=== PATIENT | male | born 1945 | race Caucasian/White ===

== ENCOUNTER 2016-12-07 09:15 | Outpatient (CLI) | payer MEDICARE, OTHER ==
[2016-12-07] MEDS ORDERED: IOPAMIDOL-300 100 ML VIAL IVP ONE (11:10)
[2016-12-07] MEDS ORDERED: IOPAMIDOL-300 50 ML VIAL PO ONE (11:10)
== END 2016-12-07 09:16 | disposition home or self-care (01) ==
DX: R10.10 Upper abdominal pain, unspecified (principal); R10.30 Lower abdominal pain, unspecified; K40.20 Bilateral inguinal hernia, without obstruction or gangrene, not specified as recurrent
CPT/HCPCS: 36415; 74177; 82565; Q9967

== ENCOUNTER 2017-01-27 18:15 | Emergency (ER) | payer MEDICARE, OTHER | END 2017-01-27 19:21 | disposition home or self-care (01) | DX: H60.501 Unspecified acute noninfective otitis externa, right ear (principal) ==

== ENCOUNTER 2017-08-27 10:34 | Emergency (ER) | payer MEDICARE, OTHER ==
--- NOTE | 2017-08-27 12:14 | ED Physician Documentation ---
PD HANSEL HEENT - Stated complaint Stated Complaint: SORE THROAT,HEMORRHOIDS - Chief complaint Chief Complaint: Cardiac - History obtained from History obtained from: Patient, Family - History of Present Illness Timing - onset: How many months ago (2) Timing - duration: Months (2) Timing - details: Gradual onset, Still present, Waxing and waning Location: Throat Improves: Nothing Worsens: Swalllowing Associated symptoms: Congestion, Rhinorrhea, Cough Similar symptoms before: Has not had sx before Recently seen: Other - Additional information Additional information: 71-year-old male has had an issue with a sore throat for the past 2 months. He indicates he has a sensation that he has some phlegm that comes up and some pain associated with this. He also has some cough that is intermittent and he has some abdominal pain associated with this in the form of an inguinal hernia on the left side. He has been into see his doctor about the inguinal hernia he has not been in to see his doctor about this cough and congestion he has had. Earlier in the year he had some otitis externa on the right side is been using treatment for this and this appears to have improved. Review of Systems Constitutional: reports: Myalgias, Fatigue. denies: Fever Eyes: denies: Decreased vision Ears: reports: Ear pain Nose: reports: Rhinorrhea / runny nose, Congestion Throat: reports: Sore throat Cardiac: denies: Chest pain / pressure, Palpitations Respiratory: reports: Cough. denies: Dyspnea GI: reports: Abdominal Pain. denies: Nausea, Vomiting : denies: Dysuria, Frequency Skin: denies: Rash Musculoskeletal: denies: Neck pain, Back pain, Extremity pain PD PAST MEDICAL HISTORY - Past Surgical History Past Surgical History: Yes General: Appendectomy - Present Medications Home Medications: Ambulatory Orders Medication Instructions Recorded Confirmed Azithromycin [Zithromax] 250 mg PO DAILY #6 tablet 08/27/17 Phenylephrine HCl/[place] 08/27/17 [Hemorrhoidal Suppositories] - Allergies Allergies/Adverse Reactions: Allergies Allergy/AdvReac Type Severity Reaction Status Date / Time No Known Drug Allergies Allergy Verified 01/27/17 18:25 - Social History Does the pt smoke?: No Smoking Status: Never smoker Does the pt drink ETOH?: No Does the pt have substance abuse?: No PD ED PE NORMAL - Vitals Vital signs reviewed: Yes (hypertensive mild ) - General General: No acute distress, Well developed/nourished - HEENT HEENT: Atraumatic, PERRL, EOMI, Other (both TM's are inflamed over the umbo worse on the right than the left and the pharynx is with inflamaito over the tonsilar bed with exudate. ) - Neck Neck: Supple, no meningeal sign, No bony TTP - Cardiac Cardiac: RRR, No murmur - Respiratory Respiratory: No respiratory distress, Clear bilaterally - Abdomen Abdomen: Soft, Non tender - Back Back: No CVA TTP, No spinal TTP - Derm Derm: Normal color, Warm and dry, No rash - Extremities Extremities: No deformity, No edema - Neuro Neuro: No motor deficit, No sensory deficit Eye Opening: Spontaneous Motor: Obeys Commands Verbal: Oriented GCS Score: 15 - Psych Psych: Normal mood, Normal affect Results - Vitals Vitals: Vital Signs - 24 hr 08/27/17 10:38 Temperature 36.7 C Heart Rate 67 Respiratory 19 Rate Blood Pressure 143/69 H O2 Saturation 97 Oxygen O2 Source Room air - EKG (time done) 1041 Rate: Rate (enter#) (67) Rhythm: NSR Ischemia: ST depression (inferior mininmal ) Compare to prior EKG: Old EKG unavailable Computer interpretation: Agree with computer PD MEDICAL DECISION MAKING - ED course Complexity details: reviewed old records, reviewed results, re-evaluated patient , considered differential, d/w patient, d/w family ED course: 71-year-old male with a problem with postnasal drainage for the past 2 months has had some complications with this including some issue with his inguinal hernia and he continues to have symptoms which are waxing and waning. On examination he does have otitis media and this is different than what he has had earlier in the year with otitis externa. Here in the emergency department he is administered dexamethasone 10 mg and we will put him on some azithromycin and have him follow-up with Dr. Esposito. Departure - Departure Disposition: 01 Home, Self Care Clinical Impression: Otitis media Qualifiers: Otitis media type: suppurative Chronicity: acute Laterality: bilateral Recurrence: not specified as recurrent Spontaneous tympanic membrane rupture: without spontaneous rupture Qualified Code(s): H66.003 - Acute suppurative otitis media without spontaneous rupture of ear drum, bilateral Condition: Stable Instructions: ED Otitis Media Acute Adult Follow-Up: Florentin Esposito MD [Primary Care Provider] - Prescriptions: Azithromycin [Zithromax] 250 mg PO DAILY #6 tablet
[2017-08-27] MEDS ORDERED: DEXAMETHASONE 10 MG/ML VIAL PO STA (12:18)
[2017-08-27] MEDS ORDERED: DEXAMETHASONE 10 MG/ML VIAL ONE (12:31)
[2017-08-27] MEDS ORDERED: CHERRY SYRUP 10 ML UDC PO ONE (12:32)
[2017-08-27 13:05] VITALS: BP 128/75
== END 2017-08-27 13:08 | disposition home or self-care (01) ==
LOC: ED 10:34
DX: H66.003 Acute suppurative otitis media without spontaneous rupture of ear drum, bilateral (principal)
CPT/HCPCS: 93005; 99283; 99284; A9270

== ENCOUNTER 2018-08-07 09:41 | Outpatient (CLI) | payer MEDICARE, OTHER ==
[2018-08-07 19:47] LABS: BASOPHILS % (AUTO) 0.6 %; EOSINOPHILS % (AUTO) 0.7 %; HGB - HEMOGLOBIN 14.7 g/dL (14.0-18.0); LYMPHOCYTES % (AUTO) 17.4 %; MEAN CORPUSCULAR HEMOGLOBIN 26.8 pg (27.0-31.0); MEAN CORPUSCULAR HGB CONC 32.5 g/dL (32.0-36.0); MEAN CORPUSCULAR VOLUME 82.7 fL (80.0-94.0); MEAN PLATELET VOLUME 7.6 fL (7.4-11.4); MONOCYTES # (AUTO) 0.4 10^3/uL (0.0-1.0); MONOCYTES % (AUTO) 6.8 %; NEUTROPHILS # (AUTO) 4.5 10^3/uL (1.5-6.6); NEUTROPHILS % (AUTO) 74.5 %; PLT - PLATELET COUNT 243 10^3/uL (130-450); RED BLOOD COUNT 5.47 10^6/uL (4.70-6.10); RED CELL DISTRIBUTION WIDTH 13.8 % (12.0-15.0)
[2018-08-07 20:14] LABS: ALBUMIN 4.2 g/dL (3.2-5.5); ALBUMIN/GLOBULIN RATIO 1.6 (1.0-2.2); ALKALINE PHOSPHATASE 38 IU/L (42-121); ALT ALANINE AMINOTRANSFERASE 16 IU/L (10-60); AST ASPARTATE AMINOTRANSFERASE 21 IU/L (10-42); BILIRUBIN,TOTAL 1.1 mg/dL (0.2-1.0); BUN - BLOOD UREA NITROGEN 18 mg/dL (6-20); CALCIUM 9.1 mg/dL (8.5-10.3); CARBON DIOXIDE - CO2 26 mmol/L (21-32); CHLORIDE 101 mmol/L (101-111); CHOL/HDL RATIO 2.7 (<5.0); CHOLESTEROL 191 mg/dL; GFR - MDRD 73 (>89); GLUCOSE 95 mg/dL (70-100); HDL CHOLESTEROL 72 mg/dL; LDL CHOLESTEROL,CALCULATED 102 mg/dL; LDL/HDL RATIO 1.4 (<3.6); SODIUM 136 mmol/L (135-145); TOTAL PROTEIN 6.9 g/dL (6.7-8.2); VLDL CHOLESTEROL 17 mg/dL
== END 2018-08-07 09:42 | disposition home or self-care (01) ==
LOC: LAB.WCP 09:41
PROVIDERS: ATTEND Family Medicine
DX: R06.09 Other forms of dyspnea (principal); E78.5 Hyperlipidemia, unspecified; K21.9 Gastro-esophageal reflux disease without esophagitis; F32.9 Major depressive disorder, single episode, unspecified; Z12.5 Encounter for screening for malignant neoplasm of prostate
CPT/HCPCS: 36415; 80053; 80061; 84443; 85025; G0103; 83721; 84153

== ENCOUNTER 2019-02-09 08:00 | Outpatient (CLI) | payer MEDICARE, OTHER ==
[2019-02-09 13:38] LABS: BASOPHILS % (AUTO) 0.5 %; EOSINOPHILS # (AUTO) 0.1 10^3/uL (0.0-0.7); EOSINOPHILS % (AUTO) 1.4 %; HGB - HEMOGLOBIN 13.5 g/dL (14.0-18.0); LYMPHOCYTES # (AUTO) 1.1 10^3/uL (1.5-3.5); LYMPHOCYTES % (AUTO) 21.7 %; MEAN CORPUSCULAR HEMOGLOBIN 26.3 pg (27.0-31.0); MEAN CORPUSCULAR HGB CONC 32.2 g/dL (32.0-36.0); MEAN CORPUSCULAR VOLUME 81.8 fL (80.0-94.0); MEAN PLATELET VOLUME 7.8 fL (7.4-11.4); MONOCYTES # (AUTO) 0.4 10^3/uL (0.0-1.0); MONOCYTES % (AUTO) 8.5 %; NEUTROPHILS # (AUTO) 3.4 10^3/uL (1.5-6.6); NEUTROPHILS % (AUTO) 67.9 %; PLT - PLATELET COUNT 227 10^3/uL (130-450); RED BLOOD COUNT 5.14 10^6/uL (4.70-6.10); RED CELL DISTRIBUTION WIDTH 14.1 % (12.0-15.0)
[2019-02-09 13:49] LABS: ALBUMIN 3.7 g/dL (3.2-5.5); ALBUMIN/GLOBULIN RATIO 1.3 (1.0-2.2); BILIRUBIN,TOTAL 0.7 mg/dL (0.2-1.0); CALCIUM 8.8 mg/dL (8.5-10.3); TOTAL PROTEIN 6.6 g/dL (6.7-8.2)
[2019-02-09 14:12] LABS: FOLATE 21.61 ng/mL (5.90 - >24.8)
== END 2019-02-09 23:59 | disposition home or self-care (01) ==
LOC: LAB.N 08:00
PROVIDERS: ATTEND Nurse Practitioner
DX: E53.8 Deficiency of other specified B group vitamins (principal)
CPT/HCPCS: 36415; 80053; 82607; 82746; 85025

== ENCOUNTER 2021-02-02 09:30 | Outpatient (CLI) | payer MEDICARE, OTHER ==
--- NOTE | 2021-02-02 17:13 | CONSULTATION NOTE ---
Palliative Care Consultation - Referral Referring Provider: JANKI Martinez Time of Visit: [id number] Referral setting: Home Referral Reason: Dementia with behaviorial disturbances/Advanced Care Planning - Information Sources Records reviewed: Previous records reviewed History/Review of Systems obtained from: Patient, Family (, Duyen and daughter/MARILU Caceres) Exam limitations: Clinical condition (Advanced Dementia) - History of Present Illness Brief History of Present Illness: This is a teresa 75-year-old gentleman who was seen and evaluated in his home for initial palliative care consultation due to a head advancement of his Alzheimer's dementia with behavioral disturbances and advance care planning with his and daughter present. The patient was evaluated by a neurologist, Dr. Moore in 2017 and was diagnosed with Alzheimer's dementia. He had evaluation to evaluate for reversible causes such as hypothyroidism or vitamin B12 deficiency which were normal. He did have a cranial MRI that revealed normal age-related findings including mild small vessel ischemic change in February 2016 approximately. He was initiated on donzepril and titrated up to 10 mg daily. He has not had any recent follow-up with neurology as the patient states is difficult to get him out of the house. Wounds and daughter report that they have not noted any changes the patient being on the medication such as continued functional ability in recent years. The patient's daughter and report that they have noticed a significant cognitive decline over the last year. The patient used to be engaged with puzzle making. He has many puzzles that he is completed that have been mounted and framed. He no longer has an interest in that. He also used to be engaged with walking frequently But that to no longer interest him. He does not ambulate with any assistive devices. He has not had any recent falls. His family has also noticed that he is having increased behavioral disturbances indicative of sundowning. He becomes more irritable and agitated having his days and nights flipped in the early evening hours. He can become more agitated especially towards his . His daughter, Nicki is able to typically calm him down. He now will use cuss words when he never did prior. He has a history of anxiety however, it has been many months since he has taken any of his medications including sertraline, simvastatin, and donzepril. He has been demonstrating increased agitation and anxiety. He will also gather items within the home and then throw them away. This leads the to having to monitor the trash and get items such as clothing and shoes out of the trash. The patient also recently collected the kitchen knives and put it in his bedside table claiming that it was his. Discussed with the patient spouse would recommend Placing all sharp objects in a locked cabinet and she is amenable to this for her safety. He is also displaying hallucinations. He has been seeing people in the mirror. Several months ago he made a hole in the wall as he was trying to free one of the people that he sees. He does not appear to be distressed by these hallucinations and they are friendly. Today, he denies seeing them. There is a recent family get together and the patient did not recognize his sons. The patient's daughter and recognize that the patient is progressing in his Alzheimer's dementia and are looking for further assistance with management and guidance. The patient himself is well groomed and seen sitting in his recliner chair in the common area. 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 He is not able to follow directions of the conversation and has tangential thinking. Medical/Surgical History - Past Medical History Cardiovascular: reports: High cholesterol Respiratory: reports: Shortness of breath (on exertion, pulse ox 98% today with ambulation 02/02/2021) Neuro: reports: Alzhiemer's. denies: CVA, Head injury Endocrine/Autoimmune: reports: None GI: reports: GERD : reports: Incontinence HEENT: denies: Macular degeneration Psych: reports: Anxiety Musculoskeletal: reports: Chronic back pain Derm: reports: None Other Past Medical History: strabismus - Past Surgical History General: reports: Appendectomy HEENT: reports: Other (several strabismus surgeries as a child) Other past surgical history: inguinal herniorrhaphy - Substance History Use: Uses substance without health or social issues: NONE (Remote history of tobacco abuse from high school to his late 40s when he quit. 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 He obtained a DUI and then entered alcoholic annoymous and stopped with no further alochol consumption in decades.) Social History - Living Situation Living arrangement: At home Living Situation: With spouse/s.o. Support System: The patient and his present have been for 49 years. The patient was previously and has 1 daughter from that relationship who is estranged. He and his present have 1 son together. He has 1 stepdaughter and 2 stepsons from his . His stepdaughter, Nicki is very involved in assisting the patient and his with caregiving and is the patient's DPOA with contact number [phone]. The patient's has been his primary caregiver over the last several years with assistance from her daughter, Nicki. There is a family friend who comes and provide some assistance on a weekly and ever other week basis for showering and to be with the patient when the spouse needs to leave the home as he cannot be left and attended. 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 He grew up in [place], [place]. Family History - Family History Family History: Mother: , Father: Family History Comment/Other: The patient's father in in airplane crash in his 30s. His mother in her 60s from lung cancer and was an alcoholic. No family history of dementia. Medications/Allergies - Medications Home Medications: Ambulatory Orders Medication Instructions Recorded Confirmed Citalopram [CeleXA] 10 mg PO DAILY 02/03/21 02/03/21 QUEtiapine [SEROquel] 12.5 mg PO DAILY PRN 02/03/21 02/03/21 - Allergies Allergies/Adverse Reactions: Allergies Allergy/AdvReac Type Severity Reaction Status Date / Time No Known Drug Allergies Allergy Verified 02/03/21 08:01 Review of Systems - Constitutional Constitutional: reports: Weight stable (had a weight loss and then recovered his weight per family report). denies: Fever - Eyes Eyes: reports: Corrective lenses - Ears, Nose & Throat Ears, Nose & Throat: reports: Hearing loss, Dentures (will not provide good care for his dentures or oral care. Will not use mouthwash.). denies: Hearing aids - Cardiovascular Cardiovascular: denies: Chest pain, Edema - Respiratory Respiratory: reports: SOB with exertion (per family report with increased activity). denies: Cough - Gastrointestinal Gastrointestinal: reports: Other (Fair appetite. He has grilled jelly sandwiches three times a day with coffee, tea, limited water, cookies and fruit as his preferences.). denies: Constipation, Vomiting - Genitourinary Genitourinary: reports: Incontinence - Musculoskeletal Musculoskeletal: denies: Joint pain, Assistive devices - Integumentary Integumentary: denies: Rash - Neurological Neurological: reports: Memory problems - Psychiatric Psychiatric: reports: Anxiety, Hallucinations, Behavior disturbances - Endocrine Endocrine: denies: Diabetes type 2 - Hematologic/Lymphatic Hematologic/Lymph: denies: Recurrent infections - All Other Systems All Other Systems: reports: Reviewed and negative (Review of systems supplemented by the patient's daughter and as the patient is a poor historian due to dementia.) Physical Exam - Vital Signs Temperature: 36.9 C Pulse Rate: 61 O2 Saturation: 98 (on RA) Blood Pressure: 132/70 (left arm) - Physical Exam General Appearance: positive: No acute distress, Alert, Other (well groomed) Eyes Bilateral: positive: Normal inspection, Other (+corrective lenses) ENT: positive: No signs of dehydration, Other (+upper dentures; plaque build up to dentition) Neck: positive: Trachea midline. negative: Lymphadenopathy (R), Lymphadenopathy (L) Cardiovascular: positive: Regular rate & rhythm. negative: No murmur Respiratory: positive: No respiratory distress, Breath sounds nml. negative: Rales, Rhonchi Abdomen: positive: Non-tender, Soft, Nml bowel sounds Skin: positive: Dryness (generalized) Extremities: positive: No pedal edema Neurologic/Psychiatric: positive: Disoriented to place, Disoriented to time, Other (fluent in speech with tangential thinking; ambulates without an assistive device with no noted ataxia and decent arm swing) Comments/Other: Ambulated in the home with walking pulse ox 98% with no evidence of dyspnea. Palliative Care - POLST Patient has POLST: No Pain: No pain Performance Status: The patient is ambulatory without assistive devices. No history of falls. No dysphagia reported during meals. Demonstrating behavioral disturbances with hallucinations. Is is resistant to routine hygiene including bathing oral care. Incontinent of bladder. Remains continent of bowels. - Palliative Care Discussion: The patient has had a slow, progressive cognitive decline that has increased significantly over the last year per his family's report. He still maintains his functional abilities overall. He is demonstrating increased behavioral disturbances related to dementia such as lack of hygiene care, bathing, and sundowning behaviors. He is having increased agitation and anxiety most specifically in the evenings and would benefit from further stabilization of his mood with an SSRI that he has tolerated in the past. Given he is difficult to allow administration of medication advised the patient and daughter may crush his medications that are nonextended release for administration. The patient's spouse and daughter recognizes that the patient is changing and advancing in his dementia but have not fully dived into the particulars related to Alzheimer's dementia. Gently directed to the Alzheimer's Association online for further referencing. The patient's spouse is appropriately tearful and acknowledging the decline of the patient and the overall burden of caregiving that she has undertaken with impact to her health. The patient's spouse has had a stroke recently and both the patient's spouse and daughter are looking into additional caregiving options and advance care planning. We will make a referral to [facility] for additional caregiving assistance and plan for additional exploration for management as the patient progresses in his disease process. Provided an overview of the pathophysiology is Alzheimer's dementia across the continuum. Introduced the POLST today as the patient does not have one in place presently. The patient does have a designated healthcare power of commercial real estate attorney and his daughter, Nicki. Will review at an upcoming appointment. Impression and Recommendations - Palliative Care Impression: This is a teresa 75-year-old gentleman with progressing Alzheimer's dementia with hallucinations and behavioral disturbances and underlying anxiety and agitation. He would benefit from reintroduction of SSRI such as citalopram for stabilization of his anxiety and underlying agitation as well as quetiapine for use in acute agitation. The patient's spouse and daughter are looking towards advance care planning and will continue to build rapport and tease out goals of care moving forward. POLST introduced today and will follow up at a future appointment for completion. Palliative care will continue to provide support with pain and symptom management, care coordination and anticipatory guidance. Recommendations/Counseling Done: 1. Anxiety. Previously on sertraline and tolerated well per patient spouse and daughter report due. Due to patient's underlying anxiety in the setting of dementia will initiate citalopram 10 mg daily. Advised may crush medication for administration in pudding or applesauce for ease of administration as the patient has been resistant to taking medications. Advised may take 3 to 6 weeks to see full effect of medication with understanding verbalized. Reviewed side effects again with understanding verbalized. We will continue to monitor and adjust medication regimen as needed based on the patient's response. 2. Hallucinations in the setting of Alzheimer's dementia. Patient is not frightened by his hallucinations. He has demonstrated some behaviors that are concerning such as collecting the kitchen knives. Recommended to the patient's spouse and daughter collecting sharp objects and keeping them in a locked space as a precaution with agreement verbalized. Introduced the use of atypical antipsychotic, quetiapine to use as a low dose at this point in time as needed for hallucinations and sundowning behaviors at 12.5 mg once daily. And if needed, in the future may expect to have scheduled dosing up to 3 times daily. Reviewed the black box warning of quetiapine and potential side effects of drowsiness as well as orthostatic hypotension and weighing benefits versus burdens the patient's spouse and DPOA/daughter wish to proceed with quetiapine use. 3. Hyperlipidemia. No previous history of PA or CVA. Primary prevention of atherosclerosis with time to benefit vs life expectancy vs medication side effects discussed with family. Simvastatin discontinued due to length of time to see benefit of statin therapy and patient's aversion to medication administration with family in agreement. 4.Alzheimer's dementia with behavioral disturbances. Normalized the patient's family's feelings regarding a disease progression and reviewed pathophysiology of dementia. Supportive listening provided. Patient's spouse is having increased caregiving burden and will make a referral to [facility] for additional caregiving assistance. Reviewed that dementia is a progressive, chronic illness and potential expectations regarding disease progression moving forward. Discontinuing disease modifying agent, Aricept as there was no noted benefit in the patient's cognition with administration and he has been out without this medication for many months due to medication aversion. Fall precautions. Behavioral disturbances as noted above under diagnosis of hallucinations. Supportive listening provided. Given the patient's age a gradual decline is expected. 5. Advanced care planning. Patient does not have a POLST in the home and introduced the POLST today. Patient does have a designated healthcare power of commercial real estate attorney and his daughter, Nicki with obtainment of copies today. Discussed addition of caregiving services within the home and again will reach out to [facility] through interagency referral for request of what is available to this family. Also directed to Alzheimer's Association online for additional support and resources. Provided handout for local [place] agencies as a reference as well. In the continuum recommended looking at medicare.gov for memory care facilities as well as adult family homes for future reference and will continue to assist with and safety of the patient and family moving forward. We will continue to tease out goals of care as report is belt. Total time spent 95 minutes with greater than 50% of this spent in counseling and coordination of care with patient, spouse and daughter/DPOA; examination of patient; review of pathophysiology of dementia; supportive listening; introduction of palliative care; review of pain and symptom management and anticipatory guidance. Disclaimer: The chart note was formulated using voice recognition technology and unfortunately sound alike errors may occur.
== END 2021-02-02 09:31 | disposition home or self-care (01) ==
LOC: PC 09:30
PROVIDERS: ATTEND Nurse Practitioner Family
DX: Z51.5 Encounter for palliative care (principal); F41.9 Anxiety disorder, unspecified; G30.9 Alzheimer's disease, unspecified; F02.81 Dementia in other diseases classified elsewhere, unspecified severity, with behavioral disturbance; R44.1 Visual hallucinations; E78.5 Hyperlipidemia, unspecified; F10.21 Alcohol dependence, in remission; Z87.891 Personal history of nicotine dependence
CPT/HCPCS: 99345

== ENCOUNTER 2021-02-23 09:30 | Outpatient (CLI) | payer MEDICARE, OTHER ==
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
== END 2021-02-23 09:31 | disposition home or self-care (01) ==
LOC: PC 09:30
PROVIDERS: ATTEND Nurse Practitioner Family
DX: Z51.5 Encounter for palliative care (principal); G30.9 Alzheimer's disease, unspecified; F02.81 Dementia in other diseases classified elsewhere, unspecified severity, with behavioral disturbance; R44.1 Visual hallucinations; R39.89 Other symptoms and signs involving the genitourinary system; F41.9 Anxiety disorder, unspecified; Z66 Do not resuscitate
CPT/HCPCS: 99350

== ENCOUNTER 2021-04-05 15:00 | Outpatient (CLI) | payer MEDICARE, OTHER ==
--- NOTE | 2021-04-05 18:01 | CONSULTATION NOTE ---
Palliative Care Follow Up - Referral Referring Provider: JANKI Martinez Time of Visit: 4991-2861 Referral setting: Home Referral Reason: Dementia with behavioral disturbances - Information Sources Records reviewed: Previous records reviewed History/Review of Systems obtained from: Patient, Family (spouse Duyen and daughter/MARILU Caceres) Exam limitations: Clinical condition (Advanced Dementia) - History of Present Illness Update Brief HPI Update: This is a 75-year-old gentleman who was seen in follow-up today in his home for Alzheimer's dementia with behavioral disturbances and advance care planning with his and daughter present. Please see history dictated in HPI on 02/02/2021 for full details. The patient was diagnosed with Alzheimer's dementia in 2017. Reversible causes were evaluated and not found. The patient continues to have progression of his dementia with increased behavioral disturbances. 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 He was wandering on his way to [facility]. Since last evaluation he has been in cursing at his and stating "I hate you." He is also more prone to pushing people's hands away. There have not been any physical altercations. The patient's spouse has not locked up the k itchen knives as was previously suggested. The patient continues to take things scattered about the house and then throw them way. The patient's is constantly having to check the garbage for things that the patient has thrown away without her knowledge. 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 On last evaluation the patient had quetiapine 12.5 mg scheduled once daily. This was utilized for the patient's hallucination and sundowning behaviors. However, the patient's in the last few days has started giving the patient quetiapine 25 mg and has not noticed an improvement in the patient's behavior. She has not given an additional as needed dosing. Last evaluation the patient was initiated on tamsulosin 0.4 mg for possible LUTS symptoms as a trial. No evidence of this making a difference 1 way or the other with the patient's symptoms and may need to consider continued benefit in the future after a more prolonged trial for consistent continuation. In his recliner chair today in the common area. He is wearing 2 shirts including a sweatshirt. He is not able to follow directions and has tangential thinking. Past Medical History: Patient has a past medical history of hyperlipidemia, shortness of breath on exertion, Alzheimer's dementia, GERD, incontinence, macular degeneration, strabismus, anxiety, chronic back pain, remote h/o alcohol abuse. Social History - Living Situation Living arrangement: At home Living Situation: With spouse/s.o. Support System: The patient and his present have been for 49 years. The patient was previously and has 1 daughter from that relationship who is estranged. He and his present ,Duyen, have 1 son together. He has 1 stepdaughter and 2 stepsons from his . His stepdaughter, Nicki is very involved in assisting the patient and his with caregiving is the patient's DPOA with contact number [phone]. Palliative Care volunteer, Chandana,has been coming for respite to spend time with the patient and spouse,but Duyen has not yet utilized this time to leave the home and today was encouraged to do so when Chandana nexts visits. Nicki and Duyen have been in contact with [facility] and have completed paperwork for possible LTC placement and are schedueld to have a meeting with an RN for evaluation on 04/13. Medications/Allergies - Medications Home Medications: Ambulatory Orders Medication Instructions Recorded Confirmed Citalopram [CeleXA] 20 mg PO DAILY 02/03/21 04/05/21 QUEtiapine [SEROquel] 25 mg PO DAILY PRN 02/03/21 04/05/21 QUEtiapine [SEROquel] 25 mg PO .MORNING AND 1500 02/23/21 04/05/21 Tamsulosin [Flomax] 0.4 mg PO QPM 04/05/21 04/05/21 - Allergies Allergies/Adverse Reactions: Allergies Allergy/AdvReac Type Severity Reaction Status Date / Time No Known Drug Allergies Allergy Verified 04/05/21 18:06 Review of Systems - Constitutional Constitutional: reports: Weight stable. denies: Fever - Eyes Eyes: reports: Corrective lenses - Ears, Nose & Throat Ears, Nose & Throat: reports: Hearing loss, Dentures (will not provide good care for his dentures or oral care. Will not use mouthwash.). denies: Hearing aids, Dental pain - Cardiovascular Cardiovascular: denies: Chest pain - Respiratory Respiratory: denies: Cough, Wheezing - Gastrointestinal Gastrointestinal: reports: Other (Fair appetite. He has grilled jelly sandwiches three times.). denies: Constipation, Vomiting - Genitourinary Genitourinary: reports: Incontinence (intermittent with hesitancy possible) - Musculoskeletal Musculoskeletal: denies: Assistive devices - Integumentary Integumentary: reports: Dryness - Neurological Neurological: reports: Memory problems - Psychiatric Psychiatric: reports: Anxiety, Hallucinations, Behavior disturbances - Endocrine Endocrine: denies: Diabetes type 2 - All Other Systems All Other Systems: reports: Reviewed and negative (Review of systems sup plemented by the patient's daughter and as the patient is a poor historian due to dementia.) Physical Exam - Vital Signs Temperature: 36.7 C Pulse Rate: 68 O2 Saturation: 96 Blood Pressure: 125/75 (right wrist) - Physical Exam General Appearance: positive: No acute distress, Alert, Other (slightly dishelved as he is no longer shaving and has two shirts on (one a sweat shirt) and he prefers to stay in the same clothes andnot change) Eyes Bilateral: positive: Other (+corrective lenses ; +left exotropia) ENT: positive: No signs of dehydration, Other (+upper dentures) Neck: positive: Trachea midline Cardiovascular: positive: Regular rate & rhythm Respiratory: positive: No respiratory distress, Breath sounds nml. negative: Rales Abdomen: positive: Non-tender, Soft, Nml bowel sounds. negative: Distended Skin: positive: Dryness (generalized) Extremities: positive: No pedal edema Neurologic/Psychiatric: positive: Disoriented to place, Disoriented to time, Other (fluent in speech with tangential thinking; desires attention to be focused on him) Palliative Care - POLST Patient has POLST: Yes POLST Status: DNR, Comfort Measures Pain: No pain - Palliative Care Discussion: Patient continues to have behavioral disturbances related to his underlying dementia specifically related to his avoidance of bathing, lack of hygiene, sundowning behaviors, and increased agitation and outbursts. The patient's is displaying signs of caregiver fatigue and burden to a point that if things continue as they are is concerning for her own underlying health. She is frustrated by the slow process of trying to determine if the patient is eligible for facility placement and also has underlying worry in regards to her ability to maintain assets if the patient were to be placed into a facility. Ultimately, the patient's desires caregiving assistance within the home with facility placement as the next resort if needed. The patient continues to have episodes of increased wandering with recent police assistance with no harm to the patient. The patient's has also not locked up the kitchen knives and this was again emphasized today to the patient's and daughter. Due to the patient's continued behavioral disturbances, after lengthy discussion with spouse and daughter weighing benefits vs burdens, we will increase the patient's citalopram from 10 mg to 20 mg as well as his quetiapine from 25 mg daily to 25 mg twice daily with the expectation that we will need to continue to titrate up on the patient's quetiapine to manage his underlying behaviors and for safety. Impression and Recommendations - Palliative Care Impression: This is a 75-year-old gentleman with progressive Alzheimer's dementia with hallucinations and behavioral disturbances underlying anxiety and agitation. He continues to demonstrate wandering and outbursts and would benefit from dose increase of his quetiapine to 25 mg twice daily and utilization of quetiapine 25 mg once daily as needed for acute anxiety or agitation. For further stabilization will increase the patient's citalopram from 10 mg to 20 mg daily. The patient's is vulnerable with caregiver fatigue and there is a pending [facility] evaluation for her services the patient may qualify for for additional support to the patient and his spouse. Palliative care will continue to provide support for symptom management, care coordination and anticipatory guidance. Recommendations/Counseling Done: 1. Alzheimer's dementia with behavioral disturbances. Empathetic supportive listening provided today to the patient's spouse and daughter. He continues to have wandering behaviors. Again reiterated to the patient's spouse to lock up the knives for safety. No longer on disease modifying agents. Progressive. Chronic. Fall precautions. Due to the continued behaviors will increase quetiapine from 25 mg once daily to 25 mg twice daily in the morning and in the afternoon as the patient typically has sundowning behaviors around 1500. Would expect in the future may need to dose titrate up to 3 times daily dosing. Have quetiapine 25 mg once daily available as needed for acute anxiety or agitation. May titrate up to quetiapine 300 mg/day if needed. May need to consider further adjunct if the patient continues to have minimal response to dose titration of quetiapine and aggressive behavior. Continue to monitor. 2. Anxiety. Previously on sertraline. Has tolerated the introduction of citalopram in February 2021 with previous improvement of underlying anxiety. Increase trial of pram from 10 mg to 20 mg daily. New Rx for citalopram 25 mg sent to [facility] pharmacy for 90-day supply at the patient's spouse request. Advised that it may take 4 to 6 weeks to see full effect of medication adjustment. Continue to monitor and adjust medication regimen based on the patient's response. 3. L UTS. Likely due to BPH. Given the patient's underlying dementia it is difficult for him to articulate his symptoms but it is noted the length of time that the patient spends in the restroom per the patient's spouse and daughter. At the present time we will continue tamsulosin 0.4 mg in the evening for LUTS symptoms as a trial. If no noted benefit continues may have a discussion about increasing dosage to 0.8 mg versus discontinuation with the patient's family weighing benefits versus burdens. 4.Caregiver burden. The patient's spouse is the primary caregiver and despite having occasional caregiving assistance paid privately the patient's spouse is demonstrating signs and symptoms of burnout. Empathetic listening provided. Hope is for the patient to qualify for caregiving assistance through [facility] within the home environment versus long-term care placement. Strongly encouraged the patient spouse to utilize the volunteer from the palliative care and hospice program to provide extra support for respite without any impact on finds. Total time spent 55 minutes with greater than 50% of the spent in counseling coordination of care with the patient, spouse and daughter/Nicki MICHEL; review of caregiving options; supportive and empathetic listening; review of symptom management and anticipatory guidance. Disclaimer: The chart note was formulated using voice recognition technology and unfortunately sound alike errors may occur.
== END 2021-04-05 15:01 | disposition home or self-care (01) ==
LOC: PC 15:00
PROVIDERS: ATTEND Nurse Practitioner Family
DX: Z51.5 Encounter for palliative care (principal); G30.9 Alzheimer's disease, unspecified; F02.81 Dementia in other diseases classified elsewhere, unspecified severity, with behavioral disturbance; R44.3 Hallucinations, unspecified; Z91.83 Wandering in diseases classified elsewhere; F41.9 Anxiety disorder, unspecified; R39.9 Unspecified symptoms and signs involving the genitourinary system; Z66 Do not resuscitate
CPT/HCPCS: 99349

== ENCOUNTER 2021-04-25 11:30 | Outpatient (CLI) | payer MEDICARE, OTHER ==
--- NOTE | 2021-04-25 16:21 | CONSULTATION NOTE ---
Palliative Care Follow Up - Referral Referring Provider: JANKI Martinez Time of Visit: 5465-2591 Referral setting: Home Referral Reason: Dementia with behavioral disturbances - Information Sources Records reviewed: Previous records reviewed History/Review of Systems obtained from: Patient, Family (spouse Duyen and daughter/MARILU Caceres) Exam limitations: Clinical condition (Advanced Dementia) - History of Present Illness Update Brief HPI Update: This is a 75-year-old gentleman who was seen in follow-up today in his home for Alzheimer's dementia with behavioral disturbances with his and daughter present. Please see history dictated in HPI on 02/02/2021 for full details. The patient was diagnosed with Alzheimer's dementia in 2017. Reversible causes were evaluated not found. The patient continues to have progression of his dementia with increased behavioral disturbances. Patient continues to have increasing behaviors that are methodical at times. For example, he will open up crackers and leave them out on a pillow and then stay in the pillowcase much of the 's frustration. He is also pouring rupee or when plates that he lays out. He also at one point climbed below the kitchen table moving plates [id number]. He has had aggressive behavior in the past towards his spouse and there was an incidence with him obtaining a kitchen kitchen knife but this has not repeated. Unfortunately, the patient's spouse does not like not locked up the knives as previously requested. She does not report any fear from the patient. The patient's spouse has reported difficulty with the patient staying asleep overnight with noted insomnia. Trial of trazodone was ineffective and "did not touch him." Therefore, request that this be discontinued. Palliative care volunteers coming to the home regularly however, the patient's spouse has not utilized this is a way to leave the home and practice some self- care due to her being overwhelmed with the advancement and symptoms of the patient's underlying dementia. The patient is seen in the common area. He is wearing to but not shirts and a s weatshirt. He is not able to follow directions and has tangential thinking. Past Medical History: Patient has a past medical history of hyperlipidemia, shortness of breath on exertion, Alzheimer's dementia, GERD, incontinence, macular degeneration, strabismus, anxiety, chronic back pain, remote h/o alcohol abuse. Social History - Living Situation Living arrangement: At home Living Situation: With spouse/s.o. Support System: The patient and his present have been for 49 years. The patient was previously and has 1 daughter from that relationship who is estranged. He and his present ,Duyen, have 1 son together. He has 1 stepdaughter and 2 stepsons from his . His stepdaughter, Nicki is very involved in assisting the patient and his with caregiving is the patient's DPOA with contact number [phone]. Palliative Care volunteer, Chandana,has been coming for respite to spend time with the patient and spouse,but Duyen has not yet utilized this time to leave the home and today was encouraged to do so when Chandana nexts visits again next. More paperwork is needed to be completed as status post [facility] evaluation for long-term care placement. The patient's son has obtain paperwork for walking home as a potential option. Daughter Nicki has not heard back from [facility] and plans on following up in regards to status of application. Medications/Allergies - Medications Home Medications: Ambulatory Orders Medication Instructions Recorded Confirmed Citalopram [CeleXA] 20 mg PO DAILY 02/03/21 04/05/21 QUEtiapine [SEROquel] 25 mg PO DAILY PRN 02/03/21 04/05/21 QUEtiapine [SEROquel] 25 mg PO BID 02/23/21 04/12/21 Tamsulosin [Flomax] 0.4 mg PO QPM 04/05/21 04/05/21 QUEtiapine [SEROquel] 50 mg PO QPM 04/12/21 04/12/21 OLANZapine [Zyprexa] 2.5 mg PO QPM 04/25/21 04/25/21 - Allergies Allergies/Adverse Reactions: Allergies Allergy/AdvReac Type Severity Reaction Status Date / Time No Known Drug Allergies Allergy Verified 04/05/21 18:06 Review of Systems - Constitutional Constitutional: reports: Weight stable. denies: Fever - Eyes Eyes: reports: Corrective lenses (causing indention into bridge of nose) - Ears, Nose & Throat Ears, Nose & Throat: reports: Hearing loss, Dentures (will not provide good care for his dentures or oral care. Will not use mouthwash.). denies: Hearing aids - Cardiovascular Cardiovascular: denies: Edema - Respiratory Respiratory: denies: Cough - Gastrointestinal Gastrointestinal: reports: Other (Fair appetite. He has grilled jelly sandwiches three times a day.). denies: Constipation, Vomiting - Genitourinary Genitourinary: reports: Incontinence (intermittent with hesitancy) - Musculoskeletal Musculoskeletal: denies: Assistive devices - Integumentary Integumentary: reports: Dryness - Neurological Neurological: reports: Memory problems - Psychiatric Psychiatric: reports: Anxiety, Hallucinations, Behavior disturbances - Endocrine Endocrine: denies: Hypothyroidism - All Other Systems All Other Systems: reports: Reviewed and negative (Review of systems supplemented by the patient's daughter and as the patient is a poor historian due to dementia.) Physical Exam - Vital Signs Temperature: 36.2 C Pulse Rate: 64 O2 Saturation: 98 (on RA) Blood Pressure: 132/80 (right arm) - Physical Exam General Appearance: positive: No acute distress, Alert, Other (slightly dishelved as he is no longer shaving and has two shirts on (one a sweat shirt) and he prefers to stay in the same clothes and not change) Eyes Bilateral: positive: Other (+corrective lenses ; +left exotropia) ENT: positive: No signs of dehydration, Other (+upper dentures) Neck: positive: Trachea midline Cardiovascular: positive: Regular rate & rhythm Respiratory: positive: No respiratory distress, Breath sounds nml Abdomen: positive: Non-tender, Soft, Nml bowel sounds Skin: positive: Dryness (generalized) Extremities: positive: No pedal edema Neurologic/Psychiatric: positive: Disoriented to place, Disoriented to time, Oth er (fluent in speech with tangential thinking) Palliative Care - POLST Patient has POLST: Yes POLST Status: DNR, Comfort Measures Pain: No pain Constipation: No - Palliative Care Discussion: Patient continues to have behavioral disturbances related to his underlying dementia specifically rated to his avoidance of bathing, lack of hygiene, insomnia, agitation and outbursts. The patient can continues to display signs of caregiver fatigue and burden that is concerning for her own underlying health. The patient spouse continues to be frustrated regarding the slow process of trying to determine if the patient is eligible for facility placement in their status post [facility] evaluation which the daughter is to follow-up. Patient did not have a response to addition of trazodone to his regimen for behavioral disturbances as well as insomnia and therefore will discontinue. Will trial Zyprexa 2.5 mg nightly to assist with overnight behaviors in addition to quetiapine 25 mg in the morning, 25 mg in the afternoon, 50 mg in the evening. Reviewed purpose, dose and side effects of Zyprexa with the patient's spouse and daughter as well as risks with understanding verbalized in agreement to proceed. Impression and Recommendations - Palliative Care Impression: This is a 75-year-old gentleman with progressive Alzheimer's dementia with hallucinations and behavioral disturbances, underlying anxiety and agitation. He can demonstrate he continues to demonstrate periodic outbursts, insomnia as well as wandering. He did not have a response to trazodone and therefore will discontinue. Will trial an adjunct antipsychotic, Zyprexa 2.5 mg nightly in addition to scheduled quetiapine. To continue citalopram 20 mg daily. The patient's continues to be vulnerable for caregiver fatigue and is status post [facility] evaluation for additional services the patient may qualify for including placement. Palliative care will continue to provide support for symptom management, care coordination and anticipatory guidance. Recommendations/Counseling Done: 1. Alzheimer's dementia with behavioral disturbances and hallucinations. Empathetic supportive listening provided to the patient spouse and daughter today. Patient continues to have strong evidence of behavioral disturbances. No longer on disease modifying agents. Progressive periods chronic. Fall precautions. Discontinue trazodone. Initiate quetiapine 2.5 mg in the evening with purpose, dose and side effects reviewed with the patient's family and understanding verbalized in agreement to proceed. Continue quetiapine 25 mg in the morning, 25 mg in the afternoon, and 50 mg in the evening. May consider if benefit from Zyprexa to titrate off quetiapine in the future. Does have quetiapine 25 mg available to utilize once daily as needed for acute anxiety or agitation. We will need to continue to tease out the best regimen to manage the patient's symptoms and promote safety within the home and comfort for the patient. Did discuss with the patient's family that if at any point they feel any threat from the patient that they are to contact 911 with understanding verbalized. 2. Anxiety. Previously on sertraline. Has tolerated the introduction of citalopram in February 2021 demonstrating decreased overall anxiety. Continue citalopram 20 mg daily. Continue to monitor and adjust medication based on the patient's response. 3. Caregiver burden. The patient's spouse is the primary caregiver and despite having occasional caregiving assistance paid privately the patient spouse is demonstrating signs and symptoms of burnout. Empathetic listening provided. Status post [facility] evaluation and additional follow-up is pending by the patient's daughter. Presently being supported by palliative care volunteer and strongly encouraged the patient spouse to utilize the volunteer to be able to leave the home and provide some self-care. Total time spent 50 minutes with greater than 50% of the spent in counseling coronation of care with the patient, spouse and daughter/Nicki MICHEL; review of [facility] evaluation; discussion of medications support; review of symptom management anticipatory guidance. Disclaimer: The chart note was formulated using voice recognition technology and unfortunately sound alike errors may occur.
== END 2021-04-25 11:31 | disposition home or self-care (01) ==
LOC: PC 11:30
PROVIDERS: ATTEND Nurse Practitioner Family
DX: Z51.5 Encounter for palliative care (principal); G30.9 Alzheimer's disease, unspecified; F02.81 Dementia in other diseases classified elsewhere, unspecified severity, with behavioral disturbance; R44.3 Hallucinations, unspecified; F41.9 Anxiety disorder, unspecified; Z66 Do not resuscitate
CPT/HCPCS: 99349

== ENCOUNTER 2021-05-09 17:33 | Emergency (ER) | payer MEDICARE, OTHER ==
[2021-05-09 17:43] VITALS: BP 140/62
--- NOTE | 2021-05-09 17:56 | ED Physician Documentation ---
PD HPI ALTERED MENTAL STATUS - Stated complaint Stated Complaint: CONFUSION - Chief complaint Chief Complaint: Neuro - History obtained from History obtained from: Patient, Family - Additional information Additional information: 75-year-old gentleman with severe dementia presents accompanied by family. Recently wandering. Today walked into another person's house in his underpants. History is from the by phone and the granddaughter. Also reviewed previous palliative care notes. Review of Systems Unable to obtain: Dementia PD PAST MEDICAL HISTORY - Past Medical History Cardiovascular: High cholesterol Respiratory: Shortness of breath (on exertion, pulse ox 98% today with ambulation 02/02/2021) Endocrine/Autoimmune: None GI: GERD : Incontinence Psych: Anxiety Musculoskeletal: Chronic back pain Derm: None - Past Surgical History Past Surgical History: Yes General: Appendectomy HEENT: Other (several strabismus surgeries as a child) - Present Medications Home Medications: Ambulatory Orders Medication Instructions Recorded Confirmed Citalopram [CeleXA] 20 mg PO DAILY 02/03/21 04/05/21 QUEtiapine [SEROquel] 25 mg PO DAILY PRN 02/03/21 04/05/21 QUEtiapine [SEROquel] 25 mg PO BID 02/23/21 04/12/21 Tamsulosin [Flomax] 0.4 mg PO QPM 04/05/21 04/05/21 QUEtiapine [SEROquel] 50 mg PO QPM 04/12/21 04/12/21 OLANZapine [Zyprexa] 2.5 mg PO QPM 04/25/21 04/25/21 OLANZapine ODT [Zyprexa Odt] 1 tab TL TID PRN #60 tablet 05/09/21 - Allergies Allergies/Adverse Reactions: Allergies Allergy/AdvReac Type Severity Reaction Status Date / Time No Known Drug Allergies Allergy Verified 05/09/21 17:39 - Social History Does the pt smoke?: No Smoking Status: Never smoker Does the pt drink ETOH?: No Does the pt have substance abuse?: No - POLST Patient has POLST: Yes PD ED PE NORMAL - Vitals Vital signs reviewed: Yes - General General: Other (Completely disoriented.) - HEENT HEENT: PERRL, EOMI - Neck Neck: Supple, no meningeal sign, No bony TTP - Cardiac Cardiac: RRR, No murmur - Respiratory Respiratory: No respiratory distress, Clear bilaterally - Abdomen Abdomen: Normal bowel sounds, Soft, Non tender - Back Back: No CVA TTP, No spinal TTP - Derm Derm: Normal color, Warm and dry - Neuro Eye Opening: Spontaneous Motor: Obeys Commands Verbal: Confused GCS Score: 14 Results - Vitals Vitals: Vital Signs - 24 hr 05/09/21 17:39 Temperature 36.6 C Heart Rate 72 Respiratory 16 Rate Blood Pressure 140/62 H O2 Saturation 95 Oxygen O2 Source Room air PD MEDICAL DECISION MAKING - ED course ED course: 75-year-old gentleman presents to the emergency department with severe dementia but no emergency medical condition but they need help with behavior and sedation. He is administered IM Zyprexa here and a prescription for as needed Zyprexa pending palliative care follow-up. The following email was also written to the palliative care nurse practitioner whose been seeing him, Erma Hopson: Taking care of your patient Martín cueto. As you know this is a very demented 75-year-old gentleman who is reached the point of being unable to be cared for by family at home. I am going to start him on Zyprexa, he has been wandering and definitely needs more sedation. Outpatient search for long-term memory care/SNF should be expedited. Thank you Departure - Departure Disposition: 01 Home, Self Care Clinical Impression: Alzheimer's dementia Qualifiers: Alzheimer's disease onset: unspecified onset Dementia behavioral disturbance: with behavioral disturbance Qualified Code(s): G30.9 - Alzheimer's disease, unspecified; F02.81 - Dementia in other diseases classified elsewhere with behavioral disturbance Condition: Good Record reviewed to determine appropriate education?: Yes Instructions: ED Dementia Caregiver Support Prescriptions: OLANZapine ODT [Zyprexa Odt] 1 tab TL TID PRN #60 tablet PRN Reason: Agitation
[2021-05-09] MEDS ORDERED: OLANZapine 10 MG VIAL IM STA (17:57)
== END 2021-05-09 18:08 | disposition home or self-care (01) ==
LOC: ED 17:33
DX: G30.9 Alzheimer's disease, unspecified (principal); F02.81 Dementia in other diseases classified elsewhere, unspecified severity, with behavioral disturbance; Z91.83 Wandering in diseases classified elsewhere
CPT/HCPCS: 96372; 99281; 99283

== ENCOUNTER 2021-05-11 09:40 | Outpatient (CLI) | payer MEDICARE ==
--- NOTE | 2021-05-11 11:53 | CONSULTATION NOTE ---
Palliative Care Follow Up - Referral Referring Provider: JANKI Martinez Time of Visit: 9511-5373 Referral setting: Home Referral Reason: Dementia with behavior disturbance - Information Sources Records reviewed: Previous records reviewed History/Review of Systems obtained from: Patient, Family (spouse, Duyen; daughter/DPOA Nicki; granddaughter Ally; son) Exam limitations: Clinical condition (Advanced Dementia) - History of Present Illness Update Brief HPI Update: This is a 75-year-old gentleman who was seen in follow-up today in his home for Alzheimer's dementia with behavioral disturbances with his , daughter, son, and granddaughter present. Please see history dictated in HPI on 02/02/2021 for full details. Patient has was diagnosed with Alzheimer's dementia in 2017. Reversible causes were evaluated and not found. The patient continues to have progression of dementia with behavioral disturbances. He continues to have increasing behaviors that are Cannon thought to call at times. Recently, on 05/09 the patient ambulated out of the home in his underpants and went into a neighbor's home. This resulted in an emergency department visit where he was seen and evaluated and given an IM injection of Zyprexa and discharged with ice Zyprexa ODT 5 mg 3 times daily as needed. The patient's spouse prior to this hospital that will visit had not slept in approximately 2 days. With palliative care CHIEF SCIENTIST have been titrating his antipsychotic medication and last initiated Zyprexa 2.5 mg approximately 1.5 weeks ago. Would benefit from further increase of Zyprexa as well as quetiapine. Patient spouse has been hesitant in appropriately administering quetiapine dosage however, the patient's daughter has been giving quetiapine 50 mg in the morning, 50 mg in the afternoon, 75 mg at bedtime. Given concerns for the patient's safety as well as the patient's primary caregiver and significant other the patient ultimately needs further sedation and ideally a facility placement however, this is likely to be difficult as [facility] has declined the patient's application due to a piece of property that he no longer has. He typically is able to take his medications well for his daughter and sometimes for his . He does count his pills that are being administered and he is aware regarding how many he is being provided. The patient initially came out to greet this CHIEF SCIENTIST in the driveway. He is wearing for button-down shirts. He ambulates without an assistive device with a slightly shuffling gait. No recent falls. Past Medical History: Patient has a past medical history of hyperlipidemia, shortness of breath on exertion, Alzheimer's dementia, GERD, incontinence, macular degeneration, strabismus, anxiety, chronic back pain, remote h/o alcohol abuse. Social History - Living Situation Living arrangement: At home Living Situation: With spouse/s.o. Support System: The patient and his present have been for 49 years. The patient was previously and has 1 daughter from that relationship who is estranged. He and his present ,Duyen, have 1 son together. He has 1 stepdaughter and 2 stepsons from his . His stepdaughter, Nicki is very involved in assisting the patient and his with caregiving is the patient's DPOA with contact number [phone]. Palliative Care volunteer, Chandana,has been coming for respite to spend time with the patient and spouse. On Chandana's last visit Duyen did leave the home and is encouraged to continue to do so for respite. Family reports they received word that they were declined by [facility] for watermelon inspector care placement. The patient's son is working on completing paperwork for [facility] and the family coming together to assist with funds for a short time. Medications/Allergies - Medications Home Medications: Ambulatory Orders Medication Instructions Recorded Confirmed Citalopram [CeleXA] 20 mg PO DAILY 02/03/21 04/05/21 QUEtiapine [SEROquel] 75 mg PO TID 02/23/21 04/12/21 Tamsulosin [Flomax] 0.4 mg PO QPM 04/05/21 04/05/21 QUEtiapine [SEROquel] 50 mg PO QPM 04/12/21 04/12/21 OLANZapine [Zyprexa] 5 mg PO QPM 04/25/21 04/25/21 OLANZapine ODT [Zyprexa Odt] 1 tab TL TID PRN #60 tablet 05/09/21 - Allergies Allergies/Adverse Reactions: Allergies Allergy/AdvReac Type Severity Reaction Status Date / Time No Known Drug Allergies Allergy Verified 05/09/21 17:39 Review of Systems - Constitutional Constitutional: reports: Weight stable. denies: Fever - Eyes Eyes: reports: Corrective lenses - Ears, Nose & Throat Ears, Nose & Throat: reports: Hearing loss, Dentures. denies: Hearing aids - Cardiovascular Cardiovascular: reports: Edema (trace). denies: Chest pain - Respiratory Respiratory: denies: Cough - Gastrointestinal Gastrointestinal: reports: Other (Fair appetite. He has grilled jelly sandwiches three times a day.). denies: Constipation, Vomiting - Genitourinary Genitourinary: reports: Incontinence (intermittent with hesitancy) - Musculoskeletal Musculoskeletal: denies: Assistive devices - Integumentary Integumentary: reports: Dryness - Neurological Neurological: reports: Memory problems - Psychiatric Psychiatric: reports: Anxiety, Hallucinations, Behavior disturbances - All Other Systems All Other Systems: reports: Reviewed and negative (Review of systems supplemented by the patient's daughter, , son and granddaughter as the patient is a poor historian due to dementia.) Physical Exam - Vital Signs Temperature: 36.6 C Pulse Rate: 86 O2 Saturation: 96 (on RA) Blood Pressure: 152/78 - Physical Exam General Appearance: positive: No acute distress, Alert, Other (slightly dishelved -daughter was able to assist with shaving---and he prefers to stay in the same clothes and not change) Eyes Bilateral: positive: Other (+corrective lenses ; +left exotropia) ENT: positive: No signs of dehydration, Other (+upper dentures) Neck: positive: Trachea midline Cardiovascular: positive: Regular rate & rhythm Respiratory: positive: No respiratory distress, Breath sounds nml Abdomen: positive: Non-tender, Soft, Nml bowel sounds Skin: positive: Dryness (generalized due to lack of bathing) Extremities: positive: Pedal edema (trace BLE edema) Neurologic/Psychiatric: positive: Disoriented to place, Disoriented to time, Other (fluent in speech with tangential thinking) Palliative Care - POLST Patient has POLST: Yes POLST Status: DNR, Comfort Measures Pain: No pain Sleep: Variable sleep pattern - Palliative Care Discussion: Patient continues to have behavioral disturbances related to his underlying dementia specifically related to avoidance of bathing, lack of hygiene, insomnia, agitation, outbursts and wandering. The patient's continues to display signs of caregiver fatigue and burden that is concerning for her own underlying health. Unfortunately, [facility] was denied for financial assistance for long-term care placement. The patient's family is working on coming together to provide [facility] monetary funds for the patient to potentially placed at [facility]. Discussion regarding benefits versus burdens of titrating up antipsychotic medications had today with all family members present. Given the risk of the patient having an adverse event due to his wandering and his safety outweigh the burdens of sedation. Therefore, family in agreement to titrate up Zyprexa from 2.5 mg nightly to 5 mg as well as quetiapine to a total of 75 mg 3 times daily. Strongly encouraged the patient spouse the need for consistent administration of the medications in order to dose titrate appropriately with understanding verbalized. All family members are in agreement with the plan of care and understand the potential side effects of the medication. Family members wish to focus on comfort measures and recognize the patient's behaviors as a progression of dementia. Impression and Recommendations - Palliative Care Impression: This is a 75-year-old gentleman with progressive Alzheimer's dementia with hallucinations and behavioral disturbances, underlying anxiety and agitation when wandering. The patient continues to demonstrate behaviors that are not well managed and risk for adverse event. Will increase Zyprexa and quetiapine for further sedation with family's permission in agreement weighing benefits versus burdens and recognizing the burdens wish to optimize the patient's comfort and provide safety. The patient's continues to be vulnerable with fair caregiver fatigue and continue to encourage volunteer services from the palliative care program. Palliative care will continue to provide support for symptom management, care coordination and anticipatory guidance. Recommendations/Counseling Done: 1. Alzheimer's Dementia with behavior disturbances and hallucinations. Empathetic and supportive listening provided to all family members today and normalization of feelings regarding losing the patient's former self due to progression of his dementia. The patient continues to have strong evidence of behavioral disturbances and is status post emergency department visit. No longer on disease modifying agents. Fall precautions. Discontinue quetiapine 25 mg daily as needed for agitation or anxiety. Increase quetiapine to 75 mg in the morning, 75 mg in the afternoon, and 75 mg in the evening. Patient's daughter had already been administering during quetiapine 50 mg in the morning, 50 mg in the afternoon and 75 mg in the evening. Will increase Zyprexa to 5 mg in the evening and new Rx sent to [facility] pharmacy per family request. Continue Zyprexa ODT 5 mg 3 times daily as needed for escalating behaviors or acute anxiety which was reviewed with the patient's family today. Discussed may not give any additional Zyprexa as the max daily dose is 20 mg/day with family verbalizing understanding. Discussed benefits versus burdens of titrating up antipsychotics to achieve increased sedation and risk of potential falls and subsequent sequela leg however, the patient feels that the benefits outweigh the burden and wish to move forward with titration of the antipsychotics to improve management of the patient's symptoms and promote safety within the home and comfort for the patient as well as the patient's spouse. Discussed that at any point that the family felt that there was a threat from the patient they are to contact EMS and when in the hospital to request for social work assistance with understanding verbalized. 2. Anxiety. Previously on sertraline. Has tolerated introduction of citalopram in February 2021. Continue citalopram 20 mg daily. Continue to monitor and adjust medication based on the patient's response. 3. Caregiver burden. The patient's spouse is the primary caregiver and despite having occasional caregiving assistance paid privately the patient's spouse is demonstrating continued signs and symptoms of burnout. Empathetic listening provided to both the patient spouse and family. Status post [facility] evaluation. Followed and supported by palliative care volunteer and continue to strongly encourage the patient spouse to utilize the volunteer to be able to leave the home and provide self-care and have respite. Encourage the patient's spouse to spend time with her friend Janice. 4. Advanced care planning. Patient with progressive dementia with behavioral disturbances. Patient's family recognizes the signs and symptoms of progression of dementia and wish to focus on comfort measures and patient is DN AR with comfort measures however, was denied financial support from [facility]. Family to work on placement privately if at all possible and are presently working with [facility] in [place]. Total time spent 60 minutes with greater than 50% of the spent in counseling coronation of care with the patient, spouse, daughter/DPOA, son and granddaughter; review of medication management with review of risks versus burdens and side effects; review of symptom management and anticipatory guidance. Disclaimer: The chart note was formulated using voice recognition technology and unfortunately sound alike errors may occur.
== END 2021-05-11 09:41 | disposition home or self-care (01) ==
LOC: PC 09:40
PROVIDERS: ATTEND Nurse Practitioner Family
DX: Z51.5 Encounter for palliative care (principal); G30.9 Alzheimer's disease, unspecified; F02.81 Dementia in other diseases classified elsewhere, unspecified severity, with behavioral disturbance; Z91.83 Wandering in diseases classified elsewhere; F41.9 Anxiety disorder, unspecified; Z66 Do not resuscitate
CPT/HCPCS: 99350

== ENCOUNTER 2021-05-16 17:25 | Outpatient (CLI) | payer MEDICARE ==
--- NOTE | 2021-05-16 18:26 | CONSULTATION NOTE ---
Palliative Care Follow Up - Referral Referring Provider: Dr. Rc Garduno Time of Visit: 1106-2164 Referral setting: Home Referral Reason: Dementia with behavioral disturbances - Information Sources Records reviewed: Previous records reviewed History/Review of Systems obtained from: Patient, Family (spouse, Duyen and granddaughter, Ally) Exam limitations: Clinical condition (Advanced Dementia) - History of Present Illness Update Brief HPI Update: This is a 75-year-old gentleman who was seen in follow-up today in his home for Alzheimer's dementia with behavioral disturbances with his , Duyen and granddaughter, Luna present at the request of the patient's due to persistent behavioral disturbances with interventions that have not been effective. Please see history dictated in HPI on 02/02/2021 for full details The patient was diagnosed with Alzheimer's dementia in 2017. Reversible causes were evaluated and not found. The patient continues to have progression of dementia with behavioral disturbances. He continues to have increasing behaviors that are not controlled at home. He was seen on 05/09 in the Emergency Department due to esclating behaviors and wandering that required an IM injection of Zyprexa and was discharged on Zyprexa OD 5mg TID as needed for anxiety. The patient's spouse had not slept in 2 days prior to the event due to increasing behaviors. On 05/11 his evening zyprexa was increased to 5mg nightly and his seroquel was increased to 75mg TID. The patient's spouse reports the doses increases of zyprexa and quetiapine have not been effective. The patient continues to be restless, fidget, pull out all the kitchen items and percervate with pacing and trying to leave the home. He did however, sleep last evening but the last few days has been going to bed later at 10pm and rising at 5AM. His spouse has given PRN doses of zyprexa ODT that has not led to sedation or reduction of agitated behaviors. The patient's family is looking for facility placement but cannot afford independently and are continually contacting [facility] regarding assistance after they have submitted an application. The patient's reports that to the best of her knowledge he continues to have routine defecation, however, he will not allow her in the restroom and has displayed suspicion to his spouse vs other members of the family, not untypical with dementia. The patient is seen in his recliner chair mumbling repetively and then displaying tangential thinking. He is wearing a flannel shirt over button up shirts. Past Medical History: Patient has a past medical history of hyperlipidemia, shortness of breath on exertion, Alzheimer's dementia, GERD, incontinence, macular degeneration, strabismus, anxiety, chronic back pain, remote h/o alcohol abuse. Social History - Living Situation Living arrangement: At home Living Situation: With spouse/s.o. Support System: The patient and his present have been for 49 years. The patient was previously and has 1 daughter from that relationship who is estranged. He and his present ,Duyen, have 1 son together. He has 1 stepdaughter and 2 stepsons from his . His stepdaughter, Nicki is very involved in assisting the patient and his with caregiving is the patient's DPOA with contact number [phone]. Palliative Care volunteer Chandana is providing support. Medications/Allergies - Medications Home Medications: Ambulatory Orders Medication Instructions Recorded Confirmed Citalopram [CeleXA] 20 mg PO DAILY 02/03/21 04/05/21 QUEtiapine [SEROquel] 75 mg PO TID 02/23/21 04/12/21 Tamsulosin [Flomax] 0.4 mg PO QPM 04/05/21 04/05/21 Haloperidol Oral Soln [Haldol Oral 1 mg PO DAILY PRN 05/16/21 05/16/21 Soln] Haloperidol Oral Soln [Haldol Oral 1 mg PO TID 05/16/21 05/16/21 Soln] - Allergies Allergies/Adverse Reactions: Allergies Allergy/AdvReac Type Severity Reaction Status Date / Time No Known Drug Allergies Allergy Verified 05/09/21 17:39 Review of Systems - Constitutional Constitutional: reports: Weight stable. denies: Fever - Eyes Eyes: reports: Corrective lenses - Ears, Nose & Throat Ears, Nose & Throat: reports: Hearing loss. denies: Hearing aids - Cardiovascular Cardiovascular: reports: Edema (trace). denies: Chest pain - Gastrointestinal Gastrointestinal: reports: Other (Fair appetite. He has grilled jelly sandwiches three times a day.). denies: Constipation (see HPI), Vomiting - Genitourinary Genitourinary: reports: Incontinence (intermittent with hesitancy) - Musculoskeletal Musculoskeletal: denies: Assistive devices - Neurological Neurological: reports: Memory problems - Psychiatric Psychiatric: reports: Anxiety, Hallucinations, Aggitation, Behavior disturbances - Endocrine Endocrine: denies: Diabetes type 2 - All Other Systems All Other Systems: reports: Reviewed and negative (Review of systems supplemented by the patient's , and granddaughter as the patient is a poor historian due to dementia.) Physical Exam - Physical Exam General Appearance: positive: No acute distress, Alert, Other (slightly dishelved -- he prefers to stay in the same clothes and not change) Eyes Bilateral: positive: Other (+corrective lenses ; +left exotropia) ENT: positive: No signs of dehydration Neck: positive: Trachea midline Cardiovascular: positive: Regular rate & rhythm Respiratory: positive: No respiratory distress, Breath sounds nml Abdomen: positive: Non-tender, Soft, Nml bowel sounds. negative: Guarding, Distended, Other (+bladder nondistended) Skin: positive: Dryness (generalized due to lack of bathing) Extremities: positive: Pedal edema (trace BLE edema) Neurologic/Psychiatric: positive: Disoriented to place, Disoriented to time, Other (fluent in speech with tangential thinking, initial mumbling) Palliative Care - POLST Patient has POLST: Yes POLST Status: DNR, Comfort Measures - Palliative Care Discussion: The patient continues to have behavioral disturbances related to his underlying dementia specifically related to insomnia, agitation, outbursts perseverating, and wandering that places him at increased risk when regards to his safety as well as that of his spouse. The patient spouse is currently displaying high degree of caregiver fatigue and burnout with concerns for her own underlying health. The family is attempting long-term care placement but are struggling with finances and DSHS. Unfortunately with addition of Zyprexa even with dose titration has not been effective in managing the patient's behaviors and adding another layer of safety and instead is leading to a possible paradoxical response. Recommend discontinuation of all forms of Zyprexa and will trial Haldol 2 mg / 1 mL formulation initially administered At 1 mg 3 times daily to reduce the patient's agitation, hallucination, perseverating behaviors recognizing that this can place the patient at increased risk of sedation, fall, and cardiac event however, the risks outweigh the benefits at the present time to keep the patient safely within his home requiring NC increased sedation due to escalating behaviors. Patient's family, spouse and granddaughter in agreement and recogni ze the risks and wish to move forward with this trial. Family wishes to remain focused on comfort measures and recognize the patient's behaviors are progression of his dementia. Impression and Recommendations - Palliative Care Impression: This is a 75-year-old gentleman with progressive Alzheimer's dementia with hallucinations and behavioral disturbances, underlying anxiety and agitation with wandering. The patient continues to demonstrate behaviors that are not well managed and risk for adverse event. He has not responded to zyprexa dose titration with possible parodoxical response with request to discontinue. Will trial haldol 2mg/ml on scheduled dosing of 1mg TID and hold if sedated. Family' is in agreement to trial haldol after weighing benefits versus burdens and recognizing the benefits of moving forward with the trial optimize the patient's comfort and provide safety. The patient's continues to be v ulnerable with fair caregiver fatigue and continue to encourage volunteer services from the palliative care program. Palliative care will continue to provide support for symptom management, care coordination and anticipatory guidance. Recommendations/Counseling Done: 1. Alzheimer's dementia with behavioral disturbances and hallucinations. Empathetic listening provided to patient's spouse and granddaughter today. The patient continues to have strong evidence of behavioral disturbances and Zyprexa escalation in dose has not been effective in managing the patient's behaviors and risk for safety. Recommend discontinuation of all Zyprexa, Zyprexa 5 mg in the evening and Zyprexa ODT 5 mg 3 times daily with granddaughter and spouse verbalizing understanding. We will continue quetiapine 75 mg 3 times daily. Reviewed initiation of Haldol with blackbox warning and potential side effects of drowsiness as well as potential for cardiac arrhythmia and orthostatic hyp otension with understanding verbalized in agreement to proceed. Will initiate Haldol 2 mg/mL begin 1 mg 3 times daily initially to get ahead of the patient's behaviors and if too sedated will hold the Haldol with understanding verbalized by both the spouse and granddaughterLuna. Provided 1 mL syringe and reviewed demonstration with administration to spouse and granddaughter of 0.5 mL which equates to 1 mg with return demonstration. Room to continue to titrate if needed with ultimate goal of the patient safety as well as the safety of the spouse in order for the patient to remain safely within his home environment. All family recognize that with increased antipsychotic medications increases the risk of patient's sedation but at the present time the benefits of increased sedation outweigh the risk given the patient's present behaviors within the home environment. All parties in agreement with plan of care with questions answered and addressed. 2. Caregiver burden. The patient's spouse is the primary caregiver and despite having occasional caregiving assistance with paid caregivers privately, the patient's spouse is demonstrating continued signs and symptoms of burnout. Park pportive listening provided. Encouraged spouse and her sons' to continue to reach out to [facility] regarding re-review of application and assistance. Followed and supported by palliative care volunteer. Total time spent 25 minutes with greater than 50% of the spent in counseling and coordination of care with the patient's spouse and granddaughter, Luna; review of medication management of behavioral disturbances weighing benefits versus burdens and addressing questions associated with this; examination of patient; symptom management and anticipatory guidance. Disclaimer: The chart note was formulated using voice recognition technology and unfortunately sound alike errors may occur.
== END 2021-05-16 17:26 | disposition home or self-care (01) ==
LOC: PC 17:25
PROVIDERS: ATTEND Nurse Practitioner Family
DX: Z51.5 Encounter for palliative care (principal); G30.9 Alzheimer's disease, unspecified; F02.81 Dementia in other diseases classified elsewhere, unspecified severity, with behavioral disturbance; Z91.83 Wandering in diseases classified elsewhere; Z66 Do not resuscitate
CPT/HCPCS: 99348

== ENCOUNTER 2021-05-18 09:00 | Outpatient (CLI) | payer MEDICARE ==
--- NOTE | 2021-05-18 13:37 | PROVIDER PROGRESS NOTE ---
HPI/Interval History - HPI/Interval History This is a 75-year-old gentleman who is having a follow-up today due to his Alzheimer's dementia with behavioral disturbances with his , Duyen on the phone. Please see history dictated in HPI on 02/02/2021 for full details. The patient was diagnosed with Alzheimer's dementia in 2017. No reversible causes were identified and routine work-up. The patient has had progression of his dementia with behavioral disturbances that have been difficult to control. He had been having increasing behaviors within the home that even resulted in an emergency department visit on 05/09 that required an IM injection of Zyprexa. Patient was last seen 2 days ago on 05/16 at the request of the patient's spouse as the patient was not responding to initiation of Zyprexa ODT as well as evening dose of Zyprexa 5 mg with continued ambulation, wandering, and restlessness. On 05/16 the Zyprexa was discontinued all forms at the request of this TRAFFIC CHECKER. The patient was then initiated on Haldol 2 mg/mL solution to administer 1 mg 3 times a day for agitation and may administer an additional dose of Haldol at 1 mg once daily. The patient's granddaughter, Luna created a medication flow chart that the patient spouse has been following and this has provided assistance with monitoring. The patient also continues on quetiapine 75 mg 3 times daily. The patient's son, Jac Marcum contacted the hospice line last evening indicating that the patient was displaying signs of increased sedation. However, in follow-up with patient's spouse she reports that he is sleeping a little bit more in the chair after administration of Haldol for approximately 30 to 45 minutes but does not appear to be increased Horacio sedated. She also reports he continues to have max trickle thinking with mumbling that remains at baseline. She is not initiated though stool softener and stimulant however, the patient did wander earlier this week into a neighbor's home where he locked himself in the bathroom. This required the patient's granddaughter to assist with collecting the patient from that home. There were no falls or injuries. The patient spouse does report that he did sleep well overnight from approximately 10:30 PM to 6:30 AM. The patient spouse however, continues to have disruptive sleep as she sleeps lightly for fear of what the patient may be doing in the home as she typically wakes up and finds things scattered about the home or things thrown away in the garbage. During this phone call the patient is attempting to disassemble his recliner chair. Review of Systems - Constitutional Constitutional: denies: Fever - Eyes Eyes: reports: Corrective lenses - Ears, Nose & Throat Ears, Nose & Throat: reports: Hearing loss. denies: Hearing aids - Cardiovascular Cardiovascular: denies: Chest pain - Respiratory Respiratory: denies: Cough - Gastrointestinal Gastrointestinal: denies: Constipation (see HPI) - Genitourinary Genitourinary: reports: Incontinence (intermittent with hesitancy) - Musculoskeletal Musculoskeletal: denies: Assistive devices - Integumentary Integumentary: reports: Dryness - Neurological Neurological: reports: Memory problems - Psychiatric Psychiatric: reports: Anxiety, Hallucinations, Aggitation, Behavior disturbances - All Other Systems All Other Systems: reports: Reviewed and negative (Review of systems supplemented by the patient's as patient a poor historian due to dementia.) Medications/Allergies - Medications Home Medications: Ambulatory Orders Medication Instructions Recorded Confirmed Citalopram [CeleXA] 20 mg PO DAILY 02/03/21 04/05/21 QUEtiapine [SEROquel] 75 mg PO TID 02/23/21 04/12/21 Tamsulosin [Flomax] 0.4 mg PO QPM 04/05/21 04/05/21 Haloperidol Oral Soln [Haldol Oral 1 mg PO DAILY PRN 05/16/21 05/16/21 Soln] Haloperidol Oral Soln [Haldol Oral 1 mg PO TID 05/16/21 05/16/21 Soln] Sennosides/Docusate Sodium [Senna 1 tab PO Q48H 05/18/21 05/18/21 Plus 8.6-50 mg Tablet] - Allergies Allergies/Adverse Reactions: Allergies Allergy/AdvReac Type Severity Reaction Status Date / Time No Known Drug Allergies Allergy Verified 05/09/21 17:39 Physical Exam - Physical Exam This was an audio visit and unable to visualize the patient and due to his dementia is unable to participate. Palliative Care - POLST Patient has POLST: Yes POLST Status: DNR, Comfort Measures Pain: No pain - Palliative Care Discussion: The patient has been having behavioral disturbances related to his underlying dementia specifically related to insomnia, agitation outbursts, perseverating wandering that places him at increased risk with regards to his safety as well as the safety of his spouse. Since introduction of Haldol The patient has slept through the night allowing the patient's spouse to have increased rest as well as some reduction in the patient's overall activity during the day. With lengthy discussion with the patient's spouse she does not wish to make any adjustments to the regimen at this time to see where the patient lands and then move forward with adjustment if needed. Find that this is likely a feasible plan at the present time understands to contact palliative care if any concerns. Impression and Recommendations - Palliative Care Impression: This is a 75-year-old gentleman with progressive Alzheimer's dementia with hallucinations and behavioral disturbances, underlying anxiety and agitation with wandering. The patient has had some improvement with his underlying behaviors with initiation of Haldol 1 mg 3 times daily discontinuation of Zyprexa. The patient spouse reports that he has not been too sedated with initiation of Haldol. The ultimate goal is to optimize the patient's comfort and to provide safety. The patient's continues to be vulnerable with caregiver fatigue and burnout. Palliative care will continue to provide support for symptom management, care coordination and anticipatory guidance. Recommendations/Counseling Done: 1. Alzheimer's dementia with behavioral disturbances and hallucinations. Zyprexa was not an effective intervention with introduction. Zyprexa was discontinued on 05/16 and Haldol 2 mg/mL was begun at 1 mg 3 times daily. Patient has been tolerating Haldol 1 mg 3 times daily and this has provided some decrease in behaviors and most especially allowing the patient's spouse to have additional sleep in the evening as the patient is sleeping through the night. Would recommend continuation of Haldol 1 mg 3 times daily as well as quetiapine 75 mg 3 times daily staggered between Haldol dosing. Patient spouse has found having a chart with the medications helpful. At the present time, both the patient's spouse as well as daughter/Nicki MICHEL do not wish to make changes to the medication regimen and will reassess where the patient lands at next visit to determine any further dose adjustments of his medications. Continue to monitor and adjust medications to optimize the patient's comfort. 2. Constipation. Unclear if patient is having any signs or symptoms of constipation and is he remains mobile and is not verbal towards the patient's spouse regarding defecation. Recommended to the patient's spouse to initiate Colace 50 mg/senna 8.6 mg 1 tablet this evening and to do so every other day as a trial if any underlying constipation may be contributing factor to the patient's behavior with understanding verbalized in agreement. Total time spent 15 minutes with greater than 50% of the spent in counseling and coordination of care with the patient's spouse and daughter/DPOA Nicki; review of medication management for behavioral disturbances; supportive listening and anticipatory guidance. Telehealth Visit - TeleMedicine Visit Referring Provider: JANKI Martinez Visit Type:: TeleHealth Phone Call Patient agrees and consents to this telehealth visit type: Yes Patient agrees to have their insurance billed: Yes Video Type: audio only Participants:: Spouse/Significant Other (Duyen), Child (Nicki) Location of provider:: Office Location of patient:: Home Time spent:: 15 minutes Provider Statement: I spent 100% on the TeleHealth Phone Call with the patient with greater than 50% spent counseling the patient and coordination of care.
== END 2021-05-18 09:01 | disposition home or self-care (01) ==
LOC: PC 09:00
PROVIDERS: ATTEND Nurse Practitioner Family
DX: Z51.5 Encounter for palliative care (principal); G30.9 Alzheimer's disease, unspecified; F02.81 Dementia in other diseases classified elsewhere, unspecified severity, with behavioral disturbance; Z91.83 Wandering in diseases classified elsewhere; K59.00 Constipation, unspecified; Z66 Do not resuscitate

== ENCOUNTER 2021-05-22 14:55 | Outpatient (CLI) | payer MEDICARE ==
--- NOTE | 2021-05-22 17:01 | CONSULTATION NOTE ---
Palliative Care Follow Up - Referral Referring Provider: JANKI Martinez Time of Visit: 4432-4143 Referral setting: Home Referral Reason: Dementia with behavior/Wandering - Information Sources Records reviewed: Previous records reviewed History/Review of Systems obtained from: Patient, Family (spouse, Duyen, daughter/DPOA Nicki, granddaughter Ally) Exam limitations: Clinical condition (Advanced Dementia) - History of Present Illness Update Brief HPI Update: This is a 75-year-old gentleman who is seen in follow-up today due to Alzheimer's dementia with behavioral disturbances that continues to be uncontrolled with his spouse, Duyen, daughter/DPRALPH Caceres, granddaughter, Luna present. Please see history dictated in HPI on 02/02/2021 for full details. The patient was diagnosed with Alzheimer's dementia in 2017. No reversible causes were identified with routine work-up. The patient has had progressive dementia with behavioral disturbances that have been difficult to control. The increasing behaviors within the home resulted in an emergency department visit on 05/09 that required an IM injection of Zyprexa. Unfortunately, the patient was then discharged back home with continued behaviors. The patient will have verbal outbursts with his spouse. He will frequently refuse medications from his spouse which then require the patient's granddaughter or daughter to come to the home to assist with medication administration. He will wander out of the home and has gone into neighbors homes. Over the weekend, the patient eloped and less and left the home and would refuse to get back in the car. He has walked all the way to [facility] independently. He will appropriately walk on the sidewalk and look both ways before crossing the street but will not follow street lights. Has the patient was not responding to Zyprexa it was discontinued on 05/16. He continues on quetiapine 75 mg 3 times daily. He was initiated on Haldol 2 mg/mL solution 1 05/16 and this has gradually been titrated to 2 mg in the morning/1 mg in the afternoon, and 1 mg in the evening. Despite these dose titrations the patient continues to lash out and have behavioral disturbances. None of the dose titrations have led to increased sedation. He was initiated on a stool softener and supplement however, he has not been eff ective in taking this. He chewed the medication yesterday and spit it out. He continues to look for facility placement and has been in contact with [facility] for assistance but has not had return phone calls. On initial presentation at the home this afternoon, the patient was not at home having left the premises about 30 to 40 minutes prior and neither the spouse, granddaughter, or daughter were able to track down the patient at his usual prefer places. Police Department was notified. During the course of the home visit the patient was found by the police department and fire department and ret urn back home safely. The patient has surprisingly changed his pants as that he had become wet earlier in the day. He was only wearing 3 shirts as opposed to 4. It has been sometime since he has allowed any bathing. Past Medical History: Patient has a past medical history of hyperlipidemia, shortness of breath on exertion, Alzheimer's dementia, GERD, incontinence, macular degeneration, strabismus, anxiety, chronic back pain, remote h/o alcohol abuse. Social History - Living Situation Living arrangement: At home Living Situation: With spouse/s.o. Support System: The patient and his present have been for 49 years. The patient w as previously and has 1 daughter from that relationship who is estranged. He and his present , Duyen, have 1 son together. He has 1 stepdaughter and 2 stepsons from his . His stepdaughter, Nicki is very involved in assisting the patient and his with caregiving is the patient's DPOA with contact number [phone] as well as his granddaughter, Ally. Palliative Care volunteer Chandana is providing support. They have applied for [facility] support and have not received return calls per report. Given the patient's elopement from the home today with continued concern for the patient's and spouse's well-beings and safety a call was place to APS regarding self neglect for the patient who are going to look into the matter further and this CLAIMS ADJUSTOR made intake physician primary care sports medicine aware that the patient is in a loving home and additional needs are required to support the behavior disturbances due to dementia. Case Report Number [id number]. Medications/Allergies - Medications Home Medications: Ambulatory Orders Medication Instructions Recorded Confirmed Citalopram [CeleXA] 20 mg PO DAILY 02/03/21 04/05/21 QUEtiapine [SEROquel] 75 mg PO TID 02/23/21 04/12/21 Haloperidol Oral Soln [Haldol Oral 1 mg PO .AT 1600 AND 2200 05/16/21 05/16/21 Soln] Haloperidol Oral Soln [Haldol Oral 1 mg PO DAILY PRN 05/16/21 05/16/21 Soln] Sennosides/Docusate Sodium [Senna 1 tab PO Q48H 05/18/21 05/18/21 Plus 8.6-50 mg Tablet] Divalproex Dr [Depakote Dr] 125 mg 05/22/21 Haloperidol Oral Soln [Haldol Oral 2 mg PO DAILY 05/22/21 05/22/21 Soln] - Allergies Allergies/Adverse Reactions: Allergies Allergy/AdvReac Type Severity Reaction Status Date / Time No Known Drug Allergies Allergy Verified 05/09/21 17:39 Review of Systems - Constitutional Constitutional: denies: Fever - Eyes Eyes: reports: Corrective lenses - Ears, Nose & Throat Ears, Nose & Throat: reports: Hearing loss. denies: Hearing aids - Cardiovascular Cardiovascular: denies: Chest pain - Respiratory Respiratory: denies: Cough - Gastrointestinal Gastrointestinal: reports: Other ( reports decrease in oral intake from baseline). denies: Abdominal pain, Constipation (see HPI, has not been effectively taking oral medication), Vomiting - Genitourinary Genitourinary: reports: Incontinence (intermittent with hesitancy) - Musculoskeletal Musculoskeletal: denies: Assistive devices - Integumentary Integumentary: reports: Dryness - Neurological Neurological: reports: Memory problems - Psychiatric Psychiatric: reports: Anxiety, Hallucinations, Aggitation, Behavior disturbances - All Other Systems All Other Systems: reports: Reviewed and negative (Review of systems supplemented by the patient's , daughter and granddaughter as patient a poor historian due to dementia.) Physical Exam - Vital Signs Temperature: 36.7 C - Physical Exam General Appearance: positive: No acute distress, Alert, Other (slightly dishelved and has not shaven) Eyes Bilateral: positive: Other (+corrective lenses ; +left exotropia) ENT: positive: No signs of dehydration Neck: positive: Trachea midline Cardiovascular: positive: Regular rate & rhythm Respiratory: positive: No respiratory distress, Breath sounds nml Abdomen: positive: Non-tender, Soft, Nml bowel sounds, Other (+round) Skin: positive: Dryness (generalized due to lack of bathing) Extremities: positive: Pedal edema (trace BLE edema) Neurologic/Psychiatric: positive: Disoriented to place, Disoriented to time, Other (fluent in speech with tangential thinking, slightly agitated with request of haldol and quetipaine be administered during visit) Comments/Other: Agitated and refused vital signs Palliative Care - POLST Patient has POLST: Yes POLST Status: DNR, Comfort Measures Sleep: Variable sleep pattern - Palliative Care Discussion: The patient continues to have behavioral disturbances relating to his underlying Alzheimer's dementia specifically insomnia, outbursts verbally to his spouse, agitation and wandering at places him at increased risk with regards to safety as well as the safety of his spouse. The patient spouse continues to display a high degree of caregiver fatigue and burnout despite the support of therapy were very supportive family. The patient's family has been attempting long-term care placement but are struggling with finances and DSHS. Unfortunately, the patient did not tolerate Zyprexa. This was discontinued and dosages of Haldol have been titrated upward with to no avail. The patient also continues not only on Haldol but on quetiapine. Given increasing agitation and wandering made recommendation for trial of Depakote 125 mg in the evening for 3 nights and then if tolerating increase to twice daily dosing with purpose, dose, and side effects reviewed with patient's DPOA and family with understanding verbalized and in agreement to move forward. Impression and Recommendations - Palliative Care Impression: This is a 75-year-old gentleman with progressive Alzheimer's dementia with hallucinations and behavioral disturbances, underlying anxiety and agitation with wandering not presently controlled. The patient had wandered out of the home prior to this [facility] arrival and was able to return to the home with assistance of local Police Department and fire department. With initiation of Zyprexa the patient had a possible paradoxical response and was discontinued. He continues on Haldol and quetiapine. Given his increased outburst will initiate Depakote trialing at 125 mg in the evening x3 nights and if tolerating increase to 125 mg twice daily. The ultimate goal is to optimize the patient's comfort and provide safety not only for himself but his spouse as well. The patient spouse continues to be vulnerable to caregiver fatigue. Palliative care will continue provide support for symptom management, care coordination and anticipatory guidance. Recommendations/Counseling Done: 1. Alzheimer's dementia with behavioral disturbances. Chronic. Progressive. Fall precautions. Patient continues to have wandering behaviors and concerns for safety. Evidence of self-neglect. No longer on disease modifying agents. Initiate Depakote 125 mg nightly x3 nights and if tolerating increase to 125 mg twice daily with purpose, dose, and side effects reviewed with the patient's spouse, daughter/DPOA and granddaughter with understanding verbalized in agreement to proceed for management of agitation. Continue quetiapine 75 mg 3 times daily. Continue Haldol 2 mg in the morning, 1 mg in the afternoon, and 1 mg in the evening. Has as needed Haldol 1 mg as needed to be administered. Typically, the patient is reluctant to take any medications from his spouse and requires assistance from family members that are not residing in the home to administer the medications. May titrate up to quetiapine 300 mg/day if needed. If the patient displays continued signs and symptoms of agitation, verbal aggression or there are concerns for safety advised to the patient's family they are to contact 911 with understanding verbalized. If 911 has to be contacted request that they make a plea for a geriatric psychiatric evaluation and assistance for facility placement through the emergency department. 2. Self-neglect. Patient does not have self-awareness given his history of advancing dementia. He is not providing routine self-care and is reluctant to allow any assistance in this department and refuses medications at times more specifically from his spouse. Contacted APS with a report provided with family and acknowledgment and agreement. 3. Caregiver burden. The patient spouse is the primary caregiver and despite having occasional caregiving assistance with paid caregivers privately as well as his once week palliative care volunteer the patient spouse is demonstrating continued signs and symptoms of burnout. Concerns for the patient's spouses health as well as her safety. Supportive listening provided. Encouraged the patient spouse and family to continue to reach out to [facility] regarding review of application and assistance for long-term care placement. 4. LUTS. Patient has been refusing flomax and therefore request that this be discontinued. 5. Bowel regimen. Unclear if patient is having routine bowel movements given his self neglect and resistance to others to monitor. Continue encouragement of senna/colace administration. Total time spent 75 minutes with greater than 50% of the spent in counseling and coordination of care with the patient's spouse, daughter/DPOA, and granddaughter, Luna; review of medication management of behavioral disturbances weighing benefits versus burdens and addressing questions related to this; interaction with police department officer; examination of the patient; symptom management and anticipatory guidance. Disclaimer: The chart note was formulated using voice recognition technology and unfortunately sound alike errors may occur.
== END 2021-05-22 14:56 | disposition home or self-care (01) ==
LOC: PC 14:55
PROVIDERS: ATTEND Nurse Practitioner Family
DX: Z51.5 Encounter for palliative care (principal); G30.9 Alzheimer's disease, unspecified; F02.81 Dementia in other diseases classified elsewhere, unspecified severity, with behavioral disturbance; Z91.83 Wandering in diseases classified elsewhere; Z66 Do not resuscitate
CPT/HCPCS: 99350

== ENCOUNTER 2021-05-27 09:25 | Emergency (ER) | payer MEDICARE ==
[2021-05-27] MEDS ORDERED: HALOPERIDOL 5 MG/ML VIAL IM STA (12:20)
--- NOTE | 2021-05-27 12:22 | ED Physician Documentation ---
PD HPI MHE - Stated complaint Stated Complaint: FAILURE TO THRIVE - Chief complaint Chief Complaint: MHE - History obtained from History obtained from: Family - Additional information Additional information: 75-year-old gentleman with dementia with behavioral disturbances brought in by daughter. They have been out of their meds for the last 3 days or so. His medications include: Haldol 2 mg/mL solution, 1 mL in the morning and then 0.5 mL in the afternoon and evening, Seroquel 75 mg 3 times daily, and Depakote 125 mg twice a day. Daughter brings him in, there is no medical complaints except that he is more agitated being out of his meds and she is feeling burned out. Review of Systems Unable to obtain: Confused PD PAST MEDICAL HISTORY - Past Medical History Cardiovascular: High cholesterol Respiratory: Shortness of breath (on exertion, pulse ox 98% today with ambulation 02/02/2021) Endocrine/Autoimmune: None GI: GERD : Incontinence Psych: Anxiety Musculoskeletal: Chronic back pain Derm: None - Past Surgical History Past Surgical History: Yes General: Appendectomy HEENT: Other (several strabismus surgeries as a child) - Present Medications Home Medications: Ambulatory Orders Medication Instructions Recorded Confirmed Citalopram [CeleXA] 20 mg PO DAILY 02/03/21 04/05/21 QUEtiapine [SEROquel] 75 mg PO TID 02/23/21 04/12/21 Haloperidol Oral Soln [Haldol Oral 1 mg PO .AT 1600 AND 2200 05/16/21 05/16/21 Soln] Haloperidol Oral Soln [Haldol Oral 1 mg PO DAILY PRN 05/16/21 05/16/21 Soln] Sennosides/Docusate Sodium [Senna 1 tab PO Q48H 05/18/21 05/18/21 Plus 8.6-50 mg Tablet] Divalproex [Kobe Mckenzie] 125 mg 05/22/21 Haloperidol Oral Soln [Haldol Oral 2 mg PO DAILY 05/22/21 05/22/21 Soln] Divalproex [Kobe Mckenzie] 125 mg PO BID #60 tablet 05/27/21 Haloperidol Oral Soln [Haldol Oral 1 ml PO TID 30 Days #90 ml 05/27/21 Soln] QUEtiapine [SEROquel] 3 tab PO TID #270 tablet 05/27/21 - Allergies Allergies/Adverse Reactions: Allergies Allergy/AdvReac Type Severity Reaction Status Date / Time No Known Drug Allergies Allergy Verified 05/27/21 10:12 - Social History Does the pt smoke?: No Smoking Status: Never smoker Does the pt drink ETOH?: No Does the pt have substance abuse?: No - POLST Patient has POLST: Yes PD ED PE NORMAL - Vitals Vital signs reviewed: Yes - General General: Other (Alert and oriented to person only, he is wandering and moderately difficult to redirect.) - Derm Derm: Normal color, Warm and dry - Extremities Extremities: No deformity, No tenderness to palpate, Normal ROM s pain, No edema, No calf tenderness / cord - Neuro Verbal: Confused Results - Vitals Vitals: Vital Signs - 24 hr 05/27/21 05/27/21 10:05 12:47 Temperature 36.1 C L Heart Rate 66 66 Respiratory 16 16 Rate Blood Pressure 133/67 H 150/71 H O2 Saturation 100 100 Oxygen O2 Source Room air PD MEDICAL DECISION MAKING - ED course ED course: 75-year-old gentleman with dementia presents with agitation due to being out of his medications. He was administered 5 mg of IM Haldol here. Seen by the social work and resources given. Daughter comfortable taking him home albeit she is burned out. Departure - Departure Disposition: 01 Home, Self Care Clinical Impression: Alzheimer's dementia Condition: Stable Record reviewed to determine appropriate education?: Yes Instructions: ED Dementia Caregiver Support Follow-Up: Erma Hopson ARNP, GEOPH[employer]ICAL LABORATORY DIRECTOR-BC [Provider Admit Priv/Credential] - Prescriptions: Divalproex Dr [Depakochance Mckenzie] 125 mg PO BID #60 tablet Haloperidol Oral Soln [Haldol Oral Soln] 1 ml PO TID 30 Days #90 ml QUEtiapine [SEROquel] 3 tab PO TID #270 tablet Comments: Prescriptions were sent electronically to [facility] in [place]. Return anytime if worsening or if new medical issues develop. Otherwise follow- up with the palliative care nurse practitioner and follow the resources given by our transition social worker.
[2021-05-27 12:47] VITALS: BP 150/71
== END 2021-05-27 13:03 | disposition home or self-care (01) ==
LOC: ED 09:25
DX: Z76.0 Encounter for issue of repeat prescription (principal); G30.9 Alzheimer's disease, unspecified; F02.81 Dementia in other diseases classified elsewhere, unspecified severity, with behavioral disturbance; R32 Unspecified urinary incontinence; F41.9 Anxiety disorder, unspecified; Z79.899 Other long term (current) drug therapy
CPT/HCPCS: 96372; 99281; 99283

== ENCOUNTER 2021-05-30 15:40 | Outpatient (CLI) | payer MEDICARE ==
--- NOTE | 2021-05-30 18:17 | CONSULTATION NOTE ---
Palliative Care Follow Up - Referral Referring Provider: JANKI Martinez Time of Visit: 1156-4163 Referral setting: Home Referral Reason: Dementia with behavior - Information Sources Records reviewed: Previous records reviewed History/Review of Systems obtained from: Family (spouse, jose and daughter/MARILU Caceres) Exam limitations: Clinical condition (Advanced Dementia) - History of Present Illness Update Brief HPI Update: This is a 75-year-old gentleman who was seen in follow-up today due to Alzheimer's dementia with behavioral disturbances that continues to be presenting with uncontrolled behaviors per her spouse, Jose and daughter/MARILU Caceres who are both present. Please see history dictated in HPI on 02/02/2021 for full details. The patient was diagnosed with Alzheimer's dementia in 2017. No reversible causes were identified with routine work-up. The patient has had progressive dementia with behavioral disturbances that has been difficult to control. The patient had increasing behaviors within the home that resulted in an emergency department visit on 05/09 that required IM injection of Zyprexa and unfortunately, the patient was then discharged back home with continued behaviors. When 05/27 the patient ran medication and again presented to the emergency department. When they presented to the emergency department the patient was having significant agitation and lashing out at his daughter stating I am going to kill you" and having significant behaviors that resulted in IM injection of Haldol. The family made a plea that they are unable to have the patient return home with these continued behaviors however, and they have felt that they have been abandoned by the system and are significantly worn out with caring for the patient with his continued behaviors. And the patient's family has been working with [facility] regarding long-term care placement. Given the significant strain physically and emotionally caring for the patient has done for the patient spouse, Jose the family is looking to pull together to help the patient participate in a respite stay at a memory care unit [place] and they are presently on a waiting list. The patient had run out of his quetiapine due to the pharmacy not being able to dispense the medication per the daughter's report. Therefore, the patient and spouse were able to appreciate that the quetiapine is assisting with his behaviors. He was initiated on Depakote last week however, the patient is spitting out these medications. Presently, the patient typically takes his Haldol with ease and it is hit or miss if he gets all of his doses of quetiapine. Today, the family reports that it has been "a few weeks" since the patient has been receiving his citalopram as he was not consistent with allowing administration. Pleasantly, the patient's appetite has taken a significant shift and he is no longer on a diet of grilled jelly sandwiches but is eating and consuming more variety of foods. He is now presenting with urinary incontinence. He will not wear depends. His spouse is noting that he will increase lower edema more specifically to his feet. The patient perseverates on all his attire and typically will not remove his clothing. The patient initially presented outside greeting this [facility] with a shuffling gait wearing a short sleeve button up shirt over a longsleeve button up shirt and appears disheveled. Past Medical History: Patient has a past medical history of hyperlipidemia, shortness of breath on exertion, Alzheimer's dementia, GERD, incontinence, macular degeneration, strabismus, anxiety, chronic back pain, remote h/o alcohol abuse. Social History - Living Situation Living arrangement: At home Living Situation: With spouse/s.o. Support System: The patient and his present have been for 49 years. The patient was previously and has 1 daughter from that relationship who is estranged. He and his present , Jose, have 1 son together. He has 1 stepdaughter and 2 stepsons from his . His stepdaughter, Nicki is very involved in assisting the patient and his with caregiving is the patient's DPOA with contact number [phone] as well as his granddaughter, Ally. the patient's granddaughter is going to be relocating out of state. Palliative Care volunteer Chandana is providing support. They have applied for [facility] support. Medications/Allergies - Medications Home Medications: Ambulatory Orders Medication Instructions Recorded Confirmed QUEtiapine [SEROquel] 75 mg PO TID 02/23/21 05/30/21 Haloperidol Oral Soln [Haldol Oral 1 mg PO DAILY PRN 05/16/21 05/30/21 Soln] Haloperidol Oral Soln [Haldol Oral 2 mg PO TID 05/22/21 05/30/21 Soln] polyethylene glycoL 3350 [Miralax] 0.5 cap PO DAILY 05/30/21 05/30/21 traZODone [Desyrel] 1 tab PO QPM PRN 05/30/21 05/30/21 - Allergies Allergies/Adverse Reactions: Allergies Allergy/AdvReac Type Severity Reaction Status Date / Time No Known Drug Allergies Allergy Verified 05/27/21 10:12 Review of Systems - Constitutional Constitutional: denies: Fever - Eyes Eyes: reports: Corrective lenses - Ears, Nose & Throat Ears, Nose & Throat: reports: Hearing loss. denies: Hearing aids - Cardiovascular Cardiovascular: reports: Edema (noted to feet). denies: Chest pain - Respiratory Respiratory: denies: Cough - Gastrointestinal Gastrointestinal: reports: Other (recent increase in food variety and appetite). denies: Abdominal pain, Constipation (see HPI, has not been effectively taking oral medication), Vomiting - Genitourinary Genitourinary: reports: Incontinence (increased). denies: Dysuria - Musculoskeletal Musculoskeletal: denies: Assistive devices - Integumentary Integumentary: reports: Dryness - Neurological Neurological: reports: Memory problems - Psychiatric Psychiatric: reports: Anxiety, Hallucinations, Aggitation, Behavior disturbances - All Other Systems All Other Systems: reports: Reviewed and negative (Review of systems supplemented by the patient's and daughter as patient a poor historian due to dementia.) Physical Exam - Vital Signs Temperature: 36.6 C Pulse Rate: 60 O2 Saturation: 95 (on RA) Blood Pressure: 148/88 - Physical Exam General Appearance: positive: No acute distress, Alert, Other (Dishelved) Eyes Bilateral: positive: Other (+corrective lenses ; +left exotropia) ENT: positive: No signs of dehydration, Other (poor oral hygeine as declines oral care) Neck: positive: Trachea midline Cardiovascular: positive: Regular rate & rhythm, Other (distal hands cool to touch) Respiratory: positive: No respiratory distress, Breath sounds nml Abdomen: positive: Non-tender, Soft, Nml bowel sounds, Other (+round) Skin: positive: Dryness (generalized due to lack of bathing), Other (Dried skin between all toes and thickened, elongated toenails) Extremities: positive: Pedal edema (trace BLE edema) Neurologic/Psychiatric: positive: Disoriented to place, Disoriented to time, Other (fluent in speech with tangential thinking; haldol was administered prior to visit and patient was calm to allow this [employer] and daughter to provide foot care with a foot bath that has not occurred in months calmly.) Palliative Care - POLST Patient has POLST: Yes POLST Status: DNR, Comfort Measures Pain: No pain Sleep: Variable sleep pattern Performance Status: Patient is ambulatory without an assistive device. No recent falls. Poor self- care and hygiene. Incontinent of bladder. Able to self feed. F AST 6D - Palliative Care Discussion: The patient continues to have behavioral disturbances related to his underlying Alzheimer's dementia specifically verbal outbursts, agitation, wandering and insomnia. Unfortunately, the patient has not been consistent with taking the Depakote that was initiated for his outbursts and agitation. Given he ran out of his quetiapine his family reports that it is effective in leveling some of his behaviors as there was quite a shift in his mood when he was out of this medication as he continued to have his Haldol available. Will increase the patient's Haldol to 2 mg 3 times a day. In an attempt to further control the patient's behaviors. The patient's family is demonstrating significant and fatigue related to the caregiver burden management of the patient's symptoms. Patient spouse would benefit from respite stay when and if that becomes available as well as continued assistance from [facility] for long-term care placement in a memory care facility. Being in a memory care facility would also allow more consistency with medication administration as the patient himself does not always take medications from his spouse to determine appropriate dosing and titration. Impression and Recommendations - Palliative Care Impression: This is a 75-year-old gentleman with progressive Alzheimer's dementia with hallucinations behavioral disturbances with agitation and wandering behaviors not presently controlled. He continues on Haldol and quetiapine and would benefit from a increase of his Haldol to 2 mg 3 times daily for ease of administration. The patient is not always consistent with taking his quetiapine. We will discontinue Depakote as the patient would spit this medication out. He has not been taking citalopram and we will have him remain off of this. The ultimate goal is to optimize the patient's comfort and provide safety mentally for himself but his spouse as well. Palliative care will continue to provide support for symptom management, care coordination and anticipatory guidance. Recommendations/Counseling Done: 1. Alzheimer's dementia with behavioral disturbances. Chronic. Progressive. Fall precautions. Patient continues to have outbursts of agitation and wandering behaviors. Zyprexa had a paradoxical response and was discontinued. Patient would not adhere to administration of Depakote and therefore will discontinue this. Was not consistent in administration of citalopram and will remain off of this. Continue quetiapine 75 mg 3 times daily (quetiapine 50 mg and quetiapine 25 mg tablets. Increase Haldol to 2 mg 3 times daily. Continue Haldol 1 mg daily as needed for acute anxiety and agitation. Titrated off Haldol as this is easier for the family to administer given its liquid formation. Would benefit from long-term care placement and encourage the patient's family to continue to work with [facility] for placement. 2.Constipation. Unclear if the patient is having routine bowel movements given his resistance to others to monitor as well as his self-neglect. Bowel sounds are positive x4 quadrants and abdomen is soft and nondistended. Recommend initiation of MiraLAX half a cap daily in the afternoon dissolved in 6 ounces of liquid for prevention of constipation. 3. Elongated toenails and poor skin hygiene. Patient demonstrates self neglect. Able to provide a foot care today for the patient by washing his feet which not has not been performed in months. Made recommendation to [facility] hog ringer, Dr. Iglesias for to follow-up for toenail trimming if she has the desire to do so, however, set expectations that this may not be achievable with the patient's behaviors and there is no in home service available. 4.Advance care planning. Patient has POLST in place as DN AR with comfort measures. Patient's family wishes to focus more and comfort and for the patient to be safe within his home environment. Patient would benefit from a memory care facility and encouraged the family to continue to work with [facility] regarding placement. Supportive and empathetic listening provided to the patient's family. Total time spent 60 minutes with greater than 50% of the spent in counseling and coordination of care with the patient daughter/DPOA and the spouse; review of medication management with questions answered and addressed; creation of medication administration log and grid; examination of the patient and foot care; symptom management and anticipatory guidance. Disclaimer: The chart note was formulated using voice recognition technology and unfortunately sound alike errors may occur.
== END 2021-05-30 15:41 | disposition home or self-care (01) ==
LOC: PC 15:40
PROVIDERS: ATTEND Nurse Practitioner Family
DX: Z51.5 Encounter for palliative care (principal); G30.9 Alzheimer's disease, unspecified; F02.81 Dementia in other diseases classified elsewhere, unspecified severity, with behavioral disturbance; Z91.83 Wandering in diseases classified elsewhere; R32 Unspecified urinary incontinence; L60.8 Other nail disorders; Z79.899 Other long term (current) drug therapy; Z66 Do not resuscitate
CPT/HCPCS: 99350

== ENCOUNTER 2021-06-08 09:45 | Outpatient (CLI) | payer MEDICARE ==
--- NOTE | 2021-06-08 10:58 | CONSULTATION NOTE ---
Palliative Care Follow Up - Referral Referring Provider: JANKI Martinez Time of Visit: [id number] Referral setting: Home Referral Reason: Dementia with behavior - Information Sources Records reviewed: Previous records reviewed History/Review of Systems obtained from: Patient, Family (daughter, Nicki; spouse Duyen; granddaughter, Ally) Exam limitations: Clinical condition (Advanced Dementia) - History of Present Illness Update Brief HPI Update: This is a 75-year-old gentleman who was seen in follow-up today due to Alzheimer's dementia with behavioral disturbances that continues to be presenting with uncontrolled behaviors per her spouse, Duyen, daughter/DPOA Nicki and granddaughter, Ally who are present. Please see history dictated in HPI on 02/02/2021 for full details. The patient was diagnosed with Alzheimer's dementia in 2017. No reversible causes were identified with routine work-up. The patient has had progressive dementia with behavioral disturbances that has been difficult to control. The patient had increasing behaviors within the home that resulted in an emergency department visit on 05/09 that required IM injection of Zyprexa and unfortunately, the patient was then discharged back home with continued behaviors. When 05/27 the patient ran medication and again [facility] with significant behaviors that resulted in IM injection of Haldol. He continues to remain difficult regarding dose titration given the patient's ability to take medications as well as the patient spouse says accuracy with dosage administration. It is hit or miss if the patient has been receiving the requested dose of Haldol and this is supported by the patient's daughter who reports the spouse present giving a reduction in Haldol inadvertently and has required reeducation. They have been crushing the patient's quetiapine and putting it in his images and monitoring consumption. He was unable to tolerate Depakote as he was spitting out the capsules and would not swallow. He continues to wander. This morning, the local company hazmat driver were called twice for locating the patient's. At 1 point this morning, the patient was trying to get into a another neighbor's car that belonged to someone else that was unoccupied. He is sleeping more during the day and is up at night. Have trialed tasks such as folding towels in the past that have not been effective. He does have blocks that he will fill with but then often puts food in it resulting in increased cleanup for the patient's spouse. He will have approximately 2 days at a time will he work he will be up and barely rest resulting in him sleeping after these events for significant amount of time. He did sustain approximately 3 falls after 1 such event where he stayed up for approximately 2 days without reported injury. 1 of those falls resulted in the patient's daughter coming to the home to assist with getting the patient up and back into bed. He is having increased urinary incontinence saturating his close. It is difficult for the patient to allow hygiene care. He is refusing to wear depends. Initially presents sleeping in his recliner chair with no evidence of acute distress. When awoken presents with tangential thinking. Past Medical History: Patient has a past medical history of hyperlipidemia, shortness of breath on exertion, Alzheimer's dementia, GERD, incontinence, macular degeneration, strabismus, anxiety, chronic back pain, remote h/o alcohol abuse. Social History - Living Situation Living arrangement: At home Living Situation: With spouse/s.o. Support System: The patient and his present have been for 49 years. The patient was previously and has 1 daughter from that relationship who is est ranged. He and his present , Duyen, have 1 son together. He has 1 stepdaughter and 2 stepsons from his . His stepdaughter, Nicki is very involved in assisting the patient and his with caregiving is the patient's DPOA with contact number [phone] as well as his granddaughter, Ally. the patient's granddaughter is going to be relocating out of state. Palliative Care volunteer Chandana is providing support. They have applied for [facility] support however were "rejected" due to a prior property per daughter's report. The patient's son will be present over the weekend and spouse wishes to attempt a shower. Daughter, Nicki will be out of town next month for vacation and so spouse will have decreased support in the home. Medications/Allergies - Medications Home Medications: Ambulatory Orders Medication Instructions Recorded Confirmed QUEtiapine [SEROquel] 75 mg PO TID 02/23/21 06/08/21 Haloperidol Oral Soln [Haldol Oral 1 mg PO DAILY PRN 05/16/21 06/08/21 Soln] Haloperidol Oral Soln [Haldol Oral 2 mg PO TID 05/22/21 06/08/21 Soln] polyethylene glycoL 3350 [Miralax] 0.5 cap PO DAILY 05/30/21 06/08/21 traZODone [Desyrel] 1 tab PO QPM PRN 05/30/21 06/08/21 Valproic Acid (As Sodium Salt) 125 mg PO QPM 06/08/21 06/08/21 [Valproic Acid] - Allergies Allergies/Adverse Reactions: Allergies Allergy/AdvReac Type Severity Reaction Status Date / Time No Known Drug Allergies Allergy Verified 05/27/21 10:12 Review of Systems - Constitutional Constitutional: denies: Fever, Poor appetite (has improved with more diversified foods) - Eyes Eyes: reports: Corrective lenses - Ears, Nose & Throat Ears, Nose & Throat: reports: Hearing loss, Other (does not preform or allow dental hygeine). denies: Hearing aids - Cardiovascular Cardiovascular: reports: Edema (noted to feet). denies: Chest pain - Respiratory Respiratory: denies: Cough - Gastrointestinal Gastrointestinal: reports: Good appetite. denies: Constipation (see HPI, has not been effectively taking oral medication), Vomiting - Genitourinary Genitourinary: reports: Incontinence. denies: Dysuria - Musculoskeletal Musculoskeletal: reports: Other (recent history of falls). denies: Assistive devices - Integumentary Integumentary: reports: Dryness, Other (Long toenails) - Neurological Neurological: reports: Memory problems - Psychiatric Psychiatric: reports: Anxiety, Hallucinations (increased hallucinations and delusions reported by family), Aggitation, Behavior disturbances - Endocrine Endocrine: denies: Hypothyroidism - All Other Systems All Other Systems: reports: Reviewed and negative (Review of systems supplemented by the patient's , daughter and granddaughter as patient a poor historian due to dementia.) Physical Exam - Vital Signs Temperature: 36.9 C Pulse Rate: 71 O2 Saturation: 97 (on RA) Blood Pressure: 137/86 (left wrist) - Physical Exam General Appearance: positive: No acute distress, Alert, Other (Dishelved, wearing long m[place]o and three shirts) Eyes Bilateral: positive: Other (+corrective lenses ; +left exotropia) ENT: positive: No signs of dehydration Neck: positive: Trachea midline Cardiovascular: positive: Regular rate & rhythm Respiratory: positive: No respiratory distress, Breath sounds nml. negative: Rales Abdomen: positive: Non-tender, Soft, Nml bowel sounds, Other (+round). negative: Guarding Skin: positive: Dryness (generalized due to lack of bathing), Other (+elongated toenails) Extremities: positive: Pedal edema (trace BLE edema) Neurologic/Psychiatric: positive: Disoriented to place, Disoriented to time, Other (fluent in speech with tangential thinking) Palliative Care - POLST Patient has POLST: Yes POLST Status: DNR, Comfort Measures Pain: No pain - Palliative Care Discussion: Patient continues to have behavioral disturbances related to his underlying Alzheimer's dementia specifically verbal outbursts, agitation, delusions, wandering and insomnia. He has failed with Depakote as well as Zyprexa. He is had been hit or miss with his quetiapine and his spouse was giving a reduced dose of Haldol during the day. Today, reviewed with the patient's spouse prescribed dosage of Haldol and had the perform teach back with drawling of the liquid Haldol x3 with appropriate and level. Given the patient has continued displays of outbursts will trial follow-up uric acid and liquid formation 125 mg in the evening for agitation. The patient's spouse continues to present with significant caregiver fatigue. Unfortunately, the patient's granddaughter, Luna will be relocating out of state which is going to be further reduction in support for the patient's spouse and caregiving duties. As the patient has been rejected by [facility] for long-term care placement for a memory care facility unclear additional measures that may be used provided outside of medical interventions. The patient is slow in further signs of progression of his Alzheimer's dementia specifically with increased urinary incontinence. Impression and Recommendations - Palliative Care Impression: This is a 75-year-old gentleman with progressive Alzheimer's dementia with hallucinations, delusions, behavioral disturbances with agitation and wandering behaviors continue Horacio not controlled. Will initiate Valporic acid 125 mg liquid in the evening for agitation as the patient would not allow for administration of Depakote. Demonstrating increased progression of Alzheimer's dementia at F AST 6D and increased falls. The ultimate goal is to optimize the patient's comfort and provide safety for himself as well as his spouse. Palliative care will continue to provide support for symptom management, care coordination and anticipatory guidance. Recommendations/Counseling Done: 1. Alzheimer's dementia with behavioral disturbances. Chronic. Progressive. Fall precautions. Patient continues to have outbursts of agitation and wandering behaviors. Police were called this morning. Zyprexa had a paradoxical response and was discontinued. Patient would not adhere to administration of Depakote and therefore will discontinue this. Remains off citalopram. Continue quetiapine 75 mg 3 times daily (quetiapine 50 mg and quetiapine 25 mg tablets. Continue Haldol to 2 mg 3 times daily. Continue Haldol 1 mg daily as needed for acute anxiety and agitation. Initiate valproic acid (250mg/5mL) administer 125mg (2.5mL) nightly for outbursts and agitation with mood stabilization. Rx sent to [facility] per family request. Would benefit from snf care placement. Family has applied for [facility] and was denied and unclear next steps for support. Supportive listening provided. 2. Insomnia. Wake/sleep cycle altered. Discussed activities to have the patient preform during the day to encourage alertness to then sleep at night. see Dx. Alzheimer's dementia for further details. 3.Constipation. Unclear if the patient is having routine bowel movements given his resistance to others to monitor as well as his self-neglect. Bowel sounds are positive x4 quadrants and abdomen is soft and nondistended. Recommend initiation of MiraLAX half a cap daily in the afternoon dissolved in 6 ounces of liquid for prevention of constipation and this was re-reviewed today. 4. Elongated toenails. Patient demonstrates self neglect. Made recom mendation to [facility] lamination operator, Dr. Iglesias for to follow-up for toenail trimming as no available, in home service on the [place]. 5. Caregiver burden. The patient spouse is the primary caregiver despite having occasional caregiving assistance with paid caregivers privately she continues to demonstrate continued signs and symptoms of burnout. The patient's daughter and granddaughter provide additional support and assistance to the patient's spouse. Supportive listening provided. Continue to be followed and supported by the palliative care volunteer. 5.Advance care planning. Patient has POLST in place as DN AR with comfort measures. Patient's family wishes to focus more and comfort and for the patient to be safe within his home environment. Patient would benefit from a memory care facility and encouraged the family to continue to work with [facility] regarding placement. Supportive and empathetic listening provided to the patient's family. Total time spent 40 minutes with greater than 50% of this spent in counseling and coordination of care with spouse, daughter and granddaughter; review of medication administration and teach back; examination of patient; review of symptom management and anticipatory guidance. Disclaimer: The chart note was formulated using voice recognition technology and unfortunately sound alike errors may occur.
== END 2021-06-08 09:46 | disposition home or self-care (01) ==
LOC: PC 09:45
PROVIDERS: ATTEND Nurse Practitioner Family
DX: Z51.5 Encounter for palliative care (principal); G30.9 Alzheimer's disease, unspecified; F02.81 Dementia in other diseases classified elsewhere, unspecified severity, with behavioral disturbance; Z91.83 Wandering in diseases classified elsewhere; G47.01 Insomnia due to medical condition; K59.00 Constipation, unspecified; Z74.1 Need for assistance with personal care; Z66 Do not resuscitate
CPT/HCPCS: 99349

== ENCOUNTER 2021-06-22 16:55 | Outpatient (CLI) | payer MEDICARE ==
--- NOTE | 2021-06-22 17:28 | CONSULTATION NOTE ---
Palliative Care Follow Up - Referral Referring Provider: JANKI Martinez Time of Visit: Intiated 1655 Referral setting: Assisted living Referral Reason: Dementia with behavior disturbances - Information Sources Records reviewed: Previous records reviewed History/Review of Systems obtained from: Caregiver, Nursing Exam limitations: Clinical condition (Advanced Dementia) - History of Present Illness Update Brief HPI Update: This is a 75-year-old gentleman who was seen in follow-up today due to Alzheimer's dementia with behavioral disturbances presently at a [facility]ite [facility] assisted living. The patient was diagnosed with Alzheimer's dementia in 2016. No reversible causes were identified with routine work-up. The patient has had progressive dementia with behavioral disturbances that has been difficult to control. The patient had increasing behaviors within the home that resulted in an emergency department visit on 05/09 that required IM injection of Zyprexa and unfortunately, the patient was then discharged back home with continued behaviors. When 05/27 the patient ran medication and again presented to the emergency department with significant behaviors that resulted in IM injection of Haldol. The patient has had difficulty with medication administration specifically when his spouse has been administering medication and has been unclear at times home much he had been receiving resulting in failed attempts per patient to reduce behavioral disturbances and make the patient more comfortable and safe in his home environment. The patient is presently on a 2-week respite stay at [facility] memory care and came to the facility on the evening of June 17. Discussion with nursing staff initially the first night the patient did not sleep and then the second day after admission began to calm down. He has been sleeping well at night. There has been no issues with the patient taking his medications and daily has not been disruptive towards other residents nor acting out with any signs or symptoms of aggression to facility staff. He is on meal monitoring and overall has done well with most meals consuming 50 to 100% of his meals. Unfortunately, he has refused to be weighed on multiple attempts. There had been 1 episode of increased urinary incontinence that resulted in the patient having his first shower in approximately 6 months and change of his entire attire. Overall, the patient appears to have adjusted well to his new environment for this interim stay. He is seen ambulatory in the [facility] area with a shape Horacio shuffling gait and no evidence of acute distress. Past Medical History: Patient has a past medical history of hyperlipidemia, shortness of breath on exertion, Alzheimer's dementia, GERD, incontinence, macular degeneration, strabismus, anxiety, chronic back pain, remote h/o alcohol abuse. Social History - Living Situation Living arrangement: At home Living Situation: With spouse/s.o. Support System: The patient and his present have been for 49 years. The patient was previously and has 1 daughter from that relationship who is estranged. He and his present , Duyen, have 1 son together. He has 1 stepdaughter and 2 stepsons from his . His stepdaughter, Nicki is very involved in assisting the patient and his with caregiving is the patient's DPOA with contact number [phone] as well as his granddaughter, Ally. the patient's granddaughter is going to be relocating out of state. Palliative Care volunteer Chandana is providing support. They have applied for [facility] support however were "rejected" due to a prior property per daughter's report. The patient's family pulled funds together for the patient to have a two week resp[facility] stay at [facility] for the patient's spouse while their daughter is out of town. Medications/Allergies - Medications Home Medications: Ambulatory Orders Medication Instructions Recorded Confirmed QUEtiapine [SEROquel] 75 mg PO TID 02/23/21 06/08/21 Haloperidol Oral Soln [Haldol Oral 1 mg PO DAILY PRN 05/16/21 06/08/21 Soln] Haloperidol Oral Soln [Haldol Oral 2 mg PO TID 05/22/21 06/08/21 Soln] polyethylene glycoL 3350 [Miralax] 0.5 cap PO DAILY 05/30/21 06/08/21 traZODone [Desyrel] 1 tab PO QPM PRN 05/30/21 06/08/21 Valproic Acid (As Sodium Salt) 125 mg PO QPM 06/08/21 06/08/21 [Valproic Acid] - Allergies Allergies/Adverse Reactions: Allergies Allergy/AdvReac Type Severity Reaction Status Date / Time No Known Drug Allergies Allergy Verified 05/27/21 10:12 Review of Systems - Constitutional Constitutional: denies: Fever, Poor appetite (has improved with more diversified foods) - Eyes Eyes: reports: Corrective lenses - Ears, Nose & Throat Ears, Nose & Throat: reports: Hearing loss. denies: Hearing aids - Cardiovascular Cardiovascular: reports: Edema (intermittent noted to feet). denies: Chest pain - Respiratory Respiratory: denies: Cough - Gastrointestinal Gastrointestinal: reports: Good appetite (on meal monitoring). denies: Constipation (has been taking miralax with defecation 06/21 and 06/22 noted), Vomiting - Genitourinary Genitourinary: reports: Incontinence. denies: Dysuria - Musculoskeletal Musculoskeletal: denies: Assistive devices - Integumentary Integumentary: reports: Dryness, Other (Long toenails) - Neurological Neurological: reports: Memory problems - Psychiatric Psychiatric: reports: Anxiety, Hallucinations (increased hallucinations and delusions reported by family), Aggitation, Behavior disturbances - Endocrine Endocrine: denies: Diabetes type 2 - All Other Systems All Other Systems: reports: Reviewed and negative (Review of systems supplemented by the caregivers and JAIL KEEPER Ila rincon is a poor historian due to dementia.) Physical Exam - Vital Signs Temperature: 36.4 C Pulse Rate: 72 O2 Saturation: 72 Blood Pressure: 135/79 - Physical Exam General Appearance: positive: No acute distress, Alert, Other (in appropriate attire and clothes this REHABILITATION PROGRAM COORDINATOR has not seen before as the patient frequently will not change) Eyes Bilateral: positive: Other (not wearing his glasses today; +left exotropia) ENT: positive: No signs of dehydration Neck: positive: Trachea midline Cardiovascular: positive: Regular rate & rhythm Respiratory: positive: No respiratory distress, Breath sounds nml Abdomen: positive: Non-tender, Soft, Nml bowel sounds, Other (+round) Skin: negative: Dryness (improved to lower extremities with recent bathing) Extremities: positive: No pedal edema Neurologic/Psychiatric: positive: Disoriented to place, Disoriented to time, Other (fluent in speech with tangential thinking) Palliative Care - POLST Patient has POLST: Yes POLST Status: DNR, Comfort Measures Pain: No pain Performance Status: FAST 6D - Palliative Care Discussion: Patient has had difficult to control behavioral disturbances related to his underlying Alzheimer's dementia specifically verbal outbursts, agitation, delusions, wandering and insomnia. He is presently on a 2-week respite stay at home [facility] memory care and has done remarkably well. There have not been any altercations between other residents or staff. The patient has overall been cooperative. He has been taking his medications routinely with out resistance and this is allowing for monitoring for future dose titration and symptom management to optimize the patient's comfort level. He has been tolerating introduction of valve. Acid 125 mg in the evening. The patient's spouse is benefiting from this respite stay as she has been experiencing significant caregiver fatigue and burden. Ultimately, this respite is highlighting the patient is most appropriate to remain in a memory care setting however, without the financial assistance which is not being supported through [facility] due to complications it is unlikely the patient will be able to stay in this environment. Impression and Recommendations - Palliative Care Impression: This is a 75-year-old gentleman with progressive Alzheimer's dementia with hallucinations, delusions, behavioral disturbances with agitation and wandering behaviors with improved control in facility setting. He has tolerated initiation of valproic acid in the evening. The ultimate goal remains to optimi ze the patient's comfort and provide safety for himself and his spouse. Palliative care will continue to provide support for symptom management, care coordination and anticipatory guidance. Recommendations/Counseling Done: 1. Alzheimer's dementia with behavioral disturbances. Chronic. Progressive. Fall precautions. Patient had a paradoxical response to Zyprexa and was discontinued. Patient would not hear to administration of Depakote and therefore this was also discontinued. No longer on citalopram. In facility environment he has been in amicable to taking his medications without any resistance and symptoms appear to be well controlled. Continue quetiapine 75 mg 3 times daily. Continue Haldol 2 mg 3 times daily. Continue valproic acid suspension 125 mg nightly. Ultimately, this respite stay is demonstrating that the patient would ultimately benefit from a memory care placement. However, family has applied for [facility] and was denied and unclear what next steps would be available financially. Supportive provided. 2. Insomnia. Presently sleeping well at the facility with no concerns reported by facility staff. This is likely as the patient is adhering to medication administration and improved symptom management. 3. Constipation. Now the patient is in a more controlled environment staff are able to monitor bowel movements. He has had 2 bowel movements since admission. Continue MiraLAX 8.5 g daily and hold for loose stools. 4. Caregiver burden. Continue to rate main concern regarding the patient's spouse who is the patient's primary caregiver who is occasionally receiving assistance from paid caregivers as well as from the patient's daughter. Supportive listening provided to the patient spouse today and encouraged to take this respite time to focus on self-care. The patient's spouse's sister is presently visiting and encouraged to enjoy at this time with family and to allow the patient to be well cared for at the facility environment. Supportive listening provided to the patient's spouse. CPT 67763 Contacted the patient's spouse, Duyen and updated regarding findings at facility and most appreciative of update. No changes in plan of care at the present time with questions answered and addressed. Discussed plan of care with the facility JAIL KEEPER with questions answered and addressed regarding patient's demeanor and behavior in the home environment. Disclaimer: The chart note was formulated using voice recognition technology and unfortunately sound alike errors may occur.
== END 2021-06-22 16:56 | disposition home or self-care (01) ==
LOC: PC 16:55
PROVIDERS: ATTEND Nurse Practitioner Family
DX: Z51.5 Encounter for palliative care (principal); G30.9 Alzheimer's disease, unspecified; F02.81 Dementia in other diseases classified elsewhere, unspecified severity, with behavioral disturbance; E78.5 Hyperlipidemia, unspecified; R06.02 Shortness of breath; K21.9 Gastro-esophageal reflux disease without esophagitis; H35.30 Unspecified macular degeneration; H50.9 Unspecified strabismus; F41.9 Anxiety disorder, unspecified; G89.29 Other chronic pain; M54.9 Dorsalgia, unspecified; F10.11 Alcohol abuse, in remission; H91.90 Unspecified hearing loss, unspecified ear; R32 Unspecified urinary incontinence; E11.9 Type 2 diabetes mellitus without complications; Z66 Do not resuscitate; G47.00 Insomnia, unspecified; K59.00 Constipation, unspecified

== ENCOUNTER 2021-07-24 16:00 | Outpatient (CLI) | payer MEDICARE ==
--- NOTE | 2021-07-24 19:23 | CONSULTATION NOTE ---
Palliative Care Follow Up - Referral Referring Provider: JANKI Martinez Time of Visit: [id number] Referral setting: Home Referral Reason: Dementia with behavior - Information Sources Records reviewed: Previous records reviewed History/Review of Systems obtained from: Family (daughter/DPOA Nicki, Duyen, sister in law) Exam limitations: Clinical condition (Advanced Dementia) - History of Present Illness Update Brief HPI Update: This is a 75-year-old gentleman who was seen in follow-up today due to Alzheimer 's dementia with behavioral disturbances within his home environment with daughter Nicki, Duyen and [id number]-[id number]-hab present Provider wearing N95 mask. Patient was diagnosed with Alzheimer's dementia in 2017. No reversible causes were identified with routine work-up. The patient has had progressive dementia with behavioral disturbances that has been difficult to control. The patient has had increasing behaviors within the home that resulted in an emergency department visit on 05/09 with IM injection of Zyprexa and unfortunately the patient was just back home with continued behaviors. Different is in medications have been trialed for management of behaviors including Zyprexa, Depakote, and patient is presently on quetiapine, Haldol, and Velp uric acid. When previously trialed on Depakote there was no noted effect on the patient's and difficulty with administration within the home and therefore was discontinued. However, inadvertently the patient was given a dose of Depakote 125 mg on Saturday per daughter's report and resulted in increased sedation for approximately 24 hours. And patient subsequently has returned to baseline. Also, the family has run out of Haldol and the patient has been without this "for several days" and have noted increased outbursts and escalations of behavior. It has been difficult for medication administration as the patient spouse is typically administering the medication and the patient tolerates administration from his daughter more at ease. The patient had a 2-week respite stay at [facility] in June 2021 to provide the spouse some reprieve. During this time the spouse's sister was visiting and has subsequently returned. In that time. She has noticed further decline in the patient's over all health and demeanor. Increased outbursts, decreased oral intake and he is now incontinent of bladder and increasing incontinence with stool. With his urinary incontinence it is difficult to have him a lateral his depends to be changed. He has had approximately 3 showers since returning home and previously it was months before he would allow any bathing due to resistance. He does have a podiatry appointment pending this month. The patient was initially seen at the dining room table of lining up a tree and set that his [id number] provided him. Then he was ambulatory in the home with a shuffling gait without assistive device and displaying tangential thinking. Past Medical History: Patient has a past medical history of hyperlipidemia, shortness of breath on exertion, Alzheimer's dementia, GERD, incontinence, macular degeneration, strabismus, anxiety, chronic back pain, remote h/o alcohol abuse. Social History - Living Situation Living arrangement: At home Living Situation: With spouse/s.o. Support System: The patient and his present have been for 49 years. The patient was previously and has 1 daughter from that relationship who is estranged. He and his present , Duyen, have 1 son together. He has 1 stepdaughter and 2 stepsons from his . His stepdaughter, Nicki is very involved in assisting the patient and his with caregiving is the patient's DPOA with contact number [phone] as well as his granddaughter, Ally. the patient's granddaughter is going to be relocating out of state. Palliative Care volunteer Chandana is providing support. They have applied for [facility] support however were "rejected" due to a prior property per daughter's report. APS has requested locks for cabinets and are pending. The patient's family pulled funds together for the patient to have a two week respite stay at Home [facility] for the patient's spouse while their daughter is out of town in June 2021. Family is looking at gathering funds to pay for present caregiver to come for 4 hours two days a week. Patient is a and was denied options per spouse. Medications/Allergies - Medications Home Medications: Ambulatory Orders Medication Instructions Recorded Confirmed QUEtiapine [SEROquel] 75 mg PO TID 02/23/21 06/08/21 Haloperidol Oral Soln [Haldol Oral 1 mg PO DAILY PRN 05/16/21 06/08/21 Soln] Haloperidol Oral Soln [Haldol Oral 2 mg PO TID 05/22/21 06/08/21 Soln] polyethylene glycoL 3350 [Miralax] 0.5 cap PO DAILY 05/30/21 06/08/21 traZODone [Desyrel] 1 tab PO QPM PRN 05/30/21 06/08/21 Valproic Acid (As Sodium Salt) 125 mg PO BID 06/08/21 06/08/21 [Valproic Acid] - Allergies Allergies/Adverse Reactions: Allergies Allergy/AdvReac Type Severity Reaction Status Date / Time No Known Drug Allergies Allergy Verified 05/27/21 10:12 Review of Systems - Constitutional Constitutional: reports: Weight loss (visible). denies: Fever, Poor appetite (is consuming his meals and no longr with a diet that consists of grilled jelly sandwiches) - Eyes Eyes: reports: Corrective lenses - Ears, Nose & Throat Ears, Nose & Throat: reports: Hearing loss, Dentures (not putting one of his dentures in). denies: Hearing aids - Cardiovascular Cardiovascular: reports: Edema (intermittent noted to feet). denies: Chest pain - Respiratory Respiratory: denies: Cough, Other (No dysphagia noted during meals) - Gastrointestinal Gastrointestinal: denies: Constipation (improved with miralx), Vomiting - Genitourinary Genitourinary: reports: Incontinence. denies: Dysuria - Musculoskeletal Musculoskeletal: denies: Assistive devices - Integumentary Integumentary: reports: Dryness, Other (Long toenails) - Neurological Neurological: reports: Memory problems - Psychiatric Psychiatric: reports: Anxiety, Hallucinations (will see people in the rodriguez), Aggitation, Behavior disturbances - All Other Systems All Other Systems: reports: Reviewed and negative (Review of systems supplemented by daughter, and JERRY as patient is a poor historian due to dem entia.) Physical Exam - Vital Signs Temperature: 36.5 C Pulse Rate: 92 Blood Pressure: 136/84 - Physical Exam General Appearance: positive: No acute distress, Alert, Other (appears he has visibly lost weight in face since last evaluation noted visibly) Eyes Bilateral: positive: Other (not wearing his glasses as he broke his glasses; +left exotropia) ENT: positive: No signs of dehydration Neck: positive: Trachea midline Cardiovascular: positive: Regular rate & rhythm Respiratory: positive: No respiratory distress, Breath sounds nml. negative: Rales Abdomen: positive: Non-tender, Soft, Nml bowel sounds, Other (+round). negative: Guarding Skin: positive: Dryness (generalized) Extremities: positive: No pedal edema Neurologic/Psychiatric: positive: Disoriented to place, Disoriented to time, Other (fluent in speech with tangential thinking) Palliative Care - POLST Patient has POLST: Yes POLST Status: DNR, Comfort Measures Pain: No pain Performance Status: Remains ambulatory but slowing down. Now with urinary incontinence. Intermittent bowel incontinence. F AST 6D - Palliative Care Discussion: Patient continues to have difficult to control behavioral disturbances since he is returned back to his home environment after a 2-week respite stay at [facility] assisted living. Since returning home, he has no longer had wandering leaving the home and this is likely due to his recent respite stay.He has been without his Haldol for several days and new Rx sent to [facility] to resume 2 mg 3 times daily to improve behavioral response and for comfort. Given the patient's continued outbursts specifically now that he has returned home we will increase valproic acid to 125 mg twice daily. Continues to be difficult with medication administration within the home as he is and not always cooperative with taking his medications routinely with his spouse. The patient spouse continues to present with caregiver fatigue and burden. Unfortunately, circumstances are not allowing for additional assistance from [facility] per the family report. Given continued concerns regarding caregiving will make a request for palliative care oncology social worker to intervene for any additional support that may be provided. However, patient's family has been in contact with [facility] [place] [facility] in spring 2020 and relayed options at that time. Impression and Recommendations - Palliative Care Impression: This is a 75-year-old gentleman with progressive Alzheimer's dementia with hallucinations, delusions, behavioral disturbances with agitation that would benefit from further dose increase of that uric acid to twice daily dosing. The ultimate goal remains to optimize the patient's comfort and provide safety for himself and his spouse within the home environment. He is now presenting with urinary incontinence and resistant to pericare for the spouse but tolerates for the daughter. Spouse continues to present with high caregiver burden and at risk for burnout. Palliative care will continue provide support for symptom management, care coordination and anticipatory guidance with transition to hospice when medically appropriate. Recommendations/Counseling Done: 1. Alzheimer's dementia with behavioral disturbances. Chronic. Progressive. Fall precautions. Patient had a paradoxical response to diet proximal and was discontinued. Patient could not tolerate administration of Depakote and this was discontinued. No longer on citalopram. Continue quetiapine 75 mg 3 times daily. Resume Haldol 2 mg 3 times daily with new Rx sent to [facility]. Increase valproic acid suspension to 125 mg twice daily. Patient recently had a 2-week respite stay in June 2021 in a memory care unit. Patient would also ultimately benefit from a memory care placement however, family has applied for [facility] and this was denied. Support of listening provided. 2. Urinary incontinence. Due to progression of Alzheimer's dementia. Given difficulty in patient allowance of pericare recommendation made to use poise pads overnight on top of depends to limit frequency of changing due to resistance of care. Advised incontinent supplies available from [facility] and to follow-up with [facility] recommended. 3. Caregiver burden. Patient spouse continues to remain main as primary caregiver receiving assistance from the patient's daughter as well as an intermittent paid caregiver. Patient's [id number] to follow-up with [facility] again asking in regards to programs that the patient would qualify for. Has had reevaluation by [facility] however, due to recent exchange of property in the last 5 years this is resulted in denial poor family report for assistance. Patient spouse remains high risk for caregiver burnout. Continue to encourage allowance of leaving the home when palliative care volunteer is present. Supportive listening provided. 4.Advance care planning. Patient has POLST in place as DN AR with comfort measures. Patient's family wishes to focus on comfort ultimately with transitioning to a facility if at all possible for caregiving assistance please see caregiver burden diagnosis for further details. Although patient prevent this with continued decline due to Alzheimer's dementia he does not presently meet criteria for hospice admission and hospice criteria was removed reviewed with all parties today with questions answered and addressed. Total time spent 55 minutes with greater than 50% of the spent in counseling and coordination of care with the daughter, [id number], and spouse; examination of the patient; review of pain and symptom management; review of hospice criteria; review of resources; and anticipatory guidance. Disclaimer: The chart note was formulated using voice recognition technology and unfortunately sound alike errors may occur.
== END 2021-07-24 16:01 | disposition home or self-care (01) ==
LOC: PC 16:00
PROVIDERS: ATTEND Nurse Practitioner Family
DX: Z51.5 Encounter for palliative care (principal); G30.9 Alzheimer's disease, unspecified; F02.81 Dementia in other diseases classified elsewhere, unspecified severity, with behavioral disturbance; F05 Delirium due to known physiological condition; R32 Unspecified urinary incontinence; R15.9 Full incontinence of feces; H35.30 Unspecified macular degeneration; H50.9 Unspecified strabismus; F41.9 Anxiety disorder, unspecified; G89.29 Other chronic pain; M54.9 Dorsalgia, unspecified; F10.11 Alcohol abuse, in remission; H91.90 Unspecified hearing loss, unspecified ear; Z66 Do not resuscitate; Z91.81 History of falling
CPT/HCPCS: 99349

== ENCOUNTER 2021-08-03 05:31 | Outpatient (CLI) | payer MEDICARE | END 2021-08-03 05:32 | disposition EMS.NT | LOC: EMS 05:31 | DX: Z03.89 Encounter for observation for other suspected diseases and conditions ruled out (principal) ==

== ENCOUNTER 2021-08-03 09:39 | Outpatient (CLI) | payer MEDICARE | END 2021-08-03 09:40 | disposition critical access hospital (66) | LOC: EMS 09:39 | DX: R50.9 Fever, unspecified (principal); R53.1 Weakness; R40.4 Transient alteration of awareness | CPT/HCPCS: A0425; A0429 ==

== ENCOUNTER 2021-08-03 10:04 | Inpatient (IN) | payer MEDICARE ==
--- NOTE | 2021-08-03 10:52 | ED Physician Documentation ---
PD HPI ALTERED MENTAL STATUS - Stated complaint Stated Complaint: FEVER/AMS - Chief complaint Chief Complaint: General - History obtained from History obtained from: Patient - History of Present Illness Timing - onset: How many days ago (2-3) Timing - duration: Days (2-3) Timing - details: Gradual onset, Still present Quality / character: Less responsive, Other (general weakness) Associated symptoms: Fever, Other (some abd pains at times.). No: Headache, Cough Contributing factors: No: Anticoagulated Basline status: Ambulatory, Disoriented Similar symptoms before: Has not had sx before Recently seen: Not recently seen Review of Systems Constitutional: reports: Fever Nose: denies: Rhinorrhea / runny nose, Congestion Throat: denies: Sore throat Cardiac: denies: Chest pain / pressure Respiratory: denies: Cough GI: reports: Abdominal Pain, Constipation. denies: Vomiting, Diarrhea : reports: Incontinent. denies: Dysuria Skin: denies: Rash Neurologic: reports: Generalized weakness (for 2-3 days). denies: Focal weakness, Numbness, Headache Endocrine: denies: Weight loss Immunocompromised: denies: Immunocompromised PD PAST MEDICAL HISTORY - Past Medical History Cardiovascular: High cholesterol Respiratory: Shortness of breath (on exertion, pulse ox 98% today with ambulation 02/02/2021) Endocrine/Autoimmune: None GI: GERD : Incontinence Psych: Anxiety Musculoskeletal: Chronic back pain Derm: None - Past Surgical History Past Surgical History: Yes General: Appendectomy HEENT: Other (several strabismus surgeries as a child) - Present Medications Home Medications: Ambulatory Orders Medication Instructions Recorded Confirmed QUEtiapine [SEROquel] 75 mg PO TID 02/23/21 08/03/21 Haloperidol Oral Soln [Haldol Oral 1 mg PO DAILY PRN 05/16/21 08/03/21 Soln] Haloperidol Oral Soln [Haldol Oral 2 mg PO TID 05/22/21 08/03/21 Soln] polyethylene glycoL 3350 [Miralax] 0.5 cap PO DAILY 05/30/21 08/03/21 Valproic Acid (As Sodium Salt) 125 mg PO BID 06/08/21 08/03/21 [Valproic Acid] - Allergies Allergies/Adverse Reactions: Allergies Allergy/AdvReac Type Severity Reaction Status Date / Time No Known Drug Allergies Allergy Verified 05/27/21 10:12 - Social History Does the pt smoke?: No Smoking Status: Never smoker Does the pt drink ETOH?: No Does the pt have substance abuse?: No - POLST Patient has POLST: Yes PD ED PE NORMAL - Vitals Vital signs reviewed: Yes - General General: No acute distress, Well developed/nourished. No: Alert and oriented X 3 (rouses to verbal or tactile; able to answer questions.) - HEENT HEENT: Pharynx benign - Neck Neck: Supple, no meningeal sign, No adenopathy - Cardiac Cardiac: RRR, No murmur - Respiratory Respiratory: Clear bilaterally - Abdomen Abdomen: Normal bowel sounds, Soft, Non distended, No organomegaly, Other (some tenderness mid to lower abd without guarding nor percussion tenderness. ) - Male Male : Other (normal genitalia.) - Rectal Rectal: Other (soft stool in vault, brown and does not appear melanotic. ) - Back Back: No CVA TTP - Derm Derm: Normal color, Warm and dry, No rash, Other (perirectal area without redness nor rash. ) - Neuro Neuro: No motor deficit, Normal speech. No: Alert and oriented X 3 (to person and place. ) Eye Opening: To Voice Motor: Obeys Commands Verbal: Confused GCS Score: 13 Results - Vitals Vitals: Vital Signs - 24 hr 08/03/21 08/03/21 08/03/21 10:06 12:42 13:56 Temperature 38.3 C H Heart Rate 90 88 85 Respiratory 18 19 17 Rate Blood Pressure 117/85 H 128/71 121/69 O2 Saturation 97 99 97 Oxygen O2 Source Room air - Labs Labs: Laboratory Tests 08/03/21 08/03/21 08/03/21 11:30 11:30 11:41 WBC 12.1 H RBC 5.43 Hgb 14.3 Hct 45.4 MCV 83.6 MCH 26.3 L MCHC 31.5 L RDW 13.9 Plt Count 252 MPV 9.6 Neut # (Auto) 10.0 H Lymph # (Auto) 1.1 L K[place] # (Auto) 1.0 Eos # (Auto) 0.0 Baso # (Auto) 0.0 Absolute Nucleated RBC 0.00 Nucleated RBC % 0.0 Sodium Potassium Chloride Carbon Dioxide Anion Gap BUN Creatinine Estimated GFR (MDRD) Glucose Lactic Acid Calcium Total Bilirubin AST ALT Alkaline Phosphatase B-Natriuretic Peptide Total Protein Albumin Globulin Albumin/Globulin Ratio Urine Color YELLOW Urine Clarity CLEAR Urine pH 6.5 Ur Specific [place] 1.015 Urine Protein NEGATIVE Urine Glucose (UA) NEGATIVE Urine Ketones 40 H Urine Occult Blood SMALL H Urine Nitrite NEGATIVE Urine Bilirubin NEGATIVE Urine Urobilinogen 0.2 (NORMAL) Ur Leukocyte Esterase TRACE H Urine RBC 6-10 H Urine WBC 6-10 H Ur Squamous Epith Cells FEW Squamous Urine Bacteria Few Urine Mucus Few Strands Urine Culture Comments INDICATED Nasal Adenovirus (PCR) NOT DETECTED Nasal B. parapertussis DNA (PCR) NOT DETECTED Nasal Coronavir 229E PCR NOT DETECTED Nasal Coronavir HKU1 PCR NOT DETECTED Nasal Coronavir NL63 PCR NOT DETECTED Nasal Coronavir OC43 PCR NOT DETECTED Nasal Enterovir/Rhinovir PCR NOT DETECTED Nasal Influenza B PCR NOT DETECTED Nasal Influenza A PCR NOT DETECTED Nasal Parainfluen 1 PCR NOT DETECTED Nasal Parainfluen 2 PCR NOT DETECTED Nasal Parainfluen 3 PCR NOT DETECTED Nasal Parainfluen 4 PCR NOT DETECTED Nasal RSV (PCR) NOT DETECTED Nasal B.pertussis DNA PCR NOT DETECTED Nasal C.pneumoniae (PCR) NOT DETECTED Steve Human Metapneumo PCR NOT DETECTED Nasal M.pneumoniae (PCR) NOT DETECTED Nasal SARS-CoV-2 (PCR) NOT DETECTED 08/03/21 08/03/21 08/03/21 11:41 11:41 11:41 WBC RBC Hgb Hct MCV MCH MCHC RDW Plt Count MPV Neut # (Auto) Lymph # (Auto) [place] # (Auto) Eos # (Auto) Baso # (Auto) Absolute Nucleated RBC Nucleated RBC % Sodium 140 Potassium 4.0 Chloride 100 L Carbon Dioxide 29 Anion Gap 11.0 BUN 19 Creatinine 0.9 Estimated GFR (MDRD) 82 L Glucose 113 H Lactic Acid 1.3 Calcium 9.4 Total Bilirubin 1.5 H AST 40 ALT 24 Alkaline Phosphatase 60 B-Natriuretic Peptide 91 Total Protein 7.7 Albumin 4.0 Globulin 3.7 Albumin/Globulin Ratio 1.1 Urine Color Urine Clarity Urine pH Ur Specific [place] Urine Protein Urine Glucose (UA) Urine Ketones Urine Occult Blood Urine Nitrite Urine Bilirubin Urine Urobilinogen Ur Leukocyte Esterase Urine RBC Urine WBC Ur Squamous Epith Cells Urine Bacteria Urine Mucus Urine Culture Comments Nasal Adenovirus (PCR) Nasal B. parapertussis DNA (PCR) Nasal Coronavir 229E PCR Nasal Coronavir HKU1 PCR Nasal Coronavir NL63 PCR Nasal Coronavir OC43 PCR Nasal Enterovir/Rhinovir PCR Nasal Influenza B PCR Nasal Influenza A PCR Nasal Parainfluen 1 PCR Nasal Parainfluen 2 PCR Nasal Parainfluen 3 PCR Nasal Parainfluen 4 PCR Nasal RSV (PCR) Nasal B.pertussis DNA PCR Nasal C.pneumoniae (PCR) Steve Human Metapneumo PCR Nasal M.pneumoniae (PCR) Nasal SARS-CoV-2 (PCR) - Rads (name of study) chest xray Radiology: Prelim report reviewed (no infiltrates), See rad report abd/pelvic CT Radiology: Prelim report reviewed (copious stool; no acute infectious process. ), See rad report PD MEDICAL DECISION MAKING - ED course Complexity details: reviewed results (The patient does not appear septic per se. He did have a fever here and general weakness. Only findings of apparent are urinary tract infection. He is unable to get up on his own and required help even rolling in bed.), considered differential (Fever for the last couple of days and general weakness. Usually ambulatory but unable to get out of bed the last 2 days. No focal weakness. Some incontinence of urine.), d/w patient, d/w family (I talked with his by phone. ), other (Due to the degree of weakness from the current process, feel the patient needs hospitalization and will talk with the hospitalist service.) Departure - Departure Disposition: 66 [facility] DC/Xfer Clinical Impression: Generalized weakness UTI (urinary tract infection) Qualifiers: Urinary tract infection type: acute cystitis Hematuria presence: without hematuria Qualified Code(s): N30.00 - Acute cystitis without hematuria Fever Qualifiers: Fever type: unspecified Qualified Code(s): R50.9 - Fever, unspecified Constipation Qualifiers: Constipation type: unspecified constipation type Qualified Code(s): K59.00 - Constipation, unspecified Condition: Stable Record reviewed to determine appropriate education?: Yes
[2021-08-03] MEDS ORDERED: ACETAMINOPHEN 325 MG TABLET PO STA (11:11)
--- NOTE | 2021-08-03 11:33 | XRAY Report ---
PROCEDURE: Chest 1 View X-Ray INDICATIONS: chest pain TECHNIQUE: One view of the chest was acquired. COMPARISON: None FINDINGS: Surgical changes and devices: None. Lungs and pleura: No pleural effusions or pneumothorax. Lungs are clear. Mediastinum: Mediastinal contours appear normal. Heart size is normal. Bones and chest wall: No suspicious bony lesions. Overlying soft tissues appear unremarkable. IMPRESSION: No acute cardiopulmonary pathology. Reviewed by: River Austin MD on 08/03/2021 11:32 AM PDT Approved by: River Austin MD on 08/03/2021 11:32 AM PDT Station ID: [id number]
[2021-08-03 11:53] LABS: BASOPHILS % (AUTO) 0.2 %; EOSINOPHILS % (AUTO) 0.2 %; HCT - HEMATOCRIT 45.4 % (42.0-52.0); HGB - HEMOGLOBIN 14.3 g/dL (14.0-18.0); LYMPHOCYTES # (AUTO) 1.1 10^3/uL (1.5-3.5); LYMPHOCYTES % (AUTO) 8.7 %; MEAN CORPUSCULAR HEMOGLOBIN 26.3 pg (27.0-31.0); MEAN CORPUSCULAR HGB CONC 31.5 g/dL (32.0-36.0); MEAN CORPUSCULAR VOLUME 83.6 fL (80.0-94.0); MEAN PLATELET VOLUME 9.6 fL (7.4-11.4); NEUTROPHILS % (AUTO) 82.6 %; PLT - PLATELET COUNT 252 10^3/uL (130-450); RED BLOOD COUNT 5.43 10^6/uL (4.70-6.10); RED CELL DISTRIBUTION WIDTH 13.9 % (12.0-15.0); WHITE BLOOD COUNT 12.1 x10^3/uL (4.8-10.8)
[2021-08-03 11:55] LABS: BILIRUBIN,URINE NEGATIVE (NEGATIVE); GLUCOSE, URINE (UA) NEGATIVE (NEGATIVE); KETONES,URINE (UA) 40 mg/dL (NEGATIVE); LEUKOCYTE ESTERASE, URINE TRACE (NEGATIVE); NITRITE,URINE NEGATIVE (NEGATIVE); OCCULT BLOOD,URINE SMALL (NEGATIVE); PH,URINE 6.5 PH (5.0-7.5); PROTEIN,URINE NEGATIVE (NEGATIVE); UROBILINOGEN,URINE 0.2 (NORMAL) E.U./dL (NORMAL)
[2021-08-03 12:01] LABS: ALBUMIN/GLOBULIN RATIO 1.1 (1.0-2.2); BILIRUBIN,TOTAL 1.5 mg/dL (0.2-1.0); CALCIUM 9.4 mg/dL (8.5-10.3); CREATININE 0.9 mg/dL (0.6-1.2); TOTAL PROTEIN 7.7 g/dL (6.7-8.2)
[2021-08-03 12:05] LABS: BACTERIA,URINE Few /HPF (None Seen); CLARITY,URINE CLEAR (CLEAR); MUCUS,URINE Few Strands; SQUAMOUS EPITHELIAL CELL,UR FEW Squamous (<= Few)
[2021-08-03] MEDS ORDERED: IOVERSOL 320 100 ML VIAL IVP ONE ×2 (12:21→13:25)
--- NOTE | 2021-08-03 12:51 | CT Report ---
PROCEDURE: Abdomen/Pelvis W INDICATIONS: fever, mid abd pain CONTRAST: IV CONTRAST: Optiray 320 ml: 100 PO CONTRAST: *NO PO CONTRAST TECHNIQUE: After the administration of intravenous contrast, 5 mm thick sections acquired from the diaphragms to the symphysis. 5 mm thick coronal and sagittal reformats were acquired. For radiation dose reducti on, the following was used: automated exposure control, adjustment of mA and/or kV according to ky ent size. COMPARISON: 12/07/2016 FINDINGS: Image quality: Excellent. ABDOMEN: Lung bases: Lung bases are clear. Heart size is normal. Solid organs: Liver and spleen are normal in size and enhancement. Multiple left lobe liver cysts a nd small right lobe liver cysts are again noted. Gallbladder is unremarkable. Biliary system is non dilated. Pancreas enhances normally. No adrenal nodules. Kidneys demonstrate normal size and enhan cement, without hydronephrosis. Peritoneum and bowel: Very large diffuse colonic fecal burden including large rectal fecal impaction. No free fluid or air. Mild diverticulosis without evidence of diverticulitis. Nodes and vessels: No retroperitoneal or mesenteric adenopathy by size criteria. Aorta and inferior vena cava are normal in size. Miscellaneous: No ventral hernias. PELVIS: Genitourinary: Bladder wall thickness is normal. Miscellaneous: Bilateral fat-containing inguinal hernias. No inguinal adenopathy. Bones: No suspicious bony lesions. No vertebral body compression fractures. IMPRESSION: Large rectal fecal impaction with very large diffuse fecal load. Reviewed by: Mike Talavera MD on 08/03/2021 12:49 PM PDT Approved by: Mike Talavera MD on 08/03/2021 12:49 PM PDT Station ID: [id number]
[2021-08-03 13:01] LABS: CORONAVIRUS 229E-RESP PCR NOT DETECTED; CORONAVIRUS HKU1-RESP PCR NOT DETECTED; CORONAVIRUS NL63-RESP PCR NOT DETECTED; CORONAVIRUS OC43-RESP PCR NOT DETECTED; HUMAN METAPNEUMOVIRUS NOT DETECTED; INFLUENZA A- RESP PCR PANEL NOT DETECTED; INFLUENZA B - RESP PCR PANEL NOT DETECTED; PARAINFLUENZA VIRUS 1 NOT DETECTED; PARAINFLUENZA VIRUS 2 NOT DETECTED; PARAINFLUENZA VIRUS 3 NOT DETECTED; PARAINFLUENZA VIRUS 4 NOT DETECTED; RHINOVIRUS/ENTEROVIRUS NOT DETECTED; SARS-CoV-2 -RESP PCR PANEL NOT DETECTED
[2021-08-03 13:02] LABS: B. PARAPERTUSSIS- RESP PCR PAN NOT DETECTED; B. PERTUSSIS- RESP PCR PANEL NOT DETECTED; C. PNEUMONIAE- RESP PCR PANEL NOT DETECTED; M. PNEUMONIAE- RESP PCR PANEL NOT DETECTED; RSV- RESP PCR PANEL NOT DETECTED
[2021-08-03] MEDS ORDERED: cefTRIAXone 1 GM VIAL IVP STA (13:22)
[2021-08-03] MEDS ORDERED: SODIUM CHLORIDE FLUSH 0.9% 10 ML SYRINGE IVP PRN (14:08)
[2021-08-03] MEDS ORDERED: ACETAMINOPHEN 325 MG TABLET PO PRN (14:08)
[2021-08-03] MEDS ORDERED: ONDANSETRON 4 MG/2 ML VIAL IVP PRN (14:08)
[2021-08-03] MEDS ORDERED: MAGNESIUM CITRATE 296 ML BOTTLE PO STA (14:18)
--- NOTE | 2021-08-03 14:19 | HISTORY & PHYSICAL EXAMINATION ---
Chief Complaint - Chief Complaint Chief Complaint: AMS History of Present Illness - Admitted From Admitted From:: medical floor - History Obtained From Records Reviewed: [facility] History obtained from: ER report, [facility] records Exam Limitations: Patient's confusion - History of Present Illness HPI Comment/Other: This is a teresa 75-year-old gentleman A past medical history Significantly with progressing severe Alzheimer's dementia with hallucinations and behavioral disturbances and underlying anxiety and agitation, urinary incontinence, Who present to ER for evaluation of decreased responsiveness. Pt is alert and con fused. He report "I know nothing." Per ER report, pt is Usually ambulatory but he was unable to get out of bed in the last 2 days. pt was reported to have fever at home. Chest x-ray show unremarkable. CT of the abdomen/pelvis show large fecal impaction with very large diffuse fecal load. CT of the head show no evidence of acute stroke, hemorrhage, or mass. Routine laboratory tests that show patient had elevated WBC 12.1. Urinalysis show pyuria indicated UTI. Patient is febrile with a temperature 38.3 at the ER, Otherwise patient is hemodynamic stable. ER provider talked with the patient , patient was already given Rocephin antibiotics in the ER. Patient had a recent PLOST Which state patient is DNR with focus on comfortable measure. History - Past Medical History Cardiovascular: reports: High cholesterol Respiratory: reports: Shortness of breath (on exertion, pulse ox 98% today with ambulation 02/02/2021) Neuro: reports: Alzhiemer's Endocrine/Autoimmune: reports: None GI: reports: GERD : reports: Incontinence Psych: reports: Anxiety Musculoskeletal: reports: Chronic back pain Derm: reports: None - Past Surgical History General: reports: Appendectomy HEENT: reports: Other (several strabismus surgeries as a child) - Family & Social History Family History: Mother: , Father: Family History Comment/Other: Patient is confused, he cannot provide his family history Living Situation: With spouse/s.o. Social History Notes: Patient is confused, he cannot provide his social history - Substance History Use: Uses substance without health or social issues: NONE (Remote history of tobacco abuse from high school to his late 40s when he quit. 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 He obtained a DUI and then entered alcoholic annoymous and stopped with no further alochol consumption in decades.) - POLST Patient has POLST: Yes Meds/Allgy - Home Medications Home Medications: Ambulatory Orders Medication Instructions Recorded Confirmed QUEtiapine [SEROquel] 75 mg PO TID 02/23/21 08/03/21 Haloperidol Oral Soln [Haldol Oral 1 mg PO Q6H PRN 05/16/21 08/03/21 Soln] Haloperidol Oral Soln [Haldol Oral 2 mg PO TID 05/22/21 08/03/21 Soln] polyethylene glycoL 3350 [Miralax] 0.5 cap PO DAILY 05/30/21 08/03/21 Valproic Acid (As Sodium Salt) 125 mg PO BID 06/08/21 08/03/21 [Valproic Acid] Tamsulosin [Flomax] 08/03/21 - Allergies Allergies/Adverse Reactions: Allergies Allergy/AdvReac Type Severity Reaction Status Date / Time No Known Drug Allergies Allergy Verified 05/27/21 10:12 Review of Systems - All Other Systems All Other Systems: reports: Other (Patient is confused, he could not answer ROS questions) Exam - Vital Signs Vital Signs: Vital Signs x48h Temp Pulse Resp BP Pulse Ox 08/03/21 13:56 85 17 121/69 97 08/03/21 12:42 88 19 128/71 99 08/03/21 10:06 38.3 C H 90 18 117/85 H 97 - Physical Exam General Appearance: positive: No acute distress, Alert. negative: Lethargic Eyes Bilateral: positive: Normal inspection, No lid inflammation ENT: positive: ENT inspection nml, No signs of dehydration. negative: Purulent nasal drainage Neck: positive: Nml inspection, Trachea midline. negative: Thyromegaly, Tracheal deviation Respiratory: positive: Chest non-tender, No respiratory distress, Breath sounds nml. negative: Wheezes, Rales Cardiovascular: positive: Regular rate & rhythm, No murmur. negative: Tachycardia, Bradycardia, Systolic murmur, Diastolic murmur Peripheral Pulses: positive: 2+ Abdomen: positive: Non-tender, Nml bowel sounds, No distention. negative: Tenderness Back: positive: Nml inspection Skin: positive: Color nml, Warm, Dry. negative: Cyanosis Extremities: positive: Non-tender, Nml appearance. negative: Calf tenderness Neurologic/Psychiatric: positive: Sensation nml. negative: Weakness, Sensory loss, Facial droop, Slurred/abnml speech Sepsis Event Note (H) - Evaluation Current Stage of Sepsis: Sepsis Possible source of Sepsis: positive: Genitourinary - Sepsis Criteria Sepsis Criteria: Recorded Temperature greater than 38.3C or Less than 36C, WBC count greater than 12,000 or less than 4000 Conclusion/Plan - Problem List (1) Sepsis Conclusion/Plan: Patient had fever, elevated WBC, Patient seems more weakness and confused. the patient's lactic acid is in normal range, patient is hemodynamic stable. CT of head and abdomen, chest x-ray are unremarkable. ER already started with Rocephin, we will continue Rocephin, intravenous IV fluids, blood cultures are pending and urine culture is pending (2) UTI (urinary tract infection) Conclusion/Plan: Urinalysis show pyuria. We will continue Rocephin, Urine culture is pending. Qualifiers: Urinary tract infection type: acute cystitis Hematuria presence: without hematuria Qualified Code(s): N30.00 - Acute cystitis without hematuria (3) Alzheimer's dementia Conclusion/Plan: Patient has history of Alzheimer's dementia with Behavioral disturbance. We will resume patient home medications, Seroquel, and Valproic acid now. (4) Generalized weakness Conclusion/Plan: Patient usually walk, Now who present Generalized weakness. Patient had fever and urinary tract infection. We will treat underlying infection. We will consult with PT and OT (5) Constipation Conclusion/Plan: CT of the abdomen show large stool Impacted. Nurse just report patient had a large bowel movement. We will resume bowel protocol as needed Qualifiers: Constipation type: unspecified constipation type Qualified Code(s): K59.00 - Constipation, unspecified - Lab Results Fish Bones: 08/03/21 11:41 08/03/21 11:41 Core Measures - Anticipated LOS I expect patient to be DC'd or transferred within 96 hours.: Yes - DVT/VTE - Prophylaxis VTE/DVT Device ordered at admit?: Yes VTE/DVT Prophylaxis med ordered at admit?: Yes
[2021-08-03 14:50] LABS: VALPROIC ACID (DEPAKOTE) 10.1 ug/mL
--- NOTE | 2021-08-03 15:08 | CT Report ---
PROCEDURE: HEAD WO INDICATIONS: altered mental status TECHNIQUE: Noncontrast 4.5 mm thick angled axial sections acquired from the foramen magnum to the vertex. For r adiation dose reduction, the following was used: automated exposure control, adjustment of mA and/or kV according to patient size. COMPARISON: None. FINDINGS: Image quality: Excellent. CSF spaces: Basal cisterns are patent. No extra-axial fluid collections. Ventricles are normal in size and shape. Brain: No midline shift. No intracranial masses or hemorrhage. Fowler-white matter interface is norm al. Left temporal fossa encephalomalacia may be chronic posttraumatic change. Age-related volume los s and mild to moderate small vessel ischemic change. Skull and face: Calvarium and visualized facial bones are intact, without suspicious lesions. Sinuses: Visualized sinuses and mastoids are clear. IMPRESSION: 1. No evidence of acute stroke, hemorrhage, or mass. 2. Age-related volume loss and small vessel ischemic change. 3. Encephalomalacia in the left temporal lobe may be posttraumatic. Reviewed by: Mike Talavera MD on 08/03/2021 3:07 PM PDT Approved by: Mike Talavera MD on 08/03/2021 3:07 PM PDT Station ID: [id number]
[2021-08-03] MEDS: SODIUM CHLORIDE 0.9% 1,000 ML IV SCH (16:06)
[2021-08-03] MEDS: SODIUM CHLORIDE FLUSH 0.9% 10 ML SYRINGE IVP SCH ×2 (16:07→23:25)
[2021-08-03] MEDS ORDERED: HALOPERIDOL 10 MG/5 ML UDC PO PRN (16:47)
[2021-08-03] MEDS: HALOPERIDOL 10 MG/5 ML UDC PO SCH ×3 (16:56→23:14)
[2021-08-03] MEDS: SACCHAROMYCES BOULARDII 250 MG CAPSULE PO SCH (16:58)
[2021-08-03] MEDS ORDERED: HALOPERIDOL 5 MG/ML VIAL IM ONE (18:00)
[2021-08-03] MEDS: VALPROATE 250 MG/5 ML SOLUTION UDC PO SCH (21:01)
[2021-08-03] MEDS: QUEtiapine 25 MG TABLET PO SCH (21:01)
[2021-08-04] MEDS: SODIUM CHLORIDE 0.9% 1,000 ML IV SCH (03:55)
[2021-08-04 06:17] LABS: BASOPHILS % (AUTO) 0.4 %; EOSINOPHILS # (AUTO) 0.2 10^3/uL (0.0-0.7); EOSINOPHILS % (AUTO) 2.8 %; HCT - HEMATOCRIT 39.8 % (42.0-52.0); HGB - HEMOGLOBIN 12.6 g/dL (14.0-18.0); LYMPHOCYTES # (AUTO) 1.5 10^3/uL (1.5-3.5); LYMPHOCYTES % (AUTO) 18.8 %; MEAN CORPUSCULAR HEMOGLOBIN 26.4 pg (27.0-31.0); MEAN CORPUSCULAR HGB CONC 31.7 g/dL (32.0-36.0); MEAN CORPUSCULAR VOLUME 83.3 fL (80.0-94.0); MEAN PLATELET VOLUME 9.9 fL (7.4-11.4); MONOCYTES # (AUTO) 0.7 10^3/uL (0.0-1.0); MONOCYTES % (AUTO) 8.8 %; NEUTROPHILS # (AUTO) 5.3 10^3/uL (1.5-6.6); NEUTROPHILS % (AUTO) 68.9 %; PLT - PLATELET COUNT 202 10^3/uL (130-450); RED BLOOD COUNT 4.78 10^6/uL (4.70-6.10); RED CELL DISTRIBUTION WIDTH 14.2 % (12.0-15.0); WHITE BLOOD COUNT 7.8 x10^3/uL (4.8-10.8)
[2021-08-04] MEDS: QUEtiapine 25 MG TABLET PO SCH ×2 (06:17→12:55)
[2021-08-04] MEDS: PANTOPRAZOLE 40 MG TABLET PO SCH (06:17)
[2021-08-04 06:26] LABS: CALCIUM 8.3 mg/dL (8.5-10.3); CREATININE 0.7 mg/dL (0.6-1.2); POTASSIUM 3.8 mmol/L (3.5-5.0)
[2021-08-04] MEDS: HALOPERIDOL 10 MG/5 ML UDC PO SCH ×2 (07:20→12:52)
[2021-08-04] MEDS: SACCHAROMYCES BOULARDII 250 MG CAPSULE PO SCH ×2 (09:08→16:38)
[2021-08-04] MEDS: ENOXAPARIN 40 MG/0.4 ML SYRINGE SUBQ SCH (09:09)
[2021-08-04] MEDS: SODIUM CHLORIDE FLUSH 0.9% 10 ML SYRINGE IVP SCH ×2 (09:09→16:38)
[2021-08-04] MEDS: cefTRIAXone 1 GM in SODIUM CHLORIDE 0.9% MINIBAG 100 ML IV SCH (09:09)
[2021-08-04] MEDS: VALPROATE 250 MG/5 ML SOLUTION UDC PO SCH (09:50)
--- NOTE | 2021-08-04 12:17 | PROVIDER PROGRESS NOTE ---
Assessment/Plan - Problem List (1) Sepsis Assessment/Plan: 08/04 Patient's WBC become normal, Patient has no more fever, Patient is hemodynamic stable. We will continue antibiotics treatment. Patient blood culture is pending and urine culture is pending. Patient had fever, elevated WBC, Patient seems more weakness and confused. the patient's lactic acid is in normal range, patient is hemodynamic stable. CT of head and abdomen, chest x-ray are unremarkable. ER already started with Rocephin, we will continue Rocephin, intravenous IV fluids, blood cultures are pending and urine culture is pending (2) UTI (urinary tract infection) Conclusion/Plan: 08/04 Continue antibiotics, UA culture is pending Urinalysis show pyuria. We will continue Rocephin, Urine culture is pending. (3) Alzheimer's dementia Conclusion/Plan: 1021, Patient has a history dementia with behavioral disturbance, now pt present Behavioral disturbance as his baseline, continue Haldol and Seroquel, nurse support as well. Patient has history of Alzheimer's dementia with Behavioral disturbance. We will resume patient home medications, Seroquel, and Valproic acid now. (4) Generalized weakness Conclusion/Plan: Patient usually walk, Now who present Generalized weakness. Patient had fever and urinary tract infection. We will treat underlying infection. We will consult with PT and OT (5) Constipation Conclusion/Plan: CT of the abdomen show large stool Impacted. Nurse just report patient had a large bowel movement. We will resume bowel protocol as needed (2) UTI (urinary tract infection) Qualifiers: Urinary tract infection type: acute cystitis Hematuria presence: without hematuria Qualified Code(s): N30.00 - Acute cystitis without hematuria (5) Constipation Qualifiers: Constipation type: unspecified constipation type Qualified Code(s): K59.00 - Constipation, unspecified - Current Meds Current Meds: Current Medications Generic Name Dose Route Start Last Admin Trade Name Freq PRN Reason Stop Dose Admin Enoxaparin Sodium 40 mg 08/04/21 09:00 08/04/21 09:09 Enoxaparin 40 Mg/0.4 Ml Syringe SUBQ 40 mg DAILY MADELINE Administration Haloperidol 1 mg 08/03/21 16:47 08/04/21 11:44 Haloperidol 10 Mg/5 Ml Udc PO 1 mg Q6H PRN Administration Agitation Haloperidol 2 mg 08/03/21 21:36 08/04/21 07:20 Haloperidol 10 Mg/5 Ml Udc PO Not Given TID MADELINE Sodium Chloride 1,000 mls @ 83.3 mls/hr 08/03/21 15:00 08/04/21 03:55 Normal Saline 0.9% IV 08/04/21 15:00 83.3 mls/hr .Q12H1M MADELINE Administration Ceftriaxone Sodium 1 gm/ 100 mls @ 200 mls/hr 08/04/21 09:00 08/04/21 10:00 Sodium Chloride IV Infused DAILY MADELINE Infusion Pantoprazole Sodium 40 mg 08/04/21 07:00 08/04/21 06:17 Pantoprazole 40 Mg Tablet PO 40 mg QDAC MADELINE Administration Quetiapine Fumarate 75 mg 08/03/21 22:00 08/04/21 06:17 Quetiapine 25 Mg Tablet PO 75 mg TID MADELINE Administration Saccharomyces Boulardii 250 mg 08/03/21 17:00 08/04/21 09:08 Saccharomyces Boulardii 250 Mg Capsule PO 250 mg BIDWM MADELINE Administration Sodium Chloride 10 ml 08/03/21 17:00 08/04/21 09:09 Sodium Chloride Flush 0.9% 10 Ml Syringe IVP 10 ml 0100,0900,1700 MADELINE Administration Valproic Acid 125 mg 08/03/21 21:00 08/04/21 09:50 Valproate 250 Mg/5 Ml Solution Udc PO 125 mg BID MADELIEN Administration - Lab Result Fish Bone Diagrams: 08/04/21 06:11 08/04/21 06:11 - Additional Planning My Orders: My Active Orders 08/03/21 14:08 Activity Orders [RC] Q2HR IO [RC] IOSHIFT Initiate Bowel Care Protocol [RC] .protocol Initiate Line Care Protocol [RC] QSHIFT Initiate Personal Care Protoco [RC] .protocol Vital Signs [RC] 0800,1600,0000 Acetaminophen [Tylenol] 650 mg PO Q4HR PRN Ondansetron Inj [Zofran Inj] 4 mg IVP Q6HR PRN Sodium Chloride Flush 0.9% [Normal Saline Flush 0.9%] 10 ml IVP PRN PRN Code Status [OTHERS] Routine Condition of Patient [OTHERS] Routine DVT Prophylaxis [OTHERS] Routine 08/03/21 14:11 SCDs [RC] QSHIFT 08/03/21 15:00 Sodium Chloride 0.9% [Normal Saline 0.9%] 1,000 ml IV 83.3 mls/hr 08/03/21 15:49 Code Status [OTHERS] Routine 08/03/21 Dinner Soft Mechanical Diet [DIET] 08/03/21 16:47 Haloperidol Oral Soln [Haldol Oral Soln] 1 mg PO Q6H PRN 08/03/21 17:00 Saccharomyces Boulardii [Florastor] 250 mg PO BIDWM Sodium Chloride Flush 0.9% [Normal Saline Flush 0.9%] 10 ml IVP 0100,0900,1700 08/03/21 21:00 Valproate Oral Soln [Valproic Acid Oral Soln] 125 mg PO BID 08/03/21 22:00 QUEtiapine [SEROquel] 75 mg PO TID 08/04/21 1:1 Safety Observation [OTHERS] Routine 08/04/21 07:00 Pantoprazole [Protonix] 40 mg PO QDAC 08/04/21 09:00 Enoxaparin [Lovenox] 40 mg SUBQ DAILY cefTRIAXone [Rocephin] 1 gm Sodium Chloride 0.9% Minibag [Normal Saline 0.9% Minibag] 100 ml IV DAILY 08/05/21 05:00 BMP - BASIC METABOLIC PANEL [CHEM] DAILYLAB CBC - COMP BLD CT W/AUTO DIFF [HEME] DAILYLAB 08/06/21 05:00 BMP - BASIC METABOLIC PANEL [CHEM] DAILYLAB CBC - COMP BLD CT W/AUTO DIFF [HEME] DAILYLAB 08/07/21 05:00 BMP - BASIC METABOLIC PANEL [CHEM] DAILYLAB CBC - COMP BLD CT W/AUTO DIFF [HEME] DAILYLAB 08/08/21 05:00 BMP - BASIC METABOLIC PANEL [CHEM] DAILYLAB CBC - COMP BLD CT W/AUTO DIFF [HEME] DAILYLAB Subjective - Subjective Nursing Reports: Confused Objective Vital Signs: Vital Signs - 24 hr 08/03/21 08/03/21 08/03/21 12:42 13:56 15:10 Temperature 37.4 C Heart Rate 88 85 Heart Rate [ 87 Brachial] Respiratory 19 17 Rate Blood Pressure 128/71 121/69 Blood Pressure [Left Brachial artery] Blood Pressure 132/67 H [Right Brachial artery] O2 Saturation 99 97 97 08/03/21 08/03/21 08/04/21 15:15 23:23 08:00 Temperature 37.4 C 37.2 C 36.7 C Heart Rate Heart Rate [ 87 82 80 Brachial] Respiratory 20 18 18 Rate Blood Pressure Blood Pressure 119/60 [Left Brachial artery] Blood Pressure 132/67 H 115/54 L [Right Brachial artery] O2 Saturation 97 100 95 Oxygen O2 Source Room air I&O (Last 24 Hrs): Intake and Output Totals x24h 08/02/21 08/03/21 08/04/21 23:59 23:59 23:59 Intake Total 624.005 751.732 Balance 624.005 751.732 General: Alert, No acute distress HEENT: Atraumatic Neck: Supple Lymphatic: no adenopathy Neuro: Alert, Non Focal Cardiovascular: Regular rate, Normal S1, Normal S2 Respiratory: Chest non-tender, No respiratory distress Abdomen: Normal bowel sounds, Soft Extremities: Normal pulses - Results Results: Laboratory Results WBC 7.8 x10^3/uL (4.8-10.8) 08/04/21 06:11 RBC 4.78 10^6/uL (4.70-6.10) 08/04/21 06:11 Hgb 12.6 g/dL (14.0-18.0) L 08/04/21 06:11 Hct 39.8 % (42.0-52.0) L 08/04/21 06:11 MCV 83.3 fL (80.0-94.0) 08/04/21 06:11 MCH 26.4 pg (27.0-31.0) L 08/04/21 06:11 MCHC 31.7 g/dL (32.0-36.0) L 08/04/21 06:11 RDW 14.2 % (12.0-15.0) 08/04/21 06:11 Plt Count 202 10^3/uL (130-450) 08/04/21 06:11 MPV 9.9 fL (7.4-11.4) 08/04/21 06:11 Neut # (Auto) 5.3 10^3/uL (1.5-6.6) 08/04/21 06:11 Lymph # (Auto) 1.5 10^3/uL (1.5-3.5) 08/04/21 06:11 Leake # (Auto) 0.7 10^3/uL (0.0-1.0) 08/04/21 06:11 Eos # (Auto) 0.2 10^3/uL (0.0-0.7) 08/04/21 06:11 Baso # (Auto) 0.0 10^3/uL (0.0-0.1) 08/04/21 06:11 Absolute Nucleated RBC 0.00 x10^3/uL 08/04/21 06:11 Nucleated RBC % 0.0 /100WBC 08/04/21 06:11 Sodium 135 mmol/L (135-145) 08/04/21 06:11 Potassium 3.8 mmol/L (3.5-5.0) 08/04/21 06:11 Chloride 103 mmol/L (101-111) 08/04/21 06:11 Carbon Dioxide 24 mmol/L (21-32) 08/04/21 06:11 Anion Gap 8.0 (6-13) 08/04/21 06:11 BUN 18 mg/dL (6-20) 08/04/21 06:11 Creatinine 0.7 mg/dL (0.6-1.2) 08/04/21 06:11 Estimated GFR (MDRD) 109 (>89) 08/04/21 06:11 Glucose 103 mg/dL (70-100) H 08/04/21 06:11 Lactic Acid 1.3 mmol/L (0.5-2.2) 08/03/21 11:41 Calcium 8.3 mg/dL (8.5-10.3) L 08/04/21 06:11 Total Bilirubin 1.5 mg/dL (0.2-1.0) H 08/03/21 11:41 AST 40 IU/L (10-42) 08/03/21 11:41 ALT 24 IU/L (10-60) 08/03/21 11:41 Alkaline Phosphatase 60 IU/L (42-121) 08/03/21 11:41 B-Natriuretic Peptide 91 pg/mL (5-100) 08/03/21 11:41 Total Protein 7.7 g/dL (6.7-8.2) 08/03/21 11:41 Albumin 4.0 g/dL (3.2-5.5) 08/03/21 11:41 Globulin 3.7 g/dL (2.1-4.2) 08/03/21 11:41 Albumin/Globulin Ratio 1.1 (1.0-2.2) 08/03/21 11:41 Urine Color YELLOW 08/03/21 11:30 Urine Clarity CLEAR (CLEAR) 08/03/21 11:30 Urine pH 6.5 PH (5.0-7.5) 08/03/21 11:30 Ur Specific [place] 1.015 (1.002-1.030) 08/03/21 11:30 Urine Protein NEGATIVE mg/dL (NEGATIVE) 08/03/21 11:30 Urine Glucose (UA) NEGATIVE mg/dL (NEGATIVE) 08/03/21 11:30 Urine Ketones 40 mg/dL (NEGATIVE) H 08/03/21 11:30 Urine Occult Blood SMALL (NEGATIVE) H 08/03/21 11:30 Urine Nitrite NEGATIVE (NEGATIVE) 08/03/21 11:30 Urine Bilirubin NEGATIVE (NEGATIVE) 08/03/21 11:30 Urine Urobilinogen 0.2 (NORMAL) E.U./dL (NORMAL) 08/03/21 11:30 Ur Leukocyte Esterase TRACE (NEGATIVE) H 08/03/21 11:30 Urine RBC 6-10 /HPF (0-5) H 08/03/21 11:30 Urine WBC 6-10 /HPF (0-3) H 08/03/21 11:30 Ur Squamous Epith Cells FEW Squamous (<= Few) 08/03/21 11:30 Urine Bacteria Few /HPF (None Seen) 08/03/21 11:30 Urine Mucus Few Strands 08/03/21 11:30 Urine Culture Comments INDICATED 08/03/21 11:30 Nasal Adenovirus (PCR) NOT DETECTED 08/03/21 11:30 Nasal B. parapertussis DNA (PCR) NOT DETECTED 08/03/21 11:30 Nasal Coronavir 229E PCR NOT DETECTED 08/03/21 11:30 Nasal Coronavir HKU1 PCR NOT DETECTED 08/03/21 11:30 Nasal Coronavir NL63 PCR NOT DETECTED 08/03/21 11:30 Nasal Coronavir OC43 PCR NOT DETECTED 08/03/21 11:30 Nasal Enterovir/Rhinovir PCR NOT DETECTED 08/03/21 11:30 Nasal Influenza B PCR NOT DETECTED 08/03/21 11:30 Nasal Influenza A PCR NOT DETECTED 08/03/21 11:30 Nasal Parainfluen 1 PCR NOT DETECTED 08/03/21 11:30 Nasal Parainfluen 2 PCR NOT DETECTED 08/03/21 11:30 Nasal Parainfluen 3 PCR NOT DETECTED 08/03/21 11:30 Nasal Parainfluen 4 PCR NOT DETECTED 08/03/21 11:30 Nasal RSV (PCR) NOT DETECTED 08/03/21 11:30 Nasal B.pertussis DNA PCR NOT DETECTED 08/03/21 11:30 Nasal C.pneumoniae (PCR) NOT DETECTED 08/03/21 11:30 Steve Human Metapneumo PCR NOT DETECTED 08/03/21 11:30 Nasal M.pneumoniae (PCR) NOT DETECTED 08/03/21 11:30 Nasal SARS-CoV-2 (PCR) NOT DETECTED 08/03/21 11:30 Last Dose Date Not Reportable 08/03/21 14:27 Last Dose Time Not Reportable 08/03/21 14:27 Valproic Acid 10.1 ug/mL 08/03/21 14:27 Sepsis Event Note (H) - Evaluation Current Stage of Sepsis: Sepsis Possible source of Sepsis: positive: Genitourinary - Sepsis Criteria Sepsis Criteria: Recorded Temperature greater than 38.3C or Less than 36C, WBC count greater than 12,000 or less than 4000 ABX Reporting Has patient been on IV antibiotics over the past 48 hours?: Yes Current Medications - Current Medications Current Medications: Active Medications Acetaminophen (Acetaminophen 325 Mg Tablet) 650 mg PO Q4HR PRN PRN Reason: Pain 1 to 4 Enoxaparin Sodium (Enoxaparin 40 Mg/0.4 Ml Syringe) 40 mg SUBQ DAILY [facility] Last Admin: 08/04/21 09:09 Dose: 40 mg Documented by: Haloperidol (Haloperidol 10 Mg/5 Ml Udc) 1 mg PO Q6H PRN PRN Reason: Agitation Last Admin: 08/04/21 11:44 Dose: 1 mg Documented by: Haloperidol (Haloperidol 10 Mg/5 Ml Udc) 2 mg PO TID [facility] Last Admin: 08/04/21 07:20 Dose: Not Given Documented by: Sodium Chloride (Normal Saline 0.9%) 1,000 mls @ 83.3 mls/hr IV .Q12H1M [facility] Stop: 08/04/21 15:00 Last Admin: 08/04/21 03:55 Dose: 83.3 mls/hr Documented by: Ceftriaxone Sodium 1 gm/ (Sodium Chloride) 100 mls @ 200 mls/hr IV DAILY [facility] Last Infusion: 08/04/21 10:00 Dose: Infused Documented by: Ondansetron HCl (Ondansetron 4 Mg/2 Ml Vial) 4 mg IVP Q6HR PRN PRN Reason: Nausea / Vomiting Pantoprazole Sodium (Pantoprazole 40 Mg Tablet) 40 mg PO QDAC [facility] Last Admin: 08/04/21 06:17 Dose: 40 mg Documented by: Quetiapine Fumarate (Quetiapine 25 Mg Tablet) 75 mg PO TID [facility] Last Admin: 08/04/21 06:17 Dose: 75 mg Documented by: Saccharomyces Boulardii (Saccharomyces Boulardii 250 Mg Capsule) 250 mg PO BIDWM [facility] Last Admin: 08/04/21 09:08 Dose: 250 mg Documented by: Sodium Chloride (Sodium Chloride Flush 0.9% 10 Ml Syringe) 10 ml IVP PRN PRN PRN Reason: NEEDED PER PROVIDER ORDERS Sodium Chloride (Sodium Chloride Flush 0.9% 10 Ml Syringe) 10 ml IVP 0100,0900,1700 [facility] Last Admin: 08/04/21 09:09 Dose: 10 ml Documented by: Valproic Acid (Valproate 250 Mg/5 Ml Solution Ud) 125 mg PO BID [facility] Last Admin: 08/04/21 09:50 Dose: 125 mg Documented by: QUEtiapine [SEROquel] 75 mg PO TID 02/23/21 Haloperidol Oral Soln [Haldol Oral Soln] 1 mg PO Q6H PRN 05/16/21 Haloperidol Oral Soln [Haldol Oral Soln] 2 mg PO TID 05/22/21 polyethylene glycoL 3350 [Miralax] 0.5 cap PO DAILY 05/30/21 Valproic Acid (As Sodium Salt) [Valproic Acid] 125 mg PO BID 06/08/21 Tamsulosin [Flomax] 0.4 mg PO DAILY PM 08/03/21
--- NOTE | 2021-08-04 13:41 | PHARMACY PROGRESS NOTE ---
- Best Possible Medication History Admit Date and Time: 08/03/21 1408 Processed by: Pharmacy Medication History completed: Yes Patient Interview: Completed (PATIENT'S SPOUSE ABLE TO CONFIRM HOME MEDICATIONS) As the person ultimately responsible for medication therapy, providers are able to order a medication from an existing home medication list in [facility] via the "Reconcile Routine" prior to Confirmation of that medication by support services coordinator. Such practice is discouraged except when the physician, in their clinical judgment, deems that a medical need exists for a medication without regard to previous use.
[2021-08-05] MEDS: SODIUM CHLORIDE FLUSH 0.9% 10 ML SYRINGE IVP SCH ×2 (03:19→09:07)
[2021-08-05] MEDS: QUEtiapine 25 MG TABLET PO SCH ×2 (05:15→05:24)
[2021-08-05] MEDS: HALOPERIDOL 10 MG/5 ML UDC PO SCH ×2 (05:15→05:23)
[2021-08-05] MEDS: VALPROATE 250 MG/5 ML SOLUTION UDC PO SCH ×2 (05:16→09:17)
[2021-08-05] MEDS: PANTOPRAZOLE 40 MG TABLET PO SCH (06:40)
[2021-08-05 06:54] LABS: BASOPHILS % (AUTO) 0.6 %; EOSINOPHILS # (AUTO) 0.3 10^3/uL (0.0-0.7); EOSINOPHILS % (AUTO) 4.8 %; HCT - HEMATOCRIT 42.8 % (42.0-52.0); HGB - HEMOGLOBIN 13.2 g/dL (14.0-18.0); LYMPHOCYTES # (AUTO) 1.1 10^3/uL (1.5-3.5); LYMPHOCYTES % (AUTO) 17.2 %; MEAN CORPUSCULAR HEMOGLOBIN 26.3 pg (27.0-31.0); MEAN CORPUSCULAR HGB CONC 30.8 g/dL (32.0-36.0); MEAN CORPUSCULAR VOLUME 85.4 fL (80.0-94.0); MEAN PLATELET VOLUME 9.7 fL (7.4-11.4); MONOCYTES # (AUTO) 0.5 10^3/uL (0.0-1.0); MONOCYTES % (AUTO) 8.1 %; NEUTROPHILS # (AUTO) 4.5 10^3/uL (1.5-6.6); PLT - PLATELET COUNT 220 10^3/uL (130-450); RED BLOOD COUNT 5.01 10^6/uL (4.70-6.10); RED CELL DISTRIBUTION WIDTH 14.1 % (12.0-15.0); WHITE BLOOD COUNT 6.5 x10^3/uL (4.8-10.8)
[2021-08-05 07:00] LABS: CALCIUM 8.6 mg/dL (8.5-10.3); CREATININE 0.7 mg/dL (0.6-1.2); POTASSIUM 3.6 mmol/L (3.5-5.0)
[2021-08-05 07:41] VITALS: BP 113/65
[2021-08-05] MEDS: ENOXAPARIN 40 MG/0.4 ML SYRINGE SUBQ SCH (09:07)
[2021-08-05] MEDS: cefTRIAXone 1 GM in SODIUM CHLORIDE 0.9% MINIBAG 100 ML IV SCH (09:11)
[2021-08-05] MEDS: SACCHAROMYCES BOULARDII 250 MG CAPSULE PO SCH (09:18)
--- NOTE | 2021-08-05 10:39 | Discharge Plan ---
Discharge Plan Problem Reviewed?: Yes Disposition: Home, Self Care Condition: Stable Prescriptions: Ciprofloxacin [Cipro] 250 mg PO Q12H 3 Days #6 tablet Diet: Regular Activity Restrictions: Activity as Tolerated (with assist) Weight Bearing: Full Weight Health Concerns: You were admitted on 08/03/2021 with altered mental status which was thought to be secondary to a UTI. Urine and blood cultures were drawn and you were started on ceftriaxone 1 g IV daily. Urine culture subsequently grew strep mitis. Over the course of your 3-day hospital stay you improved significantly and by the time of discharge you were back to your baseline mental status. You are being discharged home in stable condition. You will be prescribed Cipro p.o. twice daily for 3 days. Follow up with your primary care physician as needed. No Smoking: If you smoke, Please STOP! Call for help. Follow-up with: René Andino DO [Primary Care Provider] -
--- NOTE | 2021-08-05 10:39 | DISCHARGE SUMMARY ---
Discharge Summary Admit Date: 08/03/21 Discharge Date: 08/05/21 Discharging Provider: Dilshad Alonzo Primary Care Provider: René Andino Code Status: Do Not Attempt Resuscitation Condition at Discharge: Stable Discharge Disposition: 01 Home, Self Care - DIAGNOSES Admission Diagnoses: Sepsis UTI Alzheimer's dementia Generalized weakness Constipation Discharge Diagnoses with Status of Each Condition: Sepsis: Acute. Resolved UTI: acute. Improving/resolved Alzheimer's dementia: Chronic. Continue home medication Generalized weakness: Improved Constipation: Continue with home bowel regimen - HPI History of Present Illness: Per HPI: This is a teresa 75-year-old gentleman A past medical history Significantly with progressing severe Alzheimer's dementia with hallucinations and behavioral disturbances and underlying anxiety and agitation, urinary incontinence, Who present to ER for evaluation of decreased responsiveness. Pt is alert and confused. He report "I know nothing." Per ER report, pt is Usually ambulatory but he was unable to get out of bed in the last 2 days. pt was reported to have fever at home. Chest x-ray show unremarkable. CT of the abdomen/pelvis show large fecal impaction with very large diffuse fecal load. CT of the head show no evidence of acute stroke, hemorrhage, or mass. Routine laboratory tests that show patient had elevated WBC 12.1. Urinalysis show pyuria indicated UTI. Patient is febrile with a temperature 38.3 at the ER, Otherwise patient is he modynamic stable. ER provider talked with the patient , patient was already given Rocephin antibiotics in the ER. Patient had a recent PLOST Which state patient is DNR with focus on comfortable measure. - HOSPITAL COURSE Hospital Course: Patient was started on ceftriaxone after blood and urine cultures were obtained. His urine cultures subsequently grew strep mitis. CT of the brain done at time of admission which was negative for any acute intracranial process. CT of the abdomen pelvis was only significant for large rectal fecal impaction with a very large diffuse fecal load. Chest x-ray was unremarkable Over the course of 2-day hospital stay his mentation improved such that he was back to baseline by time of discharge. At baseline he has Alzheimer's dementia and is minimally communicative. He has a flat affect. He requires direction/redirection often. Upon discharge she was prescribed Cipro to 50 mg p.o. twice daily x3 days. He was discharged home in stable condition. - ALLERGIES Allergies/Adverse Reactions: Allergies Allergy/AdvReac Type Severity Reaction Status Date / Time No Known Drug Allergies Allergy Verified 05/27/21 10:12 - MEDICATIONS Home Medications: Ambulatory Orders Medication Instructions Recorded Confirmed QUEtiapine [SEROquel] 75 mg PO TID 02/23/21 08/03/21 Haloperidol Oral Soln [Haldol Oral 1 mg PO Q6H PRN 05/16/21 08/03/21 Soln] Haloperidol Oral Soln [Haldol Oral 2 mg PO TID 05/22/21 08/03/21 Soln] polyethylene glycoL 3350 [Miralax] 0.5 cap PO DAILY 05/30/21 08/03/21 Valproic Acid (As Sodium Salt) 125 mg PO BID 06/08/21 08/03/21 [Valproic Acid] Ciprofloxacin [Cipro] 250 mg PO Q12H 3 Days #6 tablet 08/05/21 - PHYSICAL EXAM AT DISCHARGE General Appearance: positive: No acute distress, Other (Awake, alert but not very communicative, Flat affect at baseline) Eyes Bilateral: positive: PERRL, EOMI ENT: positive: No signs of dehydration Neck: positive: No JVD, Trachea midline Respiratory: positive: Chest non-tender, No respiratory distress, Breath sounds nml. negative: Wheezes, Rales, Rhonchi Cardiovascular: positive: Regular rate & rhythm, No murmur Abdomen: positive: Non-tender, No organomegaly, Nml bowel sounds, No distention. negative: Guarding, Rebound Back: positive: Nml inspection Skin: positive: Color nml, No rash, Warm, Dry Extremities: positive: Non-tender, No pedal edema Neurologic/Psychiatric: positive: Oriented x3, Mood/affect nml - LABS Result Diagrams: 08/05/21 06:37 08/05/21 06:37 - SEPSIS Current Stage of Sepsis: Sepsis Possible source of Sepsis: Genitourinary Sepsis Criteria: Recorded Temperature greater than 38.3C or Less than 36C, WBC count greater than 12,000 or less than 4000 - TIME SPENT Time Spent in Discharge (Minutes): 25
== END 2021-08-05 11:50 | disposition home or self-care (01) | DRG 872 ==
LOC: EDUNIT# → ED 10:04 → MS2 14:08
PROVIDERS: ADMIT Nurse Practitioner Gerontology; ATTEND Internal Medicine
DX: A41.9 Sepsis, unspecified organism (principal); N30.00 Acute cystitis without hematuria; F02.81 Dementia in other diseases classified elsewhere, unspecified severity, with behavioral disturbance; Z20.822 Contact with and (suspected) exposure to COVID-19; R41.82 Altered mental status, unspecified; R06.02 Shortness of breath; R44.3 Hallucinations, unspecified; G30.9 Alzheimer's disease, unspecified; B95.4 Other streptococcus as the cause of diseases classified elsewhere; F41.9 Anxiety disorder, unspecified; Z66 Do not resuscitate; Z87.891 Personal history of nicotine dependence; R53.1 Weakness; K59.00 Constipation, unspecified; R32 Unspecified urinary incontinence
CPT/HCPCS: 36415; 51701; 51798; 70450; 71045; 74177; 80048; 80053; 80164; 81001; 83605; 83880; 85025; 87040; 87077; 87086; 87181; 87631; 96374; 97161; 99284; 99285; A9270; J1650; J3490; Q9967; 0202U

== ENCOUNTER 2021-08-07 08:47 | Outpatient (CLI) | payer MEDICARE | END 2021-08-07 08:48 | disposition critical access hospital (66) | LOC: EMS 08:47 | DX: R50.9 Fever, unspecified (principal) | CPT/HCPCS: A0425; A0429 ==

== ENCOUNTER 2021-08-07 09:04 | Emergency (ER) | payer MEDICARE ==
[2021-08-07] MEDS ORDERED: SODIUM CHLORIDE 0.9% 1,000 ML IV STA (09:40)
[2021-08-07] MEDS ORDERED: ACETAMINOPHEN 650 MG SUPP PR STA (09:40)
--- NOTE | 2021-08-07 09:43 | ED Physician Documentation ---
History of Present Illness - Stated complaint Stated Complaint: FEVER - Chief complaint Chief Complaint: Fever - History obtained from History obtained from: EMS - Additonal information Additional information: Patient was sent to the emergency department via EMS by his for chief complaint of fever. The patient is severely demented and is unable to offer any information on his own. According to medics, this is his baseline per . They state that the thought that patient felt hot this morning and measured a temperature of 100.2 on him. She also needed help changing his diaper. Med ics state when they got there, they found the patient to have a temporal temperature of 98, and both oral and tympanic temperatures here were afebrile. Per medics, states they have not gone out anywhere. The patient is unvaccinated for Covid. No other specific symptoms reported. Review of Systems Unable to obtain: Dementia PD PAST MEDICAL HISTORY - Past Medical History Cardiovascular: High cholesterol Respiratory: Shortness of breath (on exertion, pulse ox 98% today with ambulation 02/02/2021) Neuro: Alzhiemer's, Dementia Endocrine/Autoimmune: None GI: GERD : Incontinence Psych: Anxiety Musculoskeletal: Chronic back pain Derm: None - Past Surgical History Past Surgical History: Yes General: Appendectomy HEENT: Other (several strabismus surgeries as a child) - Present Medications Home Medications: Ambulatory Orders Medication Instructions Recorded Confirmed QUEtiapine [SEROquel] 75 mg PO TID 02/23/21 08/03/21 Haloperidol Oral Soln [Haldol Oral 1 mg PO Q6H PRN 05/16/21 08/03/21 Soln] Haloperidol Oral Soln [Haldol Oral 2 mg PO TID 05/22/21 08/03/21 Soln] polyethylene glycoL 3350 [Miralax] 0.5 cap PO DAILY 05/30/21 08/03/21 Valproic Acid (As Sodium Salt) 125 mg PO BID 06/08/21 08/03/21 [Valproic Acid] Ciprofloxacin [Cipro] 250 mg PO Q12H 3 Days #6 tablet 08/05/21 - Allergies Allergies/Adverse Reactions: Allergies Allergy/AdvReac Type Severity Reaction Status Date / Time No Known Drug Allergies Allergy Verified 08/07/21 09:16 - Social History Does the pt smoke?: No Smoking Status: Never smoker Does the pt drink ETOH?: No Does the pt have substance abuse?: No - POLST Patient has POLST: Yes PD ED PE NORMAL - Vitals Vital signs reviewed: Yes - General General: No acute distress, Well developed/nourished, Other (Patient lies with eyes closed, occasionally verbalizing.) - HEENT HEENT: Atraumatic, PERRL, EOMI, Moist mucous membranes - Neck Neck: Supple, no meningeal sign - Cardiac Cardiac: RRR, No murmur, Strong equal pulses - Respiratory Respiratory: No respiratory distress, Clear bilaterally - Abdomen Abdomen: Soft, Non tender, Non distended - Derm Derm: Normal color, Warm and dry, No rash - Extremities Extremities: No deformity, No edema - Neuro Neuro: Other (Patient moves all 4 extremities, but is unable to cooperate with any sort of neurologic exam. He is occasionally verbal, but does not answer questions.) - Psych Psych: Normal mood, Normal affect Results - Vitals Vitals: Vital Signs - 24 hr 08/07/21 13:36 Heart Rate 75 Respiratory 16 Rate Blood Pressure 118/68 O2 Saturation 98 Oxygen O2 Source Room air - Labs Labs: Laboratory Tests 08/07/21 08/07/21 08/07/21 09:50 09:50 09:52 WBC 8.4 RBC 5.49 Hgb 14.6 Hct 45.4 MCV 82.7 MCH 26.6 L MCHC 32.2 RDW 13.7 Plt Count 289 MPV 9.5 Neut # (Auto) 7.0 H Lymph # (Auto) 0.8 L [place] # (Auto) 0.6 Eos # (Auto) 0.0 Baso # (Auto) 0.0 Absolute Nucleated RBC 0.00 Nucleated RBC % 0.0 Sodium 138 Potassium 4.1 Chloride 102 Carbon Dioxide 26 Anion Gap 10.0 BUN 15 Creatinine 0.8 Estimated GFR (MDRD) 94 Glucose 107 H Calcium 8.8 Total Bilirubin 0.9 AST 32 ALT 19 Alkaline Phosphatase 50 Total Protein 7.1 Albumin 3.5 Globulin 3.6 Albumin/Globulin Ratio 1.0 Urine Color Urine Clarity Urine pH Ur Specific [place] Urine Protein Urine Glucose (UA) Urine Ketones Urine Occult Blood Urine Nitrite Urine Bilirubin Urine Urobilinogen Ur Leukocyte Esterase Ur Microscopic Review Urine Culture Comments Nasal Adenovirus (PCR) NOT DETECTED Nasal B. parapertussis DNA (PCR) NOT DETECTED Nasal Coronavir 229E PCR NOT DETECTED Nasal Coronavir HKU1 PCR NOT DETECTED Nasal Coronavir NL63 PCR NOT DETECTED Nasal Coronavir OC43 PCR NOT DETECTED Nasal Enterovir/Rhinovir PCR NOT DETECTED Nasal Influenza B PCR NOT DETECTED Nasal Influenza A PCR NOT DETECTED Nasal Parainfluen 1 PCR NOT DETECTED Nasal Parainfluen 2 PCR NOT DETECTED Nasal Parainfluen 3 PCR NOT DETECTED Nasal Parainfluen 4 PCR NOT DETECTED Nasal RSV (PCR) NOT DETECTED Nasal B.pertussis DNA PCR NOT DETECTED Nasal C.pneumoniae (PCR) NOT DETECTED Steve Human Metapneumo PCR NOT DETECTED Nasal M.pneumoniae (PCR) NOT DETECTED Nasal SARS-CoV-2 (PCR) NOT DETECTED 08/07/21 11:40 WBC RBC Hgb Hct MCV MCH MCHC RDW Plt Count MPV Neut # (Auto) Lymph # (Auto) [place] # (Auto) Eos # (Auto) Baso # (Auto) Absolute Nucleated RBC Nucleated RBC % Sodium Potassium Chloride Carbon Dioxide Anion Gap BUN Creatinine Estimated GFR (MDRD) Glucose Calcium Total Bilirubin AST ALT Alkaline Phosphatase Total Protein Albumin Globulin Albumin/Globulin Ratio Urine Color YELLOW Urine Clarity CLEAR Urine pH 7.0 Ur Specific [place] 1.015 Urine Protein NEGATIVE Urine Glucose (UA) NEGATIVE Urine Ketones TRACE Urine Occult Blood TRACE-INTA Urine Nitrite NEGATIVE Urine Bilirubin NEGATIVE Urine Urobilinogen 0.2 (NORMAL) Ur Leukocyte Esterase NEGATIVE Ur Microscopic Review NOT INDICATED Urine Culture Comments NOT INDICATED Nasal Adenovirus (PCR) Nasal B. parapertussis DNA (PCR) Nasal Coronavir 229E PCR Nasal Coronavir HKU1 PCR Nasal Coronavir NL63 PCR Nasal Coronavir OC43 PCR Nasal Enterovir/Rhinovir PCR Nasal Influenza B PCR Nasal Influenza A PCR Nasal Parainfluen 1 PCR Nasal Parainfluen 2 PCR Nasal Parainfluen 3 PCR Nasal Parainfluen 4 PCR Nasal RSV (PCR) Nasal B.pertussis DNA PCR Nasal C.pneumoniae (PCR) Steve Human Metapneumo PCR Nasal M.pneumoniae (PCR) Nasal SARS-CoV-2 (PCR) - Rads (name of study) CXR Radiology: Final report received, EMP read indepedently, See rad report (neg) PD MEDICAL DECISION MAKING - ED course Complexity details: reviewed results, re-evaluated patient, considered differential ED course: I did perform a rectal temperature myself and patient was found to have temperature of 100.5. He was worked up with labs, urinalysis, CXR and respiratory PCR panel. He was given a liter 0.9 normal saline and a dose of rectal Tylenol. Entire work-up was negative. Pt did not display any abnormal vital signs outside of the low-grade fever, and I did not feel he was near sepsis at this time. Pt was stable for d/c home. Departure - Departure Disposition: 01 Home, Self Care Clinical Impression: Febrile illness Condition: Stable Instructions: ED Fever Unconf Cause Comments: Mr. Sales has had a mild fever here in the emergency department, at 100.5 rectally. This is a very low-grade fever, but because of his advanced age, he has been evaluated with multiple test to determine whether there is a serious cause for the fever. At this point in time, all testing has come back negative, including urinalysis, chest x-ray, and blood work. A viral panel is pending at this time, which includes Covid. This also test for a number of other viruses that are commonly going around this time a year. He should self quarantine until the test result is back and negative. This should be done sometime this afternoon. We will call with a positive result, but the fastest way to get a negative result for confirmation is to go to the hospital website at [email or web address], click on the "my [facility]" tab and sign up for the patient portal. You may give Martín Tylenol 650 mg every 4 hours and ibuprofen 600 mg every 6 hours, as needed for fever. This is most likely a viral illness which will blow over on its own, given time. There is not a specific treatment for most viruses. However, if he begins to become significantly worse, especially having difficulty breathing, or coughing, or having severe vomiting and diarrhea, then please bring him back to the emergency department. Discharge Date/Time: 08/07/21 13:38
--- NOTE | 2021-08-07 10:04 | XRAY Report ---
PROCEDURE: Chest 1 View X-Ray INDICATIONS: chest pain TECHNIQUE: One view of the chest was acquired. COMPARISON: August 03, 2021 FINDINGS: SUPPORT DEVICES: None. LUNG/PLEURA: Low lung volumes are prominence of the bronchovascular markings. No focal consolidation, pleural effusion or space-occupying pneumothorax. MEDIASTINUM: Prominence of the cardiomediastinal silhouette, partially exaggerated by technique. BONES/SOFT TISSUES: No acute abnormality. Calcific density projecting over the left humeral head, mos t consistent with calcific tendinopathy. IMPRESSION: 1.No acute cardiopulmonary abnormality. Reviewed by: Jerad Neves MD on 08/07/2021 10:02 AM PDT Approved by: Jerad Neves MD on 08/07/2021 10:02 AM PDT Station ID: [id number]
[2021-08-07 10:06] LABS: BASOPHILS % (AUTO) 0.2 %; EOSINOPHILS % (AUTO) 0.2 %; HCT - HEMATOCRIT 45.4 % (42.0-52.0); HGB - HEMOGLOBIN 14.6 g/dL (14.0-18.0); LYMPHOCYTES # (AUTO) 0.8 10^3/uL (1.5-3.5); LYMPHOCYTES % (AUTO) 9.2 %; MEAN CORPUSCULAR HEMOGLOBIN 26.6 pg (27.0-31.0); MEAN CORPUSCULAR HGB CONC 32.2 g/dL (32.0-36.0); MEAN CORPUSCULAR VOLUME 82.7 fL (80.0-94.0); MEAN PLATELET VOLUME 9.5 fL (7.4-11.4); MONOCYTES # (AUTO) 0.6 10^3/uL (0.0-1.0); MONOCYTES % (AUTO) 6.6 %; NEUTROPHILS % (AUTO) 83.7 %; PLT - PLATELET COUNT 289 10^3/uL (130-450); RED BLOOD COUNT 5.49 10^6/uL (4.70-6.10); RED CELL DISTRIBUTION WIDTH 13.7 % (12.0-15.0); WHITE BLOOD COUNT 8.4 x10^3/uL (4.8-10.8)
[2021-08-07 10:24] LABS: ALBUMIN 3.5 g/dL (3.2-5.5); BILIRUBIN,TOTAL 0.9 mg/dL (0.2-1.0); CALCIUM 8.8 mg/dL (8.5-10.3); CREATININE 0.8 mg/dL (0.6-1.2); POTASSIUM 4.1 mmol/L (3.5-5.0); TOTAL PROTEIN 7.1 g/dL (6.7-8.2)
[2021-08-07 12:00] LABS: BILIRUBIN,URINE NEGATIVE (NEGATIVE); GLUCOSE, URINE (UA) NEGATIVE (NEGATIVE); KETONES,URINE (UA) TRACE mg/dL (NEGATIVE); LEUKOCYTE ESTERASE, URINE NEGATIVE (NEGATIVE); NITRITE,URINE NEGATIVE (NEGATIVE); OCCULT BLOOD,URINE TRACE-INTA (NEGATIVE); PROTEIN,URINE NEGATIVE (NEGATIVE); UROBILINOGEN,URINE 0.2 (NORMAL) E.U./dL (NORMAL)
[2021-08-07 12:01] LABS: CLARITY,URINE CLEAR (CLEAR)
[2021-08-07 12:46] LABS: B. PARAPERTUSSIS- RESP PCR PAN NOT DETECTED; B. PERTUSSIS- RESP PCR PANEL NOT DETECTED; C. PNEUMONIAE- RESP PCR PANEL NOT DETECTED; CORONAVIRUS 229E-RESP PCR NOT DETECTED; CORONAVIRUS HKU1-RESP PCR NOT DETECTED; CORONAVIRUS NL63-RESP PCR NOT DETECTED; CORONAVIRUS OC43-RESP PCR NOT DETECTED; HUMAN METAPNEUMOVIRUS NOT DETECTED; INFLUENZA A- RESP PCR PANEL NOT DETECTED; INFLUENZA B - RESP PCR PANEL NOT DETECTED; M. PNEUMONIAE- RESP PCR PANEL NOT DETECTED; PARAINFLUENZA VIRUS 1 NOT DETECTED; PARAINFLUENZA VIRUS 2 NOT DETECTED; PARAINFLUENZA VIRUS 3 NOT DETECTED; PARAINFLUENZA VIRUS 4 NOT DETECTED; RHINOVIRUS/ENTEROVIRUS NOT DETECTED; RSV- RESP PCR PANEL NOT DETECTED; SARS-CoV-2 -RESP PCR PANEL NOT DETECTED
[2021-08-07 13:38] VITALS: BP 118/68
== END 2021-08-07 13:38 | disposition home or self-care (01) ==
LOC: EDUNIT# → ED 09:04
DX: R50.9 Fever, unspecified (principal); Z20.822 Contact with and (suspected) exposure to COVID-19
CPT/HCPCS: 36415; 71045; 80053; 81003; 85025; 87631; 96360; 96361; 99283; 99284; A9270; 0202U; 81001; 87086

== ENCOUNTER 2021-08-08 15:00 | Outpatient (CLI) | payer MEDICARE ==
--- NOTE | 2021-08-08 18:21 | CONSULTATION NOTE ---
Palliative Care Follow Up - Referral Referring Provider: JANKI Martinez Time of Visit: [id number] Referral setting: Home Referral Reason: Fever/UTI/Dementia with behavior/Constipation - Information Sources Records reviewed: Previous records reviewed History/Review of Systems obtained from: Patient, Family (spouse, Duyen and daughter/MARILU Caceres), Caregiver (Cady) Exam limitations: Clinical condition (Advanced dementia) - History of Present Illness Update Brief HPI Update: This is a 75-year-old gentleman who was seen in follow-up today due to Alzheimer's dementia with behavioral disturbances, fever, failure to thrive, and constipation within his home with his daughter/MARILU Caceres, Duyen, and family friend/caregiver Cady present. Provider wore N95 mask during visit. The patient presented to the emergency department on 08/03 after he was experiencing abdominal pain and had not had a bowel movement in approximately a week when he was able to defecate. As he was febrile paramedics transferred him to the emergency department. He was admitted to the hospitalist service and was discharged on 08/05 with a diagnosis of urosepsis. His WBC was 12.1. He had a bowel movement on 08/[address] of the abdomen demonstrated large rectal fecal impaction with a very large diffuse fecal load. His chest x-ray was unremarkable. His urine cultures grew strep mitis greater than 100,000 CFU per mL and he was discharged on Cipro 500 mg twice daily x3 days. Patient spouse reports that she has not been administering the Cipro as the patient has not been taking it. She has to crush the Cipro and the patient is reluctant to take it by any other means. The patient then reported back to the emergency department on 08/07 due to being febrile of 100.2. Further work-up was done in the emergency department and he was given rectal acetaminophen and 1 L of normal saline. He had a viral panel obtained that is pending which includes for Covid of which she is unvaccinated for. His chest x-ray on 08/07 demonstrated no acute infectious process. With the patient returned home last evening he had a fall and was unable to ambulate independently. It took the patient's and daughter to get him into bed with his significant struggle. He is requiring self-feeding. He is incontinent of urine. He has not had a bowel movement since discharge from the hospital on 08/05 and patient's daughter and spouse report to abdominal distention. The patient spouse has not been administering any bowel regimen medication. Is difficult to determine and medication plan as the patient spouse will often stop medications or has difficulty administering them. She has not been administering the scheduled Haldol 2 mg 3 times daily as the patient is not excepting of taking this medication from her. She is also not given. Acid. The patient is able to take medications easily from his daughter. Patient was diagnosed with Alzheimer's dementia in 2017. No reversible causes were identified with routine work-up. He has had progressive dementia with behavioral disturbances that has been difficult to control. He has been trialed on Zyprexa, Depakote, Haldol and is presently on quetiapine and will reinitiate valproic acid. The patient's spouse has been routinely administered quetiapine 75 mg 3 times daily. The patient is also had a reduction in his overall oral intake and is only eating a few bites and is sipping out of a bottle. Noted intermittent coughing while sitting. Patient's daughter has ordered Thick-It. This morning he had scrambled eggs with jelly and putting and Ramen yesterday. Patient is seeing resting in bed with his head propped up with a wedge and 2 pillows with his feet hanging off of the bed due to his significant height. He is arousable and will only open his eyes for a few moments and mumble a word salad and drift back to sleep. No evidence of acute distress. Past Medical History: Patient has a past medical history of hyperlipidemia, shortness of breath on exertion, Alzheimer's dementia, GERD, incontinence, macular degeneration, s trabismus, anxiety, chronic back pain, remote h/o alcohol abuse. Not vaccinated for COVID-19. Social History - Living Situation Living arrangement: At home Living Situation: With spouse/s.o. Support System: The patient and his present have been for 49 years. The patient was previously and has 1 daughter from that relationship who is estranged. He and his present , Duyen, have 1 son together. He has 1 stepdaughter and 2 stepsons from his . 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 He grew up in [place], [place]. His stepdaughter, Nicki is very involved in assisting the patient and his with caregiving is the patient's DPOA with contact number [phone]. Daughter has not been at work the last 4 days due to helping patient's spouse with care. Palliative Care volunteer Chandana is providing support. They have applied for [facility] support however were "rejected" due to a prior property per daughter's report. APS has requested locks for cabinets and are pending. The patient's family pulled funds together for the patient to have a two week [facility] for the patient's spouse while their daughter is out of town in June 2021. Patient is a . S/p Palliative Care Social Work consult July 2021. Medications/Allergies - Medications Home Medications: Ambulatory Orders Medication Instructions Recorded Confirmed QUEtiapine [SEROquel] 75 mg PO TID 02/23/21 08/03/21 Haloperidol Oral Soln [Haldol Oral 2 mg PO Q6H PRN 05/16/21 08/03/21 Soln] polyethylene glycoL 3350 [Miralax] 1 cap PO BID 05/30/21 08/03/21 Valproic Acid (As Sodium Salt) 125 mg PO QPM 06/08/21 08/03/21 [Valproic Acid] LORazepam [Ativan] 1 tab PO Q6H PRN 08/08/21 08/08/21 Magnesium Hydroxide [Milk of 30 ml PO Q72H PRN 08/08/21 08/08/21 Magnesia] Morphine Oral Soln [Roxanol] 5 mg PO Q4H PRN 08/08/21 08/08/21 Senna [Senokot] 1 tab PO BID PRN 08/08/21 08/08/21 - Allergies Allergies/Adverse Reactions: Allergies Allergy/AdvReac Type Severity Reaction Status Date / Time No Known Drug Allergies Allergy Verified 08/08/21 18:38 Review of Systems - Constitutional Constitutional: reports: Fatigue, Fever (Tmax 100.2F per daughter), Weakness, Poor appetite (requiring assistance and decreased oral intake), Weight loss. denies: Chills, Diaphoresis, Night sweats - Eyes Eyes: reports: Corrective lenses - Ears, Nose & Throat Ears, Nose & Throat: reports: Hearing loss, Dentures, Dry mouth. denies: Hearing aids - Cardiovascular Cardiovascular: denies: Edema - Respiratory Respiratory: reports: Other (No dyspahgia with meals but noted coughing at times with liquids but may be due to lack of elevation in bed). denies: Wheezing - Gastrointestinal Gastrointestinal: denies: Constipation (improved with miralx), Vomiting - Genitourinary Genitourinary: reports: Incontinence. denies: Hematuria - Musculoskeletal Musculoskeletal: reports: Muscle weakness, Transfer issues (unable to ambulate without assistance from 2 persons). denies: Joint pain - Integumentary Integumentary: reports: Dryness - Neurological Neurological: reports: Memory problems - Psychiatric Psychiatric: reports: Anxiety, Hallucinations (will see people in the rodriguez), Aggitation, Behavior disturbances - All Other Systems All Other Systems: reports: Reviewed and negative (Review of systems supplemented by daughter and is a poor historian due to dementia.) Physical Exam - Vital Signs Temperature: 37.1 C Pulse Rate: 91 O2 Saturation: 94 (on RA) Blood Pressure: 104/73 (left wrist) - Physical Exam General Appearance: positive: No acute distress, Other (resting in bed, arousable, but word salad and drifts back to sleep) Eyes Bilateral: positive: Other ( +left exotropia) ENT: positive: Other (slightly dry MMM) Neck: positive: Trachea midline Cardiovascular: positive: Regular rate & rhythm Respiratory: positive: No respiratory distress, Breath sounds nml. negative: Rales Abdomen: positive: Non-tender, Nml bowel sounds, Distended (on initial examination), Other (+round and slightly firm; administered fleet enema x 1 with minor fecal matter and flatus with reduction in distention and abdomen becoming soft. No stool noted in recal vault on digital exam.). negative: Soft, Guarding Skin: positive: Dryness (generalized) Extremities: positive: No pedal edema Neurologic/Psychiatric: positive: Mood/affect nml (calm without agitation), Disoriented to place, Disoriented to time, Other (word salad today with mumblings) Palliative Care - POLST Patient has POLST: Yes POLST Status: DNR, Comfort Measures Pain: No pain Nausea: None Anorexia: Moderate (4-6) Constipation: Unmanaged (see HPI) Performance Status: Since last evaluation patient is now nonambulatory requiring 2 person assistance for transfers. Urinary incontinence. Bowel incontinence intermittently. Requiring assistance with meals. F AST 6C - Palliative Care Discussion: Medication administration continues to be a struggle within this household with the patient's spouse stopping and starting medications including presently Haldol and MiraLAX. Spouse has been unable to administer ciprofloxacin that had been discharged for 3-day course to treat urinary tract infection for which the patient had been hospitalized for on 08/03 to 08/05/2021. Discussed transitioning the patient to liquid form or ciprofloxacin however, the continued challenges with medication administration remain as the patient spouse is the primary caregiver and is often met with reluctance despite altering the medication into different forms and food, liquid, etc. Both the patient spouse and daughter/DPOA elected not to proceed with liquid form of ciprofloxacin and wish to focus on comfort recognizing that this may be a terminal event for the patient. They wish to focus on comfort measures within the home environment have reviewed hospice services at length with all parties within the home with questions answered and addressed. Comfort medications to be prescribed to be available in the home until hospice is onboarded. Administer Fleet enema x1 today with reduction in patient's firmness of abdomen as well as distention however, remains without an adequate bowel movement. Discussed bowel titration medications today and advised the patient spouse not to stop any medications for the bowel regimen moving forward has even with minimal oral intake the patient should continue to have a bowel movement at least daily to every other day with understanding verbalized. Results - Lab Results Lab results reviewed: Yes Lab and Imaging Results: Imaging from 08/03 and 08/07 from inpatient and ED visit as well as urine culture results from 08/03 Impression and Recommendations - Palliative Care Impression: This is a 75-year-old gentleman with progressive Alzheimer's dementia with hallucinations, delusions, behavioral disturbances with agitation now with presenting with failure to thrive in the setting of urinary tract infection with FAS T7 C and constipation. Patient would benefit form of aggressive bowel regimen at this was reviewed at length. Patient's daughter/DPOA and spouse elected not to proceed with continuation of treatment of urinary tract infection and instead wish to focus on comfort measures within the home environment to support the patient with a transition to hospice services. Spouse continues to present with high caregiver burden and as at risk for burnout. Palliative care to continue to provide support for symptom management, care coordination anticipatory guidance until the patient transitions to hospice services with referral made to hospice. Recommendations/Counseling Done: 1. Urinary tract infection. Patient was admitted to [facility] from 08/03-08/05 with diagnosis of urosepsis that was discharged on cipr ofloxacin x3 days however, the patient has not been amenable to taking the oral antibiotic therapy and today after lengthy discussion weighing benefits versus burdens of treatment patient's daughter/DPOA and spouse elected not to transition to a liquid form of ciprofloxacin and instead to focus on comfort measures within the home environment and transition to hospice. All parties are aware that this may be a terminal event for the patient given his significant decline in the last few weeks. They recognize and verbalize the progression of the patient's decline and again, wish to focus on comfort. 2. Failure to thrive. Significant progression with the patient's underlying Alzheimer's dementia to FAS T7 C. Concern for the patient's spouse and daughter who with transferring and request that if the patient were to fall or requires moving to hospital bed to request for a lift assist and understanding verbalized. Provided handout for contact information for lift assist. Patient has significant reduction in his oral intake both liquid and food. Now requiring assistance with feeding. Would continue to expect a continual decline given the patient's lack of oral intake. 3. Constipation. CT of the abdomen and pelvis demonstrated large rectal fecal impaction on 08/03 on admission to [facility]. Patient was not discharged on a bowel regimen and last noted bowel movement was on 08/04 and patient presented with distention and firmness of the abdomen that reduced with administration of Fleet enema x1. However, patient remains with high fecal load and advised to administer milk of magnesia x1 dose per package instruction from [id number] tonight and then every 3 days if no bowel movement. To have senna 8.6 mg to take 1 tablet twice a day as needed for constipation within the home. To also initiate MiraLAX 1 cap twice a day and reviewed titration with patient's spouse and daughter. Advised patient spouse to not stop MiraLAX moving forward. Understanding verbalized. Sedentary lifestyle contributing. Patient's family members to contact palliative care in a.m. regarding bowel regimen status. 4. Caregiver burden. Patient spouse continues to her remain as primary caregiver receiving assistance from the patient's daughter as well as an admit paid caregiver. Patient spouse remains high risk for caregiver burnout. Supportive and empathetic listening provided today. Demonstrated incontinence care within the bed for all parties. 5. Alzheimer's dementia with behavioral disturbances. Chronic. Progressive. Fall precautions. Patient had a paradoxical response to Zyprexa and was discontinued. Patient could not tolerate administration of Depakote but this was discontinued. No longer on citalopram. Continues on quetiapine 75 mg 3 times daily. Patient spouse has not been administering Haldol. Will reduce Haldol to 2 mg every 6 hours as needed for anxiety/agitation. Reduce Velp uric acid suspension to 120 mg once daily. This is done given the difficulty the patient spouse has been administering medications. Also to initiate lorazepam 0.5 mg take 1 tablet by mouth every 6 hours as needed for anxiety as part as comfort medications. Patient now presents with FAS T7 C and would continue to expect a gradual decline. Patient's family wishes to focus on comfort measures within the home. Given the patient's advanced age and chronic comorbidities a gradual decline is expected. 6. Advanced care planning. Patient has POLST in place as DN AR with comfort measures. Patient's family wishes to focus on comfort and transition to hospice services. Contacted hospice of [facility] and not able to admit patient until next week. [facility] to admit next week or sooner based on nursing availability. To obtain a hospital bed and bedside table which will assist in care for the patient. Rx for morphine sulfate 20 mg/mL to take 5 mg by mouth or sublingual every 4 hours as needed for severe pain or shortness of breath Rx to [facility] pharmacy to have on hand for comfort measures within the home. Reviewed hospice support and criteria at length with questions answered and addressed. Total time spent 115 minutes with greater than 50% of this spent in counseling and coordination of care with patient's spouse and daughter/DPOA; administration of fleet enema; incontinence care; examination of patient; escalation vs de- escalation of care; hospice philosophy; review of pain and symptom management and anticipatory guidance. Coordination with hospice admission RN Kyleigh with [facility]. Disclaimer: The chart note was formulated using voice recognition technology and unfortunately sound alike errors may occur.
== END 2021-08-08 15:01 | disposition home or self-care (01) ==
LOC: PC 15:00
PROVIDERS: ATTEND Nurse Practitioner Family
DX: Z51.5 Encounter for palliative care (principal); N39.0 Urinary tract infection, site not specified; R62.7 Adult failure to thrive; G30.9 Alzheimer's disease, unspecified; F02.81 Dementia in other diseases classified elsewhere, unspecified severity, with behavioral disturbance; R44.1 Visual hallucinations; F22 Delusional disorders; K59.00 Constipation, unspecified; Z66 Do not resuscitate
CPT/HCPCS: 99350